=== PATIENT | female | born 1930 | race Caucasian/White ===

== ENCOUNTER 2017-10-13 14:52 | Inpatient (IN) | payer MEDICARE, OTHER ==
[~2017-10-13] VITALS: Ht 160 cm; Wt 83.0 kg
[~2017-10-13 14:52] MED LIST: ECOT81TA2 PO; LISI20 PO; LORTA5 PO
[2017-10-13 14:59] VITALS: BP 146/65; PULSE 58; RESP 16; TEMP 97.8; O2SAT 98
[2017-10-13 15:25] VITALS: RESP 17; O2SAT 98
[2017-10-13] MEDS: SODIUM CHLORIDE 0.9% FLUSH 10 ML FLUSH IVF PRN ×2 (15:28→18:22)
[2017-10-13] MEDS ORDERED: MORPHINE SULFATE 4 MG/ML INJ IV PUSH ONE ×2 (15:30→18:15)
[2017-10-13] MEDS ORDERED: LISI-515 PO (15:49)
[2017-10-13] MEDS ORDERED: ASPI1TAB57 PO (15:49)
[2017-10-13] MEDS ORDERED: ARIC23TA PO (15:49)
[2017-10-13] MEDS ORDERED: DEPA125T PO (15:49)
[2017-10-13] MEDS ORDERED: REME30TA PO (15:49)
[2017-10-13] MEDS ORDERED: AMLO5 PO (15:49)
[2017-10-13] MEDS ORDERED: VITA1000 PO (15:49)
--- NOTE | 2017-10-13 16:14 | RADRPT ---
EXAM DATE/TIME: 10/13/2017 15:48 [facility] COMPARISON: CHEST SINGLE AP, June 16, 2015, 13:13. INDICATIONS : Evaluate for pneumonia, pneumothorax, or communicable disease. Pre op hip surgery. MEDICAL HISTORY : None. SURGICAL HISTORY : None. ENCOUNTER: Initial ACUITY: 1 day PAIN SCORE: 10/10 LOCATION: Bilateral chest FINDINGS: The heart is normal. The pulmonary vascular pattern is normal. The lungs demonstrate no focal infiltr ate. There is a questionable vague nodular density overlying the right upper lung field. Outpatient C T of the chest may be helpful for further characterization of this finding if clinically indicated. D egenerative changes are noted involving the shoulders and thoracic spine. CONCLUSION: 1. No acute focal pulmonary or pulmonary vascular congestion. 2. Questionable vague nodular density overlying the right upper lung field. Outpatient CT of the ches t may be helpful for further characterization of this finding if clinically indicated. Bryson Villa MD on October 13, 2017 at 16:09 Board Certified Radiologist. This report was verified electronically.
[2017-10-13 16:15] LABS: AUTOMATED NEUTROPHIL # 6.1 TH/MM3 (1.8-7.7); BASOPHIL % 0.4 % (0.0-2.0); EOSINOPHIL # 0.1 TH/MM3 (0-0.4); EOSINOPHIL % 1.3 % (0.0-4.0); HEMATOCRIT 40.2 % (35.0-46.0); HEMOGLOBIN 13.4 GM/DL (11.6-15.3); LYMPH % 29.5 % (9.0-44.0); MEAN CELL VOLUME 94.9 FL (80.0-100.0); MEAN CORPUSCULAR HEMOGLOBIN 31.7 PG (27.0-34.0); MEAN CORPUSCULAR HGB CONC 33.4 % (32.0-36.0); MEAN PLATELET VOLUME 10.3 FL (7.0-11.0); MONO % 8.2 % (0.0-8.0); MONOCYTE # 0.8 TH/MM3 (0-0.9); NEUT % 60.6 % (16.0-70.0); PLATELET COUNT 212 TH/MM3 (150-450); RED BLOOD COUNT 4.23 MIL/MM3 (4.00-5.30); RED CELL DISTRIBUTION WIDTH 13.4 % (11.6-17.2); WHITE BLOOD COUNT 10.1 TH/MM3 (4.0-11.0)
--- NOTE | 2017-10-13 16:16 | RADRPT ---
EXAM DATE/TIME: 10/13/2017 15:51 [facility] COMPARISON: CHEST SINGLE AP, October 13, 2017, 15:48. INDICATIONS : Left pelvic pain after fall. MEDICAL HISTORY : None. SURGICAL HISTORY : None. ENCOUNTER: Initial ACUITY: 1 day PAIN SCORE: 10/10 LOCATION: Left pelvis. FINDINGS: The examination demonstrates a moderately displaced fracture through the left femoral neck. The remai nder the osseous structures of the pelvis are intact. There are degenerative changes in lower lumbar spine. CONCLUSION: 1. Moderately displaced fracture of the left femoral neck. Jose Bueno MD on October 13, 2017 at 16:13 Board Certified Radiologist. This report was verified electronically.
--- NOTE | 2017-10-13 16:18 | RADRPT ---
EXAM DATE/TIME: 10/13/2017 15:52 [facility] COMPARISON: PELVIS AP ONLY, October 13, 2017, 15:51. INDICATIONS : Left femur pain after fall. MEDICAL HISTORY : None. SURGICAL HISTORY : None. ENCOUNTER: Initial ACUITY: 1 day PAIN SCORE: 10/10 LOCATION: Left proximal femur. FINDINGS: There is a moderately displaced fracture through the left femoral neck. The remainder of the femur is intact. Bony mineralization is within normal limits. There is atherosclerotic plaquing in the superf icial femoral artery. CONCLUSION: 1. Moderately displaced fracture of the left femoral neck. Jose Bueno MD on October 13, 2017 at 16:16 Board Certified Radiologist. This report was verified electronically.
--- NOTE | 2017-10-13 16:43 | RADRPT ---
EXAM DATE/TIME: 10/13/2017 16:21 [facility] COMPARISON: No previous studies available for comparison. INDICATIONS : Head pain with dizziness and fall. RADIATION DOSE: 55.26 CTDIvol (mGy) MEDICAL HISTORY : Hypertension. Diabetes mellitus type 2. SURGICAL HISTORY : Hysterectomy. ENCOUNTER: Initial ACUITY: 1 day PAIN SCALE: 4/10 LOCATION: Bilateral cranial TECHNIQUE: Multiple contiguous axial images were obtained of the head. Using automated exposure control and adj ustment of the mA and/or kV according to patient size, radiation dose was kept as low as reasonably a chievable to obtain optimal diagnostic quality images. DICOM format image data is available electro nically for review and comparison. FINDINGS: CEREBRUM: The ventricles are normal for age. No evidence of midline shift, mass lesion, hemorrhage or acute in farction. No extra-axial fluid collections are seen. POSTERIOR FOSSA: The cerebellum and brainstem are intact. The 4th ventricle is midline. The cerebellopontine angle i s unremarkable. EXTRACRANIAL: The visualized portion of the orbits is intact. SKULL: The calvaria is intact. No evidence of skull fracture. CONCLUSION: 1. No acute intracranial abnormalities. Sahggy Young MD on October 13, 2017 at 16:35 Board Certified Radiologist. This report was verified electronically.
[2017-10-13 16:45] LABS: ALT (GPT) 14 U/L (10-53)
[2017-10-13 16:48] LABS: ALBUMIN 2.9 GM/DL (3.4-5.0); AST (GOT) 17 U/L (15-37); BICARBONATE 22.4 MEQ/L (21.0-32.0); BLOOD UREA NITROGEN 14 MG/DL (7-18); CALCIUM 8.7 MG/DL (8.5-10.1); CHLORIDE 107 MEQ/L (98-107); CREATININE 1.11 MG/DL (0.50-1.00); GLOMERULAR FILTRATION RATE 46 ML/MIN (>89); GLUCOSE,RANDOM 157 MG/DL (74-106); SODIUM (NA) 141 MEQ/L (136-145)
[2017-10-13 16:49] LABS: ALKALINE PHOSPHATASE 63 U/L (45-117); TOTAL BILIRUBIN ADULT 0.3 MG/DL (0.2-1.0); TOTAL PROTEIN 7.2 GM/DL (6.4-8.2); TROPONIN I LESS THAN 0.02 NG/ML (0.02-0.05)
--- NOTE | 2017-10-13 17:06 | RADRPT ---
EXAM DATE/TIME: 10/13/2017 16:21 [facility] COMPARISON: No previous studies available for comparison. INDICATIONS : Neck pain with dizzness and a fall. RADIATION DOSE: 21.44 CTDIvol (mGy) MEDICAL HISTORY : Hypertension. Diabetes mellitus type 2. SURGICAL HISTORY : Hysterectomy. ENCOUNTER: Initial ACUITY: 1 day PAIN SCALE: 6/10 LOCATION: Bilateral neck region. TECHNIQUE: Volumetric scanning of the cervical spine was performed. Multiplanar reconstructions in the sagittal, coronal and oblique axial planes were performed. Using automated exposure control and adjustment o f the mA and/or kV according to patient size, radiation dose was kept as low as reasonably achievable to obtain optimal diagnostic quality images. DICOM format image data is available electronically f or review and comparison. FINDINGS: There is moderate degenerative disc disease and facet arthropathy. No acute bony amounts. No preverte bral soft tissue swelling. There is opacification of the left mastoid air cells. CONCLUSION: 1. Moderate degenerative disc disease. No acute findings. Left-sided mastoid air cell disease. Shaggy Young MD on October 13, 2017 at 16:52 Board Certified Radiologist. This report was verified electronically.
--- NOTE | 2017-10-13 17:26 | PD ---
HPI Chief Complaint: Fall Time Seen by Provider: 15:12 Travel History International Travel<30 days: No Contact w/Intl Traveler<30days: No Traveled to known affect area: No History of Present Illness HPI Patient is an 87-year-old female who is brought in from her longterm after a fall. She does not remember the event. She is complaining of left hip pain. She has dementia and is a poor historian. PFSH Past Medical History Hx Anticoagulant Therapy: Yes (ASA) Arthritis: No Asthma: No Autoimmune Disease: No Anxiety: No Depression: Yes Heart Rhythm Problems: No Cardiovascular Problems: Yes (HBP) High Cholesterol: No Chest Pain: No Congestive Heart Failure: No COPD: No Cerebrovascular Accident: No Dementia: Yes Diabetes: Yes Patient Takes Glucophage: No Diminished Hearing: No Gastrointestinal Disorders: No GERD: No Genitourinary: No Headaches: No Hiatal Hernia: No Hypertension: Yes Immune Disorder: No Kidney Stones: No Medical other: Yes (VITAMIN D DEFICIENT) Musculoskeletal: No Neurologic: No Psychiatric: Yes Reproductive: No Respiratory: No Integumentary: Yes (DERMATITIS) Immunizations Current: Yes Migraines: No Renal Failure: No Seizures: No Sleep Apnea: No Tetanus Vaccination: > 5 Years Influenza Vaccination: Yes ?: Not Menopausal: Yes Past Surgical History Abdominal Surgery: No Cardiac Surgery: No Section: Yes Ear Surgery: No Endocrine Surgery: No Eye Surgery: No Genitourinary Surgery: No Gynecologic Surgery: Yes Hysterectomy: Yes Neurologic Surgery: No Oral Surgery: No Thoracic Surgery: No Other Surgery: No Social History Alcohol Use: No (DENIES) Tobacco Use: No Substance Use: No Allergies-Medications (Allergen,Severity, Reaction): Coded Allergies: No Known Allergies (Verified Allergy, Unknown, 10/13/17) Reported Meds & Prescriptions Reported Meds & Active Scripts Active Reported Vitamin D-1000 (Cholecalciferol) 1,000 Unit Tab 2,000 Units PO DAILY Remeron (Mirtazapine) 30 Mg Tab 30 Mg PO HS Norvasc (Amlodipine Besylate) 5 Mg Tab 5 Mg PO DAILY Lisinopril 20 Mg Tab 20 Mg PO DAILY Depakote DR (Divalproex Sodium) 125 Mg Tabdr 125 Mg PO BID Aspirin 81 (Aspirin) 81 Mg Tabdr 81 Mg PO DAILY Aricept (Donepezil) 23 Mg Tab 10 Mg PO DAILY Do not split, crushed or chewed. Review of Systems ROS Limitations: Clinical Condition Physical Exam Narrative GENERAL: Awake and alert, but confused. SKIN: Focused skin assessment warm/dry. No wounds or signs of infection. HEAD: Atraumatic. Normocephalic. EYES: Pupils equal and round. No scleral icterus. Extraocular movements intact. ENT: Mucous membranes pink and moist. NECK: Trachea midline. No JVD. CARDIOVASCULAR: Regular rate and rhythm. No murmur appreciated. RESPIRATORY: No accessory muscle use. Clear to auscultation. Breath sounds equal bilaterally. GASTROINTESTINAL: Abdomen soft, non-tender, nondistended. MUSCULOSKELETAL: No obvious deformities. No clubbing. No cyanosis. No edema. Tender to palpation of the left hip. Pedal pulses intact. NEUROLOGICAL: Awake and alert. No obvious cranial nerve deficits. Motor grossly within normal limits. Normal speech. PSYCHIATRIC: Appropriate mood and affect; insight and judgment normal. Data Data Last Documented VS Vital Signs Date Time Temp Pulse Resp B/P (MAP) Pulse Ox O2 Delivery O2 Flow Rate FiO2 10/13/17 17:30 97.8 75 17 130/62 (84) 98 Room Air Orders Orders Complete Blood Count With Diff (10/13/17 15:21) Comprehensive Metabolic Panel (10/13/17 15:21) Troponin I (10/13/17 15:21) Urinalysis - C+S If Indicated (10/13/17 15:21) Chest, Single Ap (10/13/17 15:21) Ct Brain W/O Iv Contrast(Rout) (10/13/17 15:21) Ct Cerv Spine W/O Contrast (10/13/17 15:21) Ecg Monitoring (10/13/17 15:21) Iv Access Insert/Monitor (10/13/17 15:21) Oximetry (10/13/17 15:21) Sodium Chloride 0.9% Flush (Ns Flush) (10/13/17 15:30) Pelvis, Ap Only (Routine) (10/13/17 ) Femur (Ap & Lat/2vws) (10/13/17 ) Morphine Inj (Morphine Inj) (10/13/17 15:30) Morphine Inj (Morphine Inj) (10/13/17 18:15) Urinary Catheter Insert/Apply (10/13/17 18:08) Admit Order (Ed Use Only) (10/13/17 ) Labs Laboratory Tests Test 10/13/17 15:31 White Blood Count 10.1 TH/MM3 Red Blood Count 4.23 MIL/MM3 Hemoglobin 13.4 GM/DL Hematocrit 40.2 % Mean Corpuscular Volume 94.9 FL Mean Corpuscular Hemoglobin 31.7 PG Mean Corpuscular Hemoglobin Concent 33.4 % Red Cell Distribution Width 13.4 % Platelet Count 212 TH/MM3 Mean Platelet Volume 10.3 FL Neutrophils (%) (Auto) 60.6 % Lymphocytes (%) (Auto) 29.5 % Monocytes (%) (Auto) 8.2 % Eosinophils (%) (Auto) 1.3 % Basophils (%) (Auto) 0.4 % Neutrophils # (Auto) 6.1 TH/MM3 Lymphocytes # (Auto) 3.0 TH/MM3 Monocytes # (Auto) 0.8 TH/MM3 Eosinophils # (Auto) 0.1 TH/MM3 Basophils # (Auto) 0.0 TH/MM3 CBC Comment DIFF FINAL Differential Comment Blood Urea Nitrogen 14 MG/DL Creatinine 1.11 MG/DL Random Glucose 157 MG/DL Total Protein 7.2 GM/DL Albumin 2.9 GM/DL Calcium Level 8.7 MG/DL Alkaline Phosphatase 63 U/L Aspartate Amino Transf (AST/SGOT) 17 U/L Alanine Aminotransferase (ALT/SGPT) 14 U/L Total Bilirubin 0.3 MG/DL Sodium Level 141 MEQ/L Potassium Level 4.5 MEQ/L Chloride Level 107 MEQ/L Carbon Dioxide Level 22.4 MEQ/L Anion Gap 12 MEQ/L Estimat Glomerular Filtration Rate 46 ML/MIN Troponin I LESS THAN 0.02 NG/ML [facility] Medical Decision Making Medical Screen Exam Complete: Yes Emergency Medical Condition: Yes Medical Record Reviewed: Yes Interpretation(s) ECG shows normal sinus rhythm at 69 with PVCs Differential Diagnosis Hip fracture versus syncope versus ICH Narrative Course Patient is an 87-year-old female who comes in complaining of left hip pain after a fall. Exam shows tenderness of left hip. IV established, labs sent. Labs show no acute abnormalities. CT head performed shows no acute abnormalities. X-ray of the lung left hip shows a femoral neck fracture. Patient given pain medicine. I spoke with orthopedics who would like the patient to be n.p.o. after midnight for surgery tomorrow. Patient admitted for further management. Last [address] 10/13/17 1521 Signed Impressions: Service Date/Time: Friday, October 13, 2017 16:21 - CONCLUSION: 1. No acute intracranial abnormalities. Shaggy Young MD Chest X-Ray 10/13/17 1521 Signed Impressions: Service Date/Time: Friday, October 13, 2017 15:48 - CONCLUSION: 1. No acute focal pulmonary or pulmonary vascular congestion. 2. Questionable vague nodular density overlying the right upper lung field. Outpatient CT of the chest may be helpful for further characterization of this finding if clinically indicated. Bryson Villa MD Cervical Spine CT 10/13/17 1521 Signed Impressions: Service Date/Time: Friday, October 13, 2017 16:21 - CONCLUSION: 1. Moderate degenerative disc disease. No acute findings. Left-sided mastoid air cell disease. Shaggy Young MD Pelvis X-Ray 10/13/17 0000 Signed Impressions: Service Date/Time: Friday, October 13, 2017 15:51 - CONCLUSION: 1. Moderately displaced fracture of the left femoral neck. Jose Bueno MD Femur X-Ray 10/13/17 0000 Signed Impressions: Service Date/Time: Friday, October 13, 2017 15:52 - CONCLUSION: 1. Moderately displaced fracture of the left femoral neck. Jose Bueno MD Diagnosis Primary Impression: Fracture of femoral neck, left Qualified Codes: S72.002A - Fracture of unspecified part of neck of left femur , initial encounter for closed fracture Admitting Information Admitting Physician Requests: Admit Elisha Mc MD Oct 13, 2017 17:26
[2017-10-13 17:30] VITALS: BP 130/62; PULSE 75; RESP 17; TEMP 97.8; O2SAT 98
[2017-10-13 18:30] VITALS: BP 130/67; PULSE 82; RESP 18; TEMP 97.8; O2SAT 98
[2017-10-13] MEDS ORDERED: MAGNESIUM HYDROXIDE SUSP 30 ML CUP PO PRN (19:00)
[2017-10-13] MEDS ORDERED: SODIUM CHLORIDE 0.9% FLUSH 10 ML FLUSH IV FLUSH PRN (19:00)
[2017-10-13] MEDS ORDERED: ACETAMINOPHEN/HYDROcodone 325 MG/5 MG TAB PO PRN (19:00)
[2017-10-13] MEDS ORDERED: ACETAMINOPHEN 325 MG TAB PO PRN ×2 (19:00)
[2017-10-13] MEDS ORDERED: NALOXONE HCL 0.4 MG/ML AMP IV PUSH PRN (19:00)
[2017-10-13] MEDS ORDERED: ONDANSETRON HCL 4 MG/2 ML VIAL IVP PRN (19:00)
--- NOTE | 2017-10-13 19:05 | HHI.HP ---
[facility] No Primary Care Physician Admission Diagnosis hip fracture Diagnoses: (1) Fracture of femoral neck, left Chief Complaint: Left hip pain Travel History International Travel<30 Days: No Contact w/Intl Traveler <30 Da: No Traveled to Known Affected Are: No History of Present Illness 87-year-old female with a history of dementia, was brought in from a local [facility] facility for evaluation of left hip pain following a mechanical fall. Patient does not know how she found herself in a brown however she complained of left hip. This study revealed fractured left femoral neck for which orthopedic surgery was consulted. The exam was limited as patient is a poor historian Review of Systems ROS Limitations: Poor Historian Except as stated in HPI: all other systems reviewed are Neg Past Family Social History Past Medical History Dementia Hypertension Hyperlipidemia Past Surgical History Reported Medications Vitamin D-1000 (Cholecalciferol) 1,000 Unit Tab 2,000 Units PO DAILY Remeron (Mirtazapine) 30 Mg Tab 30 Mg PO HS Norvasc (Amlodipine Besylate) 5 Mg Tab 5 Mg PO DAILY Lisinopril 20 Mg Tab 20 Mg PO DAILY Depakote DR (Divalproex Sodium) 125 Mg Tabdr 125 Mg PO BID Aspirin 81 (Aspirin) 81 Mg Tabdr 81 Mg PO DAILY Aricept (Donepezil) 23 Mg Tab 10 Mg PO DAILY Do not split, crushed or chewed. Allergies: Coded Allergies: No Known Allergies (Verified Allergy, Unknown, 10/13/17) Family History Due to patient's advanced age, family history not relevant for this case Social History No tobacco, alcohol or illicit drug intake Physical Exam Vital Signs Vital Signs Date Time Temp Pulse Resp B/P (MAP) Pulse Ox O2 Delivery O2 Flow Rate FiO2 10/13/17 18:30 97.8 82 18 130/67 (88) 98 Room Air 10/13/17 18:27 17 10/13/17 17:30 97.8 75 17 130/62 (84) 98 Room Air 10/13/17 15:33 16 10/13/17 15:25 17 98 Room Air 10/13/17 15:00 56 18 99 Room Air 10/13/17 14:59 97.8 58 16 146/65 (92 98 Physical Exam GENERAL: This is a well-nourished, well-developed patient, moaning in pain SKIN: No rashes, ecchymoses or lesions. Cool and dry. HEAD: Atraumatic. Normocephalic. No temporal or scalp tenderness. EYES: Pupils equal round and reactive. Extraocular motions intact. No scleral icterus. No injection or drainage. ENT: Nose without bleeding, purulent drainage or septal hematoma. Throat without erythema, tonsillar hypertrophy or exudate. Uvula midline. Airway patent. NECK: Trachea midline. No JVD or lymphadenopathy. Supple, nontender, no meningeal signs. CARDIOVASCULAR: Regular rate and rhythm without murmurs, gallops, or rubs. RESPIRATORY: Clear to auscultation. Breath sounds equal bilaterally. No wheezes , rales, or rhonchi. GASTROINTESTINAL: Abdomen soft, non-tender, nondistended. No hepato-splenomegaly , or palpable masses. No guarding. MUSCULOSKELETAL: Extremities without clubbing, cyanosis, or edema. Left lower extremity internally rotated, tender to palpation at the hip joint NEUROLOGICAL: Awake and alert. Cranial nerves II through XII intact. Motor and sensory grossly within normal limits. Laboratory Laboratory Tests Test 10/13/17 15:31 White Blood Count 10.1 Red Blood Count 4.23 Hemoglobin 13.4 Hematocrit 40.2 Mean Corpuscular Volume 94.9 Mean Corpuscular Hemoglobin 31.7 Mean Corpuscular Hemoglobin Concent 33.4 Red Cell Distribution Width 13.4 Platelet Count 212 Mean Platelet Volume 10.3 Neutrophils (%) (Auto) 60.6 Lymphocytes (%) (Auto) 29.5 Monocytes (%) (Auto) 8.2 Eosinophils (%) (Auto) 1.3 Basophils (%) (Auto) 0.4 Neutrophils # (Auto) 6.1 Lymphocytes # (Auto) 3.0 Monocytes # (Auto) 0.8 Eosinophils # (Auto) 0.1 Basophils # (Auto) 0.0 CBC Comment DIFF FINAL Differential Comment Blood Urea Nitrogen 14 Creatinine 1.11 Random Glucose 157 Total Protein 7.2 Albumin 2.9 Calcium Level 8.7 Alkaline Phosphatase 63 Aspartate Amino Transf (AST/SGOT) 17 Alanine Aminotransferase (ALT/SGPT) 14 Total Bilirubin 0.3 Sodium Level 141 Potassium Level 4.5 Chloride Level 107 Carbon Dioxide Level 22.4 Anion Gap 12 Estimat Glomerular Filtration Rate 46 Troponin I LESS THAN 0.02 Result Diagram: 10/13/17 1531 10/13/17 1531 Imaging Last Impressions Head CT 10/13/17 1521 Signed Impressions: Service Date/Time: Friday, October 13, 2017 16:21 - CONCLUSION: 1. No acute intracranial abnormalities. Shaggy Young MD Chest X-Ray 10/13/17 1521 Signed Impressions: Service Date/Time: Friday, October 13, 2017 15:48 - CONCLUSION: 1. No acute focal pulmonary or pulmonary vascular congestion. 2. Questionable vague nodular density overlying the right upper lung field. Outpatient CT of the chest may be helpful for further characterization of this finding if clinically indicated. Bryson Villa MD Cervical Spine CT 10/13/17 1521 Signed Impressions: Service Date/Time: Friday, October 13, 2017 16:21 - CONCLUSION: 1. Moderate degenerative disc disease. No acute findings. Left-sided mastoid air cell disease. Shaggy Young MD Pelvis X-Ray 10/13/17 0000 Signed Impressions: Service Date/Time: Friday, October 13, 2017 15:51 - CONCLUSION: 1. Moderately displaced fracture of the left femoral neck. Jose Bueno MD Femur X-Ray 10/13/17 0000 Signed Impressions: Service Date/Time: Friday, October 13, 2017 15:52 - CONCLUSION: 1. Moderately displaced fracture of the left femoral neck. Jose Bueno MD Septic Shock Reassessment Septic shock perfusion: reassessment completed Caprini VTE Risk Assessment Caprini VTE Risk Assessment: Mod/High Risk (score >= 2) Caprini Risk Assessment Model Point Value = 1 Point Value = 2 Point Value = 3 Point Value = 5 Age 41-60 Minor surgery BMI > 25 kg/m2 Swollen legs Varicose veins or History of unexplained or recurrent spontaneous Oral contraceptives or hormone replacement Sepsis (< 1 month) Serious lung disease, including pneumonia (< 1 month) Abnormal pulmonary function Acute myocardial infarction Congestive heart failure (< 1 month) History of inflammatory bowel disease Medical patient at bed rest Age 61-74 Arthroscopic surgery Major open surgery (> 45 min) Laparoscopic surgery (> 45 min) Malignancy Confined to bed (> 72 hours) Immobilizing plaster cast Central venous access Age >= 75 History of VTE Family history of VTE Factor V Leiden Prothrombin [id number] Lupus anticoagulant Anticardiolipin antibodies Elevated serum homocysteine Heparin-induced thrombocytopenia Other congenital or acquired thrombophilia Stroke (< 1 month) Elective arthroplasty Hip, pelvis, or leg fracture Acute spinal cord injury (< 1 month) Prophylaxis Regimen Total Risk Factor Score Risk Level Prophylaxis Regimen 0-1 Low Early ambulation 2 Moderate Order ONE of the following: *Sequential Compression Device (SCD) *Heparin 5000 units SQ BID 3-4 Higher Order ONE of the following medications: *Heparin 5000 units SQ TID *Enoxaparin/Lovenox 40 mg SQ daily (WT < 150 kg, CrCl > 30 mL/min) *Enoxaparin/Lovenox 30 mg SQ daily (WT < 150 kg, CrCl > 10-29 mL/min) *Enoxaparin/Lovenox 30 mg SQ BID (WT < 150 kg, CrCl > 30 mL/min) AND/OR *Sequential Compression Device (SCD) 5 or more Highest Order ONE of the following medications: *Heparin 5000 units SQ TID (Preferred with Epidurals) *Enoxaparin/Lovenox 40 mg SQ daily (WT < 150 kg, CrCl > 30 mL/min) *Enoxaparin/Lovenox 30 mg SQ daily (WT < 150 kg, CrCl > 10-29 mL/min) *Enoxaparin/Lovenox 30 mg SQ BID (WT < 150 kg, CrCl > 30 mL/min) AND *Sequential Compression Device (SCD) Assessment and Plan Problem List: (1) Fracture of femoral neck, left ICD Code: S72.002A - Fracture of unspecified part of neck of left femur, initial encounter for closed fracture Assessment and Plan 87-year-old female with Femoral neck fracture, left s/p mechanical fall Pelvics and femur x-ray noted and review with finding of moderately displaced left femoral neck fracture Orthopedic surgery has been consulted for repair in a.m. Pain management, nothing by mouth after midnight DVT prophylaxis post procedure per orthopedic surgery Mechanical fall Head CT noted and review by me without any intracranial abnormality Cervical spine CT with CDJ disease Fall precautions Diabetes type 2 Start low insulin sliding scale Check Hemoglobin A1c Other chronic medical conditions Stable, resume outpatient medication except aspirin DVT prophylaxis: Post procedure per orthopedic surgery Code Status Full code Physician Certification 2 Midnight Certification Type: Admission for Inpatient Services Order for Inpatient Services The services are ordered in accordance with Medicare regulations or non- Medicare payer requirements, as applicable. In the case of services not specified as inpatient-only, they are appropriately provided as inpatient services in accordance with the 2-midnight benchmark. Estimated LOS (days): 2 days is the estimated time the patient will need to remain in the hospital, assuming treatment plan goals are met and no additional complications. Post-Hospital Plan: Not yet determined Problem Qualifiers (1) Fracture of femoral neck, left: Qualified Codes: S72.002A - Fracture of unspecified part of neck of left femur , initial encounter for closed fracture Chino Dominguez MD Oct 13, 2017 19:05
[2017-10-13] MEDS ORDERED: GLUCAGON 1 MG/ML VIAL OTHER PRN (19:15)
[2017-10-13] MEDS ORDERED: DEXTROSE 50% IN WATER 50 ML VIAL(D50) IV PUSH PRN (19:15)
[2017-10-13 19:56] VITALS: BP 140/61; PULSE 65; RESP 18; TEMP 98.1; O2SAT 97
[2017-10-13] MEDS: SODIUM CHLORIDE 0.9% FLUSH 10 ML FLUSH IV FLUSH SCH (21:00)
[2017-10-13] MEDS: INSULIN ASPART SUPPLEMENTAL SCALE SQ SCH (21:00)
[2017-10-13 21:15] LABS: BACTERIA, URINE MOD /hpf; BILIRUBIN, URINE NEG (NEG); BLOOD, URINE SMALL (NEG); CALCIUM OXALATE CRYSTALS,URINE OCC /hpf; GLUCOSE,URINE TRACE mg/dL (NEG); HYALINE CAST, URINE 60 /lpf (RARE); KETONE, URINE NEG (NEG); MUCUS URINE MOD /lpf (OCC); NITRITE,URINE NEG (NEG); PH, URINE 5.5 (5.0-8.5); SQUAMOUS EPITHELIAL CELL URINE 1 /hpf (0-5); URINE COLOR DARK-YELLOW (YELLW/STRAW); URINE LEUKOCYTE ESTERASE MOD (NEG); WHITE BLOOD CELL CLUMPS FEW
[2017-10-13] MEDS: DIVALPROEX SODIUM SPRINKLES 125 MG CAP PO SCH (22:03)
[2017-10-13] MEDS: MORPHINE SULFATE 2 MG/ML INJ IV PUSH PRN (22:05)
[2017-10-13 23:21] VITALS: BP 164/69; PULSE 84; RESP 17; TEMP 97.7; O2SAT 98
[2017-10-14] MEDS: MORPHINE SULFATE 2 MG/ML INJ IV PUSH PRN ×3 (00:02→08:30)
[2017-10-14 04:08] VITALS: BP 145/65; PULSE 81; RESP 16; TEMP 98; O2SAT 97
[2017-10-14] MEDS: INSULIN ASPART SUPPLEMENTAL SCALE SQ SCH ×4 (08:00→21:00)
[2017-10-14] MEDS ORDERED: VANCOMYCIN HCL 1000 MG VIAL ONE (08:03)
[2017-10-14] MEDS ORDERED: SODIUM CHLOR 0.9% 250 ML INJ 250 ML ONE (08:03)
[2017-10-14] MEDS ORDERED: GENTAMICIN SULFATE 80 MG/2 ML VIAL ONE (08:03)
[2017-10-14] MEDS ORDERED: ceFAZolin 2 GM PREMIX 50 ML ONE (08:03)
[2017-10-14 08:05] VITALS: BP 150/69; TEMP 98.8
[2017-10-14] MEDS ORDERED: TRANEXAMIC ACID IV SCH (08:15)
[2017-10-14] MEDS ORDERED: SODIUM CHLORIDE 0.9% IV SCH (08:15)
[2017-10-14] MEDS: amLODIPine BESYLATE 5 MG TAB PO SCH (09:00)
[2017-10-14] MEDS: DIVALPROEX SODIUM SPRINKLES 125 MG CAP PO SCH ×2 (09:00→22:22)
[2017-10-14] MEDS: DONEPEZIL HCL 5 MG TAB PO SCH (09:00)
[2017-10-14] MEDS ORDERED: Post-op Orders (for Pharmacy) XX ONE (10:30)
[2017-10-14] MEDS ORDERED: MORPHINE SULFATE 4 MG/ML INJ IV PUSH PRN (10:30)
--- NOTE | 2017-10-14 10:35 | PD.OP ---
cc: Shabbir Adair MD Operative Report Date of Surgery: Oct 14, 2017 Preoperative Diagnosis: Displaced left femoral neck fracture Postoperative Diagnosis: Procedure: Left hip hemiarthroplasty Anesthesia: Gen. Surgeon: Shabbir Adair Glass Sander(s): CARA Vasquez PA-C The surgical procedure was assisted by my physician assistant case manager. My P.A. presence was necessary throughout this case for the manipulation and positioning of the surgical extremity. My P.A. was assisting me throughout the duration of this procedure. The skill set of a physician assistant case manager was medically necessary to complete this procedure. During the surgical case the certified surgical assistant was working at the back table and the physician assistant case manager was directly assisting me. Operation and Findings: PLAN OF ACTIVITY Weight bear as tolerated. IMPLANTS USED DePuy Corail size [11] stem with size [43] bipolar head and [+5] neck. DETAILS OF PROCEDURE This patient was brought into the operating room and placed on the OR table. The patient was given anesthesia. The patient received IV antibiotics. The patient was then placed in lateral decubitus position. The hip and leg were prepped with alcohol, followed by Hibiclens and draped in a usual sterile fashion. Clean air was used for this procedure. Time out procedure was performed. The procedure began with a 5 inch incision over the posterolateral hip. The subcutaneous tissue was dissected with the Bovie. The iliotibial band were split in line with fibers. The Charnley retractor was placed. The piriformis and external rotators were released from the femur and tagged with a #1 Vicryl suture. The capsule is now incised and tagged with #1 Vicryl. The femoral neck fracture was now visualized. A corkscrew was now used to remove the femoral head. The femoral head was sized and measured. Soft tissue was now protected. The hip skid was placed underneath the femoral neck. An oscillating saw was used to make a femoral neck cut. At this point attention was turned to preparation of the proximal femur. A box osteotome was used to remove the lateral cortex of the femoral neck. The T- handle reamer was used to open the femoral canal. Next, the canal was broached. A lateralizing reamer was used to help lateralize the prosthesis. At this point a trial head and neck were placed. The hip was reduced. The patient was found to have excellent stability with good range of motion. Trial components were removed. Soft tissue and bone were thoroughly irrigated. A Corail stem was now opened. The stem was now impacted into the proximal femur. Care was taken to keep appropriate anteversion. The head and neck were now impacted onto the stem. The hip was again reduced. The hip was found to have good range of motion and good stability. Leg lengths were clinically equal. The wound was thoroughly irrigated. The capsule, piriformis and iliotibial band were closed with #1 Vicryl. Subcutaneous tissue was closed with 3-0 Vicryl. The skin was closed with brian. A sterile dressing was applied with Primapore. The patient was placed into a knee immobilizer. The patient was awakened and transferred to the recovery room in stable condition. Needle and sponge counts were correct. Shabbir Adair MD Oct 14, 2017 10:35
[2017-10-14] MEDS ORDERED: ACETAMINOPHEN 1000 MG/100 ML 100 ML IV ONE (10:53)
[2017-10-14] MEDS ORDERED: *ONDANSETRON 4 MG VIAL PERIprocedural Use ONLY ONE (10:59)
--- NOTE | 2017-10-14 11:08 | MB ---
cc: Shabbir Escalante MD DATE OF CONSULT: REASON FOR CONSULTATION: Left femoral neck fracture. CONSULTING PHYSICIAN: Dr. Dominguez. HISTORY OF PRESENT ILLNESS: Mrs. Blood is a 87-year-old female. She presented to the emergency room with left hip pain. She lives in a alf. She does not remember the fall. She complains of left hip pain. She has dementia. She has pain with any hip motion. The pain is improved with rest. She is unable to give any other significant history secondary to dementia. PAST MEDICAL HISTORY: ILLNESSES: Vitamin D deficiency, dermatitis, hypertension, and dementia. MEDICATIONS: Include vitamin D, Remeron, Norvasc, lisinopril, Depakote, aspirin, Aricept. PAST SURGICAL HISTORY: The patient has had a hysterectomy. ALLERGIES: NO KNOWN DRUG ALLERGIES. SOCIAL HISTORY: The patient is currently residing in a alf. She denies alcohol, tobacco or drug use. REVIEW OF SYSTEMS: Review of systems is limited secondary to dementia. The patient denies current headache, visual changes, neck pain, chest pain, shortness of breath, abdominal pain, nausea, vomiting or recent weight loss, numbness or tingling of extremities or bowel and bladder incontinence. She complains of left hip pain with movement. FAMILY HISTORY: Noncontributory. PHYSICAL EXAMINATION: GENERAL: The patient is a pleasant 87-year-old female. She answers some questions appropriately. She is in no acute distress. VITAL SIGNS: Temperature 98.8, pulse 81, respirations 18, blood pressure 150/69, O2 sat is 97% on room air. HEAD: The patient is normocephalic. Pupils are equal. NECK: Soft, nontender. Trachea is midline. ABDOMEN: Soft, nontender, nondistended. EXTREMITIES: Examination of bilateral upper extremities reveals no obvious pain or deformity with shoulder, elbow or wrist motion. She has intact sensation in all fingers. She has good capillary refill in all fingers. Skin is intact. Examination of the right leg reveals no pain with hip, knee or ankle motion. Skin is intact. Dorsalis pedis pulse is palpable. Sensation is intact. Examination of the left leg reveals pain with any hip motion. She has no tenderness around her knee, tibia or ankle. Skin is intact. Dorsalis pedis pulse is palpable. X-RAYS: X-rays of the left hip were reviewed. X-rays reveal a displaced left femoral neck fracture. LABORATORY DATA: The patient has a white blood cell count of 10.1, hemoglobin of 13.4 and hematocrit of 40.2. BUN is 14 and creatinine is 1.1. IMPRESSION: 1. Dementia. 2. Hypertension. 3. Postmenopausal osteoporosis. 4. Displaced left femoral neck fracture. PLAN: Treatment options were discussed with the patient as well as her son. At this point I would recommend left hip hemiarthroplasty for treatment of left femoral neck fracture. The risks of surgery include bleeding, infection, injuries to arteries, nerves and blood vessels, nonunion, malunion, painful hardware, hip dislocation as well as medical complications including blood clot, stroke, heart attack and . All questions were answered. I will also plan on calcium and vitamin D supplementation for osteoporosis. I will plan on surgery today. A mid-level provider in my office, nurse practitioner or PA, may see this patient on a follow-up basis and continue to implement the objective of this plan including: Starting or adjusting medications, injections of muscle, tendon, bursa or joints, cast application, orthotic or brace application, physical therapy, further radiographic studies including x-ray, MRI, CT, ultrasounds or bone scan, vascular studies, neurologic studies, or other specialist consultations, and proceeding with surgical management as appropriate. MD BRUCE Burden/CED , 10:42 AM , 11:08 AM
[2017-10-14] MEDS ORDERED: *MEPERIDINE 25 MG INJ VIAL PERIprocedural Use ONLY ONE (11:10)
[2017-10-14] MEDS ORDERED: ERGOCALCIFEROL (VIT D2) 50,000 UNIT CAP PO ONE (11:15)
[2017-10-14] MEDS ORDERED: DO NOT ADM ANY ANTICOAGULANT DRUGS PRN (11:45)
[2017-10-14] MEDS ORDERED: ONDANSETRON HCL 4 MG/2 ML VIAL IV ONE (12:00)
[2017-10-14] MEDS ORDERED: DEXAMETHASONE SOD PHOS 4 MG/ML VIAL IV ONE (12:00)
[2017-10-14] MEDS ORDERED: PROPOFOL 200 MG/20 ML AMP IV ONE (12:00)
[2017-10-14] MEDS ORDERED: LACTATED RINGER'S 1000 ML INJ 1,000 ML IV ONE (12:00)
[2017-10-14] MEDS ORDERED: GLYCOPYRROLATE 1 MG/5 ML SYRINGE IV PUSH ONE (12:00)
[2017-10-14] MEDS ORDERED: NEOSTIGMINE 5 MG/5 ML SYRINGE IV PUSH ONE (12:00)
[2017-10-14] MEDS ORDERED: PHENYLEPH/NS 1000 MCG/10 ML SYR IV ONE (12:00)
[2017-10-14] MEDS ORDERED: LIDOCAINE HCL 1% PF 5 ML SYRINGE OTHER ONE (12:00)
[2017-10-14] MEDS ORDERED: ROCURONIUM INJ 50 MG/5 ML SYRINGE IV PUSH ONE (12:00)
--- NOTE | 2017-10-14 12:01 | RADRPT ---
EXAM DATE/TIME: 10/14/2017 11:15 [facility] COMPARISON: No previous studies available for comparison. INDICATIONS : Post op hip arthroplasty. MEDICAL HISTORY : Hypertension. Diabetes mellitus type II. SURGICAL HISTORY : Hysterectomy. ENCOUNTER: Initial ACUITY: 1 day PAIN SCORE: Non-responsive. LOCATION: Left hip FINDINGS: Left hip replacement is noted with prosthesis in good position. Degenerative changes are noted involv ing lower lumbar spine and right hip. CONCLUSION: Status post left hip replacement with prosthesis in good position. Bryson Villa MD on October 14, 2017 at 11:57 Board Certified Radiologist. This report was verified electronically.
[2017-10-14] MEDS: SODIUM CHLORIDE 0.9% FLUSH 10 ML FLUSH IV FLUSH SCH ×2 (12:43→21:00)
--- NOTE | 2017-10-14 14:15 | EKG ---
Date Performed: 10/13/2017 Time Performed: 15:13:49 PTAGE: 87 years EKG: Sinus rhythm WITH FREQUENT VENTRICULAR PREMATURE COMPLEXES MARKED LEFT AXIS DEVIATION INCOMPLETE RIGHT BUNDLE BRA NCH BLOCK POOR QUALITY TRACING ABNORMAL ECG Compared to PREVIOUS TRACING , this is a poor quality tracing but probably is sinus rhythm with evid ence of concealed AV node conduction after the premature ventricular contractions. There has been no significant serial change. PREVIOUS TRACING DOCTOR: Freya Caban Interpretating Date/Time 10/14/2017 14:13:14
--- NOTE | 2017-10-14 14:15 | EKG ---
Date Performed: 10/13/2017 Time Performed: 21:20:21 PTAGE: 87 years EKG: Sinus rhythm MARKED LEFT AXIS DEVIATION INCOMPLETE RIGHT BUNDLE BRANCH BLOCK LEFT ANTERIOR FASCICULAR BLOCK ABNOR MAL ECG Compared to PREVIOUS TRACING , the frequent PVCs have resolved but there is otherwise no significant serial change when allowing for the difference in technique. PREVIOUS TRACING DOCTOR: Freya Caban Interpretating Date/Time 10/14/2017 14:14:40
[2017-10-14] MEDS: ceFAZolin 2 GM PREMIX 50 ML IV SCH ×2 (15:20→22:23)
[2017-10-14] MEDS ORDERED: XARE10TA PO (16:07)
[2017-10-14] MEDS ORDERED: WALKER/ADULT/FO1 MIS (16:07)
[2017-10-14] MEDS ORDERED: NORC5TAB PO (16:07)
[2017-10-14] MEDS ORDERED: VITA500012 PO (16:07)
[2017-10-14] MEDS ORDERED: CALCTAB19 PO (16:07)
[2017-10-14 16:12] LABS: HEMOGLOBIN A1C 5.7 % (4.3-6.0)
--- NOTE | 2017-10-14 17:17 | HHI.PR ---
Subjective Remarks Follow-up left hip fracture. Patient seen and examined, sitting up in chair post surgery. Awake and alert, some drowsiness. Family at bedside. Denies any pain. Vital signs are stable. On room air, O2 saturations 96%. We will continue to monitor. Assess food tolerance today. Control nausea. Objective Vitals Vital Signs Date Time Temp Pulse Resp B/P (MAP) Pulse Ox O2 Delivery O2 Flow Rate FiO2 10/14/17 15:00 98.0 65 14 135/65 (88) 97 Nasal Cannula 3 10/14/17 14:00 74 12 138/63 (88) 97 Nasal Cannula 3 10/14/17 13:00 77 13 156/84 (108) 99 Nasal Cannula 3 10/14/17 12:30 88 12 147/65 (92) 100 Nasal Cannula 3 10/14/17 12:00 94 12 151/65 (93) 99 Nasal Cannula 3 10/14/17 11:45 103 12 147/63 (91) 97 Nasal Cannula 3 10/14/17 11:30 104 14 160/64 (96) 97 Nasal Cannula 3 10/14/17 11:15 112 14 158/71 (100) 92 Nasal Cannula 3 10/14/17 11:00 115 15 161/38 (79) 95 Nasal Cannula 3 10/14/17 10:52 98.5 110 25 156/70 (98) 92 Nasal Cannula 3 10/14/17 08:05 98.8 81 18 150/69 (96) 97 10/14/17 04:08 98.0 81 16 145/65 (91) 97 Room Air 10/14/17 01:00 16 10/13/17 23:21 97.7 84 17 164/69 (100) 98 Nasal Cannula 2.00 10/13/17 19:56 98.1 65 18 140/61 (87) 97 Room Air 10/13/17 18:30 97.8 82 18 130/67 (88) 98 Room Air 10/13/17 18:27 17 10/13/17 17:30 97.8 75 17 130/62 (84) 98 Room Air I/O 10/13/17 10/13/17 10/13/17 10/14/17 10/14/17 10/14/17 07:00 15:00 23:00 07:00 15:00 23:00 Intake Total 20 ml Output Total 200 ml 120 ml Balance -200 ml -100 ml Intake Oral 20 ml IV Total 0 ml Output Urine Total 200 ml 120 ml Result Diagram: 10/13/17 1531 10/13/17 1531 Imaging Last Impressions Hip and Pelvis X-Ray 10/14/17 1030 Signed Impressions: Service Date/Time: September 11:15 - CONCLUSION: Status post left hip replacement with prosthesis in good position. Bryson Villa MD Head CT 10/13/17 1521 Signed Impressions: Service Date/Time: Friday, October 13, 2017 16:21 - CONCLUSION: 1. No acute intracranial abnormalities. Shaggy Young MD Chest X-Ray 10/13/17 1521 Signed Impressions: Service Date/Time: Friday, October 13, 2017 15:48 - CONCLUSION: 1. No acute focal pulmonary or pulmonary vascular congestion. 2. Questionable vague nodular density overlying the right upper lung field. Outpatient CT of the chest may be helpful for further characterization of this finding if clinically indicated. Bryson Villa MD Cervical Spine CT 10/13/17 1521 Signed Impressions: Service Date/Time: Friday, October 13, 2017 16:21 - CONCLUSION: 1. Moderate degenerative disc disease. No acute findings. Left-sided mastoid air cell disease. Shaggy Young MD Pelvis X-Ray 10/13/17 0000 Signed Impressions: Service Date/Time: Friday, October 13, 2017 15:51 - CONCLUSION: 1. Moderately displaced fracture of the left femoral neck. Jose Bueno MD Femur X-Ray 10/13/17 0000 Signed Impressions: Service Date/Time: Friday, October 13, 2017 15:52 - CONCLUSION: 1. Moderately displaced fracture of the left femoral neck. Jose Bueno MD Objective Remarks GENERAL: Well-developed, well-nourished patient in NAD. SKIN: Warm and dry. No rash. HEAD: Normocephalic. Atraumatic. EYES: Pupils equal and round. No scleral icterus. No injection or drainage. ENT: No nasal bleeding or discharge. Mucous membranes pink and moist. NECK: Supple. Trachea midline. CARDIOVASCULAR: Regular rate and rhythm. S1, S2 noted. No murmur appreciated. RESPIRATORY: No accessory muscle use. Clear to auscultation. Breath sounds equal bilaterally. GASTROINTESTINAL: Abdomen soft, non-tender, nondistended. Normoactive bowel sounds x4. MUSCULOSKELETAL: No obvious deformities. Extremities without clubbing, cyanosis , or edema. Left hip dressing in place. NEUROLOGICAL: Awake and alert. No obvious cranial nerve deficits. Motor grossly within normal limits. 5/5 muscle strength in bilateral upper and lower extremities. Normal speech. PSYCHIATRIC: Appropriate mood and affect; insight and judgment normal. A/P Problem List: (1) Fracture of femoral neck, left ICD Code: S72.002A - Fracture of unspecified part of neck of left femur, initial encounter for closed fracture Assessment and Plan 87-year-old female with Femoral neck fracture, left s/p mechanical fall Pelvics and femur x-ray noted and review with finding of moderately displaced left femoral neck fracture Orthopedic surgery has been consulted for repair today. Pain management, IV narcotics as needed for pain scale, [place] p.o. available.. DVT prophylaxis post procedure per orthopedic surgery Mechanical fall Head CT noted and review by me without any intracranial abnormality Cervical spine CT with CDJ disease Fall precautions Diabetes type 2 Accu-Chek before meals at bedtime, sliding scale, color as needed. Check Hemoglobin A1c, pending. Other chronic medical conditions Stable, resume outpatient medication except aspirin DVT prophylaxis: Post procedure per orthopedic surgery Problem Qualifiers (1) Fracture of femoral neck, left: Qualified Codes: S72.002A - Fracture of unspecified part of neck of left femur , initial encounter for closed fracture Elisha Coker Oct 14, 2017 17:17
[2017-10-14] MEDS: ACETAMINOPHEN/HYDROcodone 325 MG/5 MG TAB PO PRN ×2 (17:40→22:22)
[2017-10-14 20:00] VITALS: BP 152/65; PULSE 65; RESP 16; TEMP 96.7; O2SAT 93
[2017-10-15] VITALS (8 sets, daily range): BP systolic 142–180; BP diastolic 65–74; PULSE 68–86; RESP 16–18; TEMP 96.3–98.8; O2SAT 92–94
[2017-10-15] MEDS: ceFAZolin 2 GM PREMIX 50 ML IV SCH (04:05)
[2017-10-15] MEDS: ACETAMINOPHEN/HYDROcodone 325 MG/5 MG TAB PO PRN ×4 (04:28→21:16)
[2017-10-15 04:45] LABS: HEMATOCRIT 37.4 % (35.0-46.0); HEMOGLOBIN 12.5 GM/DL (11.6-15.3)
--- NOTE | 2017-10-15 06:45 | PD.ORT.PN ---
Subjective Subjective Remarks Pain controlled. Patient is confused Objective Vitals Vital Signs Date Time Temp Pulse Resp B/P (MAP) Pulse Ox O2 Delivery O2 Flow Rate FiO2 10/15/17 04:40 98.4 76 18 167/72 (103) 92 10/15/17 00:30 96.9 68 16 148/69 (95) 94 10/14/17 20:00 96.7 65 16 152/65 (94) 93 10/14/17 15:00 98.0 65 14 135/65 (88) 97 Nasal Cannula 3 10/14/17 14:00 74 12 138/63 (88) 97 Nasal Cannula 3 10/14/17 13:00 77 13 156/84 (108) 99 Nasal Cannula 3 10/14/17 12:30 88 12 147/65 (92) 100 Nasal Cannula 3 10/14/17 12:00 94 12 151/65 (93) 99 Nasal Cannula 3 10/14/17 11:45 103 12 147/63 (91) 97 Nasal Cannula 3 10/14/17 11:30 104 14 160/64 (96) 97 Nasal Cannula 3 10/14/17 11:15 112 14 158/71 (100) 92 Nasal Cannula 3 10/14/17 11:00 115 15 161/38 (79) 95 Nasal Cannula 3 10/14/17 10:52 98.5 110 25 156/70 (98) 92 Nasal Cannula 3 10/14/17 08:05 98.8 81 18 150/69 (96) 97 I/O 10/14/17 10/14/17 10/14/17 10/15/17 10/15/17 10/15/17 07:00 15:00 23:00 07:00 15:00 23:00 Intake Total 20 ml Output Total 200 ml 120 ml Balance -200 ml -100 ml Intake Oral 20 ml IV Total 0 ml Output Urine Total 200 ml 120 ml Result Diagram: 10/15/17 0427 10/13/17 1531 Imaging Last 24 hours Impressions Hip and Pelvis X-Ray 10/14/17 1030 Signed Impressions: Service Date/Time: September 11:15 - CONCLUSION: Status post left hip replacement with prosthesis in good position. Bryson Villa MD Objective Remarks Left lower extremity: Clean dry dressings intact. Distally intact sensation with active movement of ankle with dorsiflexion and plantar flexion Assessment & Plan Assessment and Plan Left hip hemiarthroplasty POD 1 Weightbearing as tolerated with posterior hip precautions Begin daily dressing changes POD 2 with Primapore only. Beginning 10/24/2017 begin adding Xeroform with Primapore 2 breakdown skin glue. Lovenox Incentive spirometry Knee immobilizer while in bed Plan on discharge to rehabilitation this weekend when bed is available Follow-up Dr. Adair or PA in 2 weeks Gibson Hwang Jr. Oct 15, 2017 06:44
[2017-10-15] MEDS: INSULIN ASPART SUPPLEMENTAL SCALE SQ SCH ×4 (07:20→21:15)
[2017-10-15] MEDS ORDERED: cloNIDine HCL 0.1 MG TAB PO PRN (09:00)
--- NOTE | 2017-10-15 09:00 | HHI.PR ---
Subjective Remarks Follow-up on patient with left hip fracture, status post bipolar hip replacement. Patient seen and examined. Patient awake and alert. She is confused. Partially oriented to self and place. She is complaining of left hip pain. Denies any fever or chills. Denies any chest pain or shortness of breath. Objective Vitals Vital Signs Date Time Temp Pulse Resp B/P (MAP) Pulse Ox O2 Delivery O2 Flow Rate FiO2 10/15/17 08:00 98.8 78 17 180/72 (108) 94 10/15/17 04:40 98.4 76 18 167/72 (103) 92 10/15/17 00:30 96.9 68 16 148/69 (95) 94 10/14/17 20:00 96.7 65 16 152/65 (94) 93 10/14/17 15:00 98.0 65 14 135/65 (88) 97 Nasal Cannula 3 10/14/17 14:00 74 12 138/63 (88) 97 Nasal Cannula 3 10/14/17 13:00 77 13 156/84 (108) 99 Nasal Cannula 3 10/14/17 12:30 88 12 147/65 (92) 100 Nasal Cannula 3 10/14/17 12:00 94 12 151/65 (93) 99 Nasal Cannula 3 10/14/17 11:45 103 12 147/63 (91) 97 Nasal Cannula 3 10/14/17 11:30 104 14 160/64 (96) 97 Nasal Cannula 3 10/14/17 11:15 112 14 158/71 (100) 92 Nasal Cannula 3 10/14/17 11:00 115 15 161/38 (79) 95 Nasal Cannula 3 10/14/17 10:52 98.5 110 25 156/70 (98) 92 Nasal Cannula 3 I/O 10/14/17 10/14/17 10/14/17 10/15/17 10/15/17 10/15/17 07:00 15:00 23:00 07:00 15:00 23:00 Intake Total 20 ml 240 ml Output Total 200 ml 120 ml 350 ml Balance -200 ml -100 ml -110 ml Intake Oral 20 ml 240 ml IV Total 0 ml Output Urine Total 200 ml 120 ml 350 ml # Bowel Movements 0 Result Diagram: 10/15/17 0427 10/13/17 1531 Imaging Last Impressions Hip and Pelvis X-Ray 10/14/17 1030 Signed Impressions: Service Date/Time: September 11:15 - CONCLUSION: Status post left hip replacement with prosthesis in good position. Bryson Villa MD Head CT 10/13/17 1521 Signed Impressions: Service Date/Time: Friday, October 13, 2017 16:21 - CONCLUSION: 1. No acute intracranial abnormalities. Shaggy Young MD Chest X-Ray 10/13/17 1521 Signed Impressions: Service Date/Time: Friday, October 13, 2017 15:48 - CONCLUSION: 1. No acute focal pulmonary or pulmonary vascular congestion. 2. Questionable vague nodular density overlying the right upper lung field. Outpatient CT of the chest may be helpful for further characterization of this finding if clinically indicated. Bryson Villa MD Cervical Spine CT 10/13/17 1521 Signed Impressions: Service Date/Time: Friday, October 13, 2017 16:21 - CONCLUSION: 1. Moderate degenerative disc disease. No acute findings. Left-sided mastoid air cell disease. Shaggy Young MD Pelvis X-Ray 10/13/17 0000 Signed Impressions: Service Date/Time: Friday, October 13, 2017 15:51 - CONCLUSION: 1. Moderately displaced fracture of the left femoral neck. Jose Buneo MD Femur X-Ray 10/13/17 0000 Signed Impressions: Service Date/Time: Friday, October 13, 2017 15:52 - CONCLUSION: 1. Moderately displaced fracture of the left femoral neck. Jose Bueon MD Objective Remarks GENERAL: Well-developed, well-nourished female patient in NAD. Awake and alert. Confused, only partially oriented to self and place. SKIN: Warm and dry. HEAD: Normocephalic. Atraumatic. EYES: EOMI. No scleral icterus. No injection or drainage. ENT: No nasal bleeding or discharge. Mucous membranes pink and moist. NECK: Supple. CARDIOVASCULAR: Regular rate and rhythm. S1, S2 noted. No murmur appreciated. RESPIRATORY: Nonlabored. Diminished but clear to auscultation. Breath sounds equal bilaterally. GASTROINTESTINAL: Abdomen soft, non-tender, nondistended. Normoactive bowel sounds x4. MUSCULOSKELETAL: Extremities without clubbing, cyanosis, or edema. Left hip dressing in place, C/D/I. NEUROLOGICAL: Awake and alert. No obvious cranial nerve deficits. Motor grossly within normal limits. 5/5 muscle strength in bilateral upper and lower extremities. Normal speech. Procedures s/p Left hip hemiarthroplasty 10/14/17 Medications and IVs Reported Meds & Active Scripts Active Calcium 600+D 200 (Calcium Carbonate-Vitamin D) 600-200 Mg-Unit Tab 1 Tab PO BID Ergocalciferol 50,000 Unit Cap 50,000 Units PO Q7D Xarelto (Rivaroxaban) 10 Mg Tab 10 Mg PO DAILY [place] (Hydrocodone-Acetaminophen) 5 Mg-325 Mg Tab 1 Tab PO Q4H PRN Reported Vitamin D-1000 (Cholecalciferol) 1,000 Unit Tab 2,000 Units PO DAILY Remeron (Mirtazapine) 30 Mg Tab 30 Mg PO HS Norvasc (Amlodipine Besylate) 5 Mg Tab 5 Mg PO DAILY Lisinopril 20 Mg Tab 20 Mg PO DAILY Depakote DR (Divalproex Sodium) 125 Mg Tabdr 125 Mg PO BID Aspirin 81 (Aspirin) 81 Mg Tabdr 81 Mg PO DAILY Aricept (Donepezil) 23 Mg Tab 10 Mg PO DAILY Do not split, crushed or chewed. A/P Problem List: (1) Fracture of femoral neck, left ICD Code: S72.002A - Fracture of unspecified part of neck of left femur, initial encounter for closed fracture Assessment and Plan 87-year-old female with Left femoral neck fracture, s/p mechanical fall s/p Left hip hemiarthroplasty POD#1 Pelvics and femur x-ray noted and review with finding of moderately displaced left femoral neck fracture Orthopedic following, WBAT with posterior hip precautions, begin daily dressing changes tomorrow with Primapore only. Beginning 10/24/2017 begin adding Xeroform with Primapore 2 breakdown skin glue. Knee immobilizer while in bed. F/U with Ortho in 2 weeks. IS at bedside, encourage hourly use while awake Pain management, IV narcotics as needed for pain scale, [place] p.o. available with bowel regimen Leukocytosis white count up to 13.5 CXR today shows no acute cardiopulmonary process, images reviewed by me. Order IS, encourage hourly use while awake. patient is afebrile. does not appear septic. obtain lactic acid obtain UA repeat CBC in am Mechanical fall Head CT noted without any intracranial abnormality Cervical spine CT with degenerative disc disease, no acute fracture noted Fall precautions Hypertension, not well controlled Resume home dose of Norvasc Clonidine prn with parameter Continue to monitor BP and adjust treatment accordingly Diabetes type 2 Blood sugars well controlled Accu-Chek before meals at bedtime, sliding scale as needed Hemoglobin A1c 5.7 ?JULISA on CKD Creatinine 1.11, unknown baseline but previous creatinine 1.20 06/18 in the system Avoid nephrotoxic agents Continue to monitor renal indices as indicated - repeat BMP pending Dementia Continue patient on home dose of Aricept Vitamin D deficiency Patient started on 5000 units daily vitamin D, continue Incidental finding of vague nodular density overlying right upper lung field per CXR Recommend outpatient CT of the chest for further evaluation Other chronic medical conditions Stable, resume outpatient medication except aspirin DVT prophylaxis: Lovenox 30mg sq now and Xarelto at discharge Problem Qualifiers (1) Fracture of femoral neck, left: Qualified Codes: S72.002A - Fracture of unspecified part of neck of left femur , initial encounter for closed fracture Ritu King Oct 15, 2017 09:00
[2017-10-15] MEDS: DONEPEZIL HCL 5 MG TAB PO SCH (10:07)
[2017-10-15] MEDS: SODIUM CHLORIDE 0.9% FLUSH 10 ML FLUSH IV FLUSH SCH ×2 (10:07→21:14)
[2017-10-15] MEDS: DOCUSATE SODIUM 50 MG/SENNA 8.6 MG TAB PO SCH ×2 (10:07→21:14)
[2017-10-15] MEDS: CHOLECALCIFEROL (VIT D3) 5000 UNIT CAP PO SCH (10:07)
[2017-10-15] MEDS: DIVALPROEX SODIUM SPRINKLES 125 MG CAP PO SCH ×2 (10:07→21:14)
[2017-10-15] MEDS: amLODIPine BESYLATE 5 MG TAB PO SCH (10:07)
[2017-10-15] MEDS: ENOXAPARIN SODIUM 30 MG/0.3 ML SYRINGE SQ SCH (10:07)
--- NOTE | 2017-10-15 12:19 | RADRPT ---
EXAM DATE/TIME: 10/15/2017 11:49 [facility] COMPARISON: CHEST SINGLE AP, October 13, 2017, 15:48. INDICATIONS : Infiltrate. MEDICAL HISTORY : Hypertension. Diabetes mellitus type II. SURGICAL HISTORY : Hysterectomy ENCOUNTER: Subsequent ACUITY: 1 day PAIN SCORE: Non-responsive. LOCATION: Bilateral chest FINDINGS: Portable AP view of the chest demonstrates a normal-sized cardiac silhouette. The lungs demonstrate n o definite effusion, consolidation, or pneumothorax. The bones and soft tissues demonstrate no acute finding. There is calcification of the aorta. CONCLUSION: No acute cardiopulmonary abnormality is identified. No abnormality is identified in the right upper l obe. Octavio Warner MD on October 15, 2017 at 12:17 Board Certified Radiologist. This report was verified electronically.
[2017-10-15 12:33] LABS: BICARBONATE 28.1 MEQ/L (21.0-32.0); CALCIUM 8.7 MG/DL (8.5-10.1); CREATININE 0.95 MG/DL (0.50-1.00)
[2017-10-15 14:45] LABS: AUTOMATED NEUTROPHIL # 10.4 TH/MM3 (1.8-7.7); BASOPHIL # 0.1 TH/MM3 (0-0.2); BASOPHIL % 0.4 % (0.0-2.0); EOSINOPHIL % 0.2 % (0.0-4.0); HEMATOCRIT 37.4 % (35.0-46.0); LYMPHOCYTE # 1.8 TH/MM3 (1.0-4.8); MEAN CELL VOLUME 95.7 FL (80.0-100.0); MEAN CORPUSCULAR HEMOGLOBIN 31.2 PG (27.0-34.0); MEAN CORPUSCULAR HGB CONC 32.6 % (32.0-36.0); MEAN PLATELET VOLUME 10.2 FL (7.0-11.0); MONO % 9.8 % (0.0-8.0); MONOCYTE # 1.3 TH/MM3 (0-0.9); NEUT % 76.6 % (16.0-70.0); PLATELET COUNT 153 TH/MM3 (150-450); RED BLOOD COUNT 3.91 MIL/MM3 (4.00-5.30); RED CELL DISTRIBUTION WIDTH 13.4 % (11.6-17.2); WHITE BLOOD COUNT 13.5 TH/MM3 (4.0-11.0)
[2017-10-15 14:52] LABS: HEMOGLOBIN 12.5 GM/DL (11.6-15.3)
[2017-10-15 15:37] LABS: BANDS 6 % (0-6); LYMPHOCYTES 9 % (9-44); MONOCYTES 17 % (0-8); POLYS (SEG NEUTROPHILS) 68 % (16-70)
[2017-10-15 15:38] LABS: TOXIC VACUOLATION PRESENT (NONE SEEN)
[2017-10-15 16:48] LABS: MAGNESIUM 1.8 MG/DL (1.5-2.5); PHOSPHORUS 2.7 MG/DL (2.5-4.9)
[2017-10-16 00:45] LABS: BILIRUBIN, URINE NEG (NEG); BLOOD, URINE SMALL (NEG); GLUCOSE,URINE NEG (NEG); HYALINE CAST, URINE 2 /lpf (RARE); KETONE, URINE 10 mg/dL (NEG); MUCUS URINE FEW /lpf (OCC); NITRITE,URINE NEG (NEG); PH, URINE 5.5 (5.0-8.5); SQUAMOUS EPITHELIAL CELL URINE 14 /hpf (0-5); URINE COLOR YELLOW (YELLW/STRAW); URINE LEUKOCYTE ESTERASE LARGE (NEG)
[2017-10-16] MEDS ORDERED: SODIUM CHLORID 0.9% 500 ML INJ 500 ML IV ONE (01:15)
[2017-10-16 03:30] VITALS: BP 179/72; PULSE 75; RESP 17; TEMP 98.7; O2SAT 92
[2017-10-16 05:36] VITALS: O2SAT 93
[2017-10-16] MEDS: ACETAMINOPHEN/HYDROcodone 325 MG/5 MG TAB PO PRN ×3 (05:49→14:23)
[2017-10-16] MEDS: DIVALPROEX SODIUM SPRINKLES 125 MG CAP PO SCH (07:50)
[2017-10-16] MEDS: amLODIPine BESYLATE 5 MG TAB PO SCH (07:50)
[2017-10-16] MEDS: DONEPEZIL HCL 5 MG TAB PO SCH (07:50)
[2017-10-16] MEDS: INSULIN ASPART SUPPLEMENTAL SCALE SQ SCH ×2 (07:51→12:00)
[2017-10-16] MEDS: CHOLECALCIFEROL (VIT D3) 5000 UNIT CAP PO SCH (07:51)
[2017-10-16] MEDS: SODIUM CHLORIDE 0.9% FLUSH 10 ML FLUSH IV FLUSH SCH (07:51)
[2017-10-16] MEDS: DOCUSATE SODIUM 50 MG/SENNA 8.6 MG TAB PO SCH (07:51)
[2017-10-16] MEDS: ENOXAPARIN SODIUM 30 MG/0.3 ML SYRINGE SQ SCH (07:51)
[2017-10-16 08:00] VITALS: BP 177/74; PULSE 76; RESP 17; TEMP 96; O2SAT 91
--- NOTE | 2017-10-16 09:16 | PD.ORT.PN ---
Subjective Subjective Remarks post op left hip pain Objective Vitals Vital Signs Date Time Temp Pulse Resp B/P (MAP) Pulse Ox O2 Delivery O2 Flow Rate FiO2 10/16/17 05:36 93 Nasal Cannula 3.00 10/16/17 03:30 98.7 75 17 179/72 (107) 92 10/15/17 23:10 97.9 86 17 167/72 (103) 92 10/15/17 19:55 97.3 78 18 143/73 (96) 94 10/15/17 16:00 96.3 70 17 171/74 (106) 93 10/15/17 12:00 98.0 81 17 142/65 (90) 92 10/15/17 10:30 94 Nasal Cannula 3.00 I/O 10/15/17 10/15/17 10/15/17 10/16/17 10/16/17 10/16/17 07:00 15:00 23:00 07:00 15:00 23:00 Intake Total 240 ml 480 ml 740 ml Output Total 350 ml 550 ml 175 ml Balance -110 ml -70 ml 565 ml Intake Oral 240 ml 480 ml 240 ml IV Total 500 ml Output Urine Total 350 ml 550 ml 175 ml Bladder Scan Volume Amount 112 ml # Bowel Movements 0 0 2 Result Diagram: 10/15/17 0427 10/15/17 1142 Imaging Last 24 hours Impressions Hip and Pelvis X-Ray 10/14/17 1030 Signed Impressions: Service Date/Time: September 11:15 - CONCLUSION: Status post left hip replacement with prosthesis in good position. Bryson Villa MD Objective Remarks also seen and examined by Dr. Harish Henson Left lower extremity: Clean dry dressings intact Distally intact sensation with active movement of ankle with dorsiflexion and plantar flexion Assessment & Plan Assessment and Plan Left hip hemiarthroplasty POD #2 Weightbearing as tolerated with posterior hip precautions Begin daily dressing changes today, 10/16, with Primapore only. Beginning 2017 begin adding Xeroform with Primapore 2 breakdown skin glue. Lovenox DVT prop Incentive spirometry Knee immobilizer while in bed discharge to rehab today, orthopedically stable Follow-up Dr. Adair or [place] in 2 weeks Eli Canales Oct 16, 2017 09:16
--- NOTE | 2017-10-16 10:57 | HHI.PR ---
Subjective Remarks 87-year-old female with a history of dementia, was brought in from a local custodial facility for evaluation of left hip pain following a mechanical fall. Patient does not know how she found herself in a brown however she complained of left hip. This study revealed fractured left femoral neck for which orthopedic surgery was consulted. The exam was limited as patient is a poor historian 3-15 Follow-up left hip fracture. Patient seen and examined, sitting up in chair post surgery. Awake and alert, some drowsiness. Family at bedside. Denies any pain. Vital signs are stable. On room air, O2 saturations 96%. We will continue to monitor. Assess food tolerance today. Control nausea. 3-16 Follow-up on patient with left hip fracture, status post bipolar hip replacement. Patient seen and examined. Patient awake and alert. She is confused. Partially oriented to self and place. She is complaining of left hip pain. Denies any fever or chills. Denies any chest pain or shortness of breath. 3-17 [facility] CAN DC TO SNF TODAY IF BED IS AVAILABLE UTI WILL TREAT AT DC DC TO SNF TODAY 3008 FILLED OUT MOBILE WITH PT Objective Vitals Vital Signs Date Time Temp Pulse Resp B/P (MAP) Pulse Ox O2 Delivery O2 Flow Rate FiO2 10/16/17 08:00 96.0 76 17 177/74 (108) 91 10/16/17 05:36 93 Nasal Cannula 3.00 10/16/17 03:30 98.7 75 17 179/72 (107) 92 10/15/17 23:10 97.9 86 17 167/72 (103) 92 10/15/17 19:55 97.3 78 18 143/73 (96) 94 10/15/17 16:00 96.3 70 17 171/74 (106) 93 10/15/17 12:00 98.0 81 17 142/65 (90) 92 I/O 10/15/17 10/15/17 10/15/17 10/16/17 10/16/17 10/16/17 07:00 15:00 23:00 07:00 15:00 23:00 Intake Total 240 ml 480 ml 740 ml Output Total 350 ml 550 ml 175 ml 1000 ml Balance -110 ml -70 ml 565 ml -1000 ml Intake Oral 240 ml 480 ml 240 ml IV Total 500 ml Output Urine Total 350 ml 550 ml 175 ml 1000 ml Bladder Scan Volume Amount 112 ml # Bowel Movements 0 0 2 Result Diagram: 10/15/17 0427 10/15/17 1142 Other Results Laboratory Tests Test 10/13/17 15:31 10/13/17 20:25 10/15/17 04:27 10/15/17 11:42 White Blood Count 10.1 TH/MM3 13.5 TH/MM3 Red Blood Count 4.23 MIL/MM3 3.91 MIL/MM3 Hemoglobin 13.4 GM/DL 12.5 GM/DL Hematocrit 40.2 % 37.4 % Mean Corpuscular Volume 94.9 FL 95.7 FL Mean Corpuscular Hemoglobin 31.7 PG 31.2 PG Mean Corpuscular Hemoglobin Concent 33.4 % 32.6 % Red Cell Distribution Width 13.4 % 13.4 % Platelet Count 212 TH/MM3 153 TH/MM3 Mean Platelet Volume 10.3 FL 10.2 FL Neutrophils (%) (Auto) 60.6 % 76.6 % Lymphocytes (%) (Auto) 29.5 % 13.0 % Monocytes (%) (Auto) 8.2 % 9.8 % Eosinophils (%) (Auto) 1.3 % 0.2 % Basophils (%) (Auto) 0.4 % 0.4 % Neutrophils # (Auto) 6.1 TH/MM3 10.4 TH/MM3 Lymphocytes # (Auto) 3.0 TH/MM3 1.8 TH/MM3 Monocytes # (Auto) 0.8 TH/MM3 1.3 TH/MM3 Eosinophils # (Auto) 0.1 TH/MM3 0.0 TH/MM3 Basophils # (Auto) 0.0 TH/MM3 0.1 TH/MM3 CBC Comment DIFF FINAL AUTO DIFF Differential Comment FINAL DIFF MANUAL Blood Urea Nitrogen 14 MG/DL 21 MG/DL Creatinine 1.11 MG/DL 0.95 MG/DL Random Glucose 157 MG/DL 106 MG/DL Total Protein 7.2 GM/DL Albumin 2.9 GM/DL Calcium Level 8.7 MG/DL 8.7 MG/DL Alkaline Phosphatase 63 U/L Aspartate Amino Transf (AST/SGOT) 17 U/L Alanine Aminotransferase (ALT/SGPT) 14 U/L Total Bilirubin 0.3 MG/DL Sodium Level 141 MEQ/L 137 MEQ/L Potassium Level 4.5 MEQ/L 4.4 MEQ/L Chloride Level 107 MEQ/L 102 MEQ/L Carbon Dioxide Level 22.4 MEQ/L 28.1 MEQ/L Anion Gap 12 MEQ/L 7 MEQ/L Estimat Glomerular Filtration Rate 46 ML/MIN 56 ML/MIN Hemoglobin A1c 5.7 % Troponin I LESS THAN 0.02 NG/ML 25-Hydroxy Vitamin D Total 28.3 ng/ML Urine Color DARK-YELLOW Urine Turbidity CLOUDY Urine pH 5.5 Urine Specific [place] 1.025 Urine Protein 100 mg/dL Urine Glucose (UA) TRACE mg/dL Urine Ketones NEG mg/dL Urine Occult Blood SMALL Urine Nitrite NEG Urine Bilirubin NEG Urine Urobilinogen 2.0 MG/DL Urine Leukocyte Esterase MOD Urine RBC 5 /hpf Urine WBC 6 /hpf Urine WBC Clumps FEW Urine Squamous Epithelial Cells 1 /hpf Urine Calcium Oxalate Crystals OCC /hpf Urine Bacteria MOD /hpf Urine Hyaline Casts 60 /lpf Urine Mucus MOD /lpf Microscopic Urinalysis Comment CULTURE INDICATED Differential Total Cells Counted 100 Neutrophils % (Manual) 68 % Band Neutrophils % 6 % Lymphocytes % 9 % Monocytes % 17 % Neutrophils # (Manual) 10.0 TH/MM3 Toxic Vacuolation PRESENT Platelet Estimate NORMAL Platelet Morphology Comment NORMAL Phosphorus Level 2.7 MG/DL Magnesium Level 1.8 MG/DL Thyroid Stimulating Hormone 3rd Gen 0.698 uIU/ML Test 10/15/17 17:25 10/15/17 23:50 Lactic Acid Level 1.3 mmol/L Urine Color YELLOW Urine Turbidity HAZY Urine pH 5.5 Urine Specific [place] 1.029 Urine Protein 30 mg/dL Urine Glucose (UA) NEG mg/dL Urine Ketones 10 mg/dL Urine Occult Blood SMALL Urine Nitrite NEG Urine Bilirubin NEG Urine Urobilinogen LESS THAN 2.0 MG/DL Urine Leukocyte Esterase LARGE Urine RBC 34 /hpf Urine WBC /hpf Urine Squamous Epithelial Cells 14 /hpf Urine Hyaline Casts 2 /lpf Urine Mucus FEW /lpf Microscopic Urinalysis Comment CULTURE INDICATED Imaging Last Impressions Chest X-Ray 10/15/17 0000 Signed Impressions: Service Date/Time: Sunday, October 15, 2017 11:49 - CONCLUSION: No acute cardiopulmonary abnormality is identified. No abnormality is identified in the right upper lobe. Octavio Warner MD Hip and Pelvis X-Ray 10/14/17 1030 Signed Impressions: Service Date/Time: September 11:15 - CONCLUSION: Status post left hip replacement with prosthesis in good position. Bryson Villa MD Head CT 10/13/17 1521 Signed Impressions: Service Date/Time: Friday, October 13, 2017 16:21 - CONCLUSION: 1. No acute intracranial abnormalities. Shaggy Young MD Cervical Spine CT 10/13/17 1521 Signed Impressions: Service Date/Time: Friday, October 13, 2017 16:21 - CONCLUSION: 1. Moderate degenerative disc disease. No acute findings. Left-sided mastoid air cell disease. Shaggy Young MD Pelvis X-Ray 10/13/17 0000 Signed Impressions: Service Date/Time: Friday, October 13, 2017 15:51 - CONCLUSION: 1. Moderately displaced fracture of the left femoral neck. Jose Bueno MD Femur X-Ray 10/13/17 0000 Signed Impressions: Service Date/Time: Friday, October 13, 2017 15:52 - CONCLUSION: 1. Moderately displaced fracture of the left femoral neck. Jose Bueno MD Objective Remarks GENERAL: Awake and alert oriented times person remains confused but this is probably baseline due to her advanced dementia SKIN: Warm and dry. HEAD: Atraumatic. Normocephalic. EYES: Pupils equal and round. No scleral icterus. No injection or drainage. Extraocular muscles intact ENT: No nasal bleeding or discharge. Mucous membranes pink and moist. Tongue is midline NECK: Trachea midline. No JVD. Supple CARDIOVASCULAR: Regular rate and rhythm. S1-S2 no S3-S4 RESPIRATORY: No accessory muscle use. Clear to auscultation. Breath sounds equal bilaterally. GASTROINTESTINAL: Abdomen soft, non-tender, nondistended. Hepatic and splenic margins not palpable. MUSCULOSKELETAL: Extremities without clubbing, cyanosis, or edema. No obvious deformities. NEUROLOGICAL: Awake and alert. No obvious cranial nerve deficits. Motor grossly within normal limits. 4 out of 5 muscle strength in the arms and legs. Normal speech but confusion. PSYCHIATRIC: INAppropriate mood and affect; insight and judgment ABnormal. Procedures s/p Left hip hemiarthroplasty 10/14/17 Date of Surgery: Oct 14, 2017 Preoperative Diagnosis: Displaced left femoral neck fracture Postoperative Diagnosis: Procedure: Left hip hemiarthroplasty Anesthesia: Gen. Surgeon: Shabbir Escalante Claim Representative(s): CARA Vasquez PA-C The surgical procedure was assisted by my physician plumber assistant. My P.A. presence was necessary throughout this case for the manipulation and positioning of the surgical extremity. My P.A. was assisting me throughout the duration of this procedure. The skill set of a physician plumber assistant was medically necessary to complete this procedure. During the surgical case the surgical technology instructor was working at the back table and the physician plumber assistant was directly assisting me. Operation and Findings: PLAN OF ACTIVITY Weight bear as tolerated. IMPLANTS USED DePuy Corail size [11] stem with size [43] bipolar head and [+5] neck. DETAILS OF PROCEDURE This patient was brought into the operating room and placed on the OR table. The patient was given anesthesia. The patient received IV antibiotics. The patient was then placed in lateral decubitus position. The hip and leg were prepped with alcohol, followed by Hibiclens and draped in a usual sterile fashion. Clean air was used for this procedure. Time out procedure was performed. The procedure began with a 5 inch incision over the posterolateral hip. The subcutaneous tissue was dissected with the Bovie. The iliotibial band were split in line with fibers. The Charnley retractor was placed. The piriformis and external rotators were released from the femur and tagged with a #1 Vicryl suture. The capsule is now incised and tagged with #1 Vicryl. The femoral neck fracture was now visualized. A corkscrew was now used to remove the femoral head. The femoral head was sized and measured. Soft tissue was now protected. The hip skid was placed underneath the femoral neck. An oscillating saw was used to make a femoral neck cut. At this point attention was turned to preparation of the proximal femur. A box osteotome was used to remove the lateral cortex of the femoral neck. The T- handle reamer was used to open the femoral canal. Next, the canal was broached. A lateralizing reamer was used to help lateralize the prosthesis. At this point a trial head and neck were placed. The hip was reduced. The patient was found to have excellent stability with good range of motion. Trial components were removed. Soft tissue and bone were thoroughly irrigated. A Corail stem was now opened. The stem was now impacted into the proximal femur. Care was taken to keep appropriate anteversion. The head and neck were now impacted onto the stem. The hip was again reduced. The hip was found to have good range of motion and good stability. Leg lengths were clinically equal. The wound was thoroughly irrigated. The capsule, piriformis and iliotibial band were closed with #1 Vicryl. Subcutaneous tissue was closed with 3-0 Vicryl. The skin was closed with brian. A sterile dressing was applied with Primapore. The patient was placed into a knee immobilizer. The patient was awakened and transferred to the recovery room in stable condition. Needle and sponge counts were correct. Shabbir Escalante MD Oct 14, 2017 10:35 <Electronically signed by Shabbir Escalante MD> 10/14/17 1035 Medications and IVs Current Medications Sodium Chloride (NS Flush) 2 ml UNSCH PRN IVF FLUSH AFTER USING IV ACCESS Last administered on 10/13/17at 18:22; Start 10/13/17 at 15:30; Stop 10/13/17 at 19:40 ; Status DC Morphine Sulfate (Morphine Inj) 4 mg ONCE ONCE IV PUSH Last administered on at 15:28; Start 10/13/17 at 15:30; Stop 10/13/17 at 15:31; Status DC Morphine Sulfate (Morphine Inj) 4 mg ONCE ONCE IV PUSH Last administered on at 18:22; Start 10/13/17 at 18:15; Stop 10/13/17 at 18:16; Status DC Sodium Chloride (NS Flush) 2 ml UNSCH PRN IV FLUSH FLUSH AFTER USING IV ACCESS ; Start 10/13/17 at 19:00 Sodium Chloride (NS Flush) 2 ml BID IV FLUSH Last administered on 10/16/17at 07: 51; Start 10/13/17 at 21:00 Acetaminophen (Tylenol) 650 mg Q4H PRN PO TEMP > 100.4; Start 10/13/17 at 19:00 Ondansetron HCl (Zofran Inj) 4 mg Q6H PRN IVP NAUSEA OR VOMITING; Start at 19:00 Acetaminophen (Tylenol) 650 mg Q6H PRN PO PAIN SCALE 1 TO 2; Start 10/13/17 at 19:00 Acetaminophen/ Hydrocodone Bitart (Bearden 5-325 Mg) 1 tab Q4H PRN PO PAIN SCALE 3 TO 5; Start 10/13/17 at 19:00; Stop 10/14/17 at 11:58; Status DC Naloxone HCl (Narcan Inj) 0.4 mg UNSCH PRN IV PUSH SEE LABEL COMMENTS; Start at 19:00 Magnesium Hydroxide (Milk Of Magnesia Liq) 30 ml Q12H PRN PO Mild constipation Last administered on 10/15/17at 21:14; Start 10/13/17 at 19:00 Dextrose (D50w (Vial) Inj) 50 ml UNSCH PRN IV PUSH HYPOGLYCEMIA-SEE COMMENTS; Start 10/13/17 at 19:15 Glucagon (Glucagon Inj) 1 mg UNSCH PRN OTHER HYPOGLYCEMIA-SEE COMMENTS; Start 10/13/17 at 19:15 Insulin Aspart (NovoLOG SUPPLEMENTAL SCALE) 1 ACHS SLIDING SCALE SQ ; Start at 21:00 Amlodipine Besylate (Norvasc) 5 mg DAILY PO Last administered on 10/16/17at 07: 50; Start 10/14/17 at 09:00 Divalproex Sodium (Depakote Sprinkles) 125 mg BID PO Last administered on at 07:50; Start 10/13/17 at 21:00 Donepezil HCl (Aricept) 10 mg DAILY PO Last administered on 10/16/17at 07:50; Start 10/14/17 at 09:00 Morphine Sulfate (Morphine Inj) 2 mg Q3H PRN IV PUSH breakthorugh pain or if npo >5 Last administered on 10/14/17at 08:30; Start 10/13/17 at 20:15; Stop 10/14 at 11:58; Status DC Vancomycin HCl (Vancomycin Inj) 1,000 mg STK-MED ONCE .ROUTE Last administered on 10/14/17at 09:45; Start 10/14/17 at 08:03; Stop 10/14/17 at 08:04; Status DC Cefazolin Sodium/ Dextrose 50 ml @ As Directed STK-MED ONCE .ROUTE Last administered on 10/14/17at 09:45; Start 10/14/17 at 08:03; Stop 10/14/17 at 08:04 ; Status DC Gentamicin Sulfate (Gentamicin Inj) 240 mg STK-MED ONCE .ROUTE Last administered on 10/14/17at 10:01; Start 10/14/17 at 08:03; Stop 10/14/17 at 08:04 ; Status DC Sodium Chloride 250 ml @ As Directed STK-MED ONCE .ROUTE Last administered on 10/14/17at 09:40; Start 10/14/17 at 08:03; Stop 10/14/17 at 08:04; Status DC Tranexamic Acid 1245 mg/Sodium Chloride 112.45 ml @ 200 mls/ hr UNSCH IV Last administered on 10/14/17at 10:16; Start 10/14/17 at 08:15; Stop 10/14/17 at 10:15 ; Status DC Cefazolin Sodium/ Dextrose 50 ml @ 100 mls/hr Q6H IV Last administered on 10/15at 04:05; Start 10/14/17 at 16:00; Stop 10/15/17 at 04:29; Status DC Miscellaneous Information (Post-op Orders (for Pharmacy)) STAT ONCE XX ; Start 10/14/17 at 10:30; Stop 10/14/17 at 11:07; Status DC Enoxaparin Sodium (Lovenox Inj) 30 mg Q24H SQ Last administered on 10/16/17at 07 :51; Start 10/15/17 at 10:00 Acetaminophen/ Hydrocodone Bitart (Bearden 5-325 Mg) 1 tab Q3H PRN PO PAIN 3-10 Last administered on 10/16/17at 09:56; Start 10/14/17 at 10:30 Morphine Sulfate (Morphine Inj) 3 mg Q3H PRN IV PUSH break thru pain; Start at 10:30 Ergocalciferol (Drisdol) 50,000 units ONCE ONCE PO ; Start 10/14/17 at 11:15; Stop 10/14/17 at 11:16; Status DC Cholecalciferol (Vitamin D3) 5,000 units DAILY PO Last administered on at 07:51; Start 10/15/17 at 09:00 Acetaminophen 100 ml @ As Directed STK-MED ONCE IV Last administered on at 10:53; Start 10/14/17 at 10:53; Stop 10/14/17 at 10:54; Status DC Ondansetron HCl (*ZOFRAN INJ PERIprocedural ONLY) 4 mg STK-MED ONCE .ROUTE Last administered on 10/14/17at 10:59; Start 10/14/17 at 10:59; Stop 10/14/17 at 11:00; Status DC Meperidine HCl (*DEMEROL INJ PERIprocedural ONLY) 25 mg STK-MED ONCE .ROUTE Last administered on 10/14/17at 11:10; Start 10/14/17 at 11:10; Stop 10/14/17 at 11:11; Status DC Miscellaneous Information ALL NURSING DEPARTME... UNSCH PRN .XX SEE LABEL COMMENTS; Start 10/14/17 at 11:45; Stop 10/15/17 at 11:44; Status DC Senna/Docusate Sodium (Aliyah-Colace) 1 tab BID PO Last administered on at 07:51; Start 10/15/17 at 09:00 Clonidine (Catapres) 0.1 mg Q6H PRN PO SBP>180, DBP>95; Start 10/15/17 at 09:00 Sodium Chloride 500 ml @ 500 mls/hr BOLUS ONCE IV Last administered on at 01:29; Start 10/16/17 at 01:15; Stop 10/16/17 at 02:14; Status DC A/P Problem List: (1) Fracture of femoral neck, left ICD Code: S72.002A - Fracture of unspecified part of neck of left femur, initial encounter for closed fracture Assessment and Plan 87-year-old female with Left femoral neck fracture, s/p mechanical fall s/p Left hip hemiarthroplasty POD#2 Pelvics and femur x-ray noted and review with finding of moderately displaced left femoral neck fracture Orthopedic following, WBAT with posterior hip precautions, begin daily dressing changes tomorrow with Primapore only. Beginning 10/24/2017 begin adding Xeroform with Primapore 2 breakdown skin glue. Knee immobilizer while in bed. F/U with Ortho in 2 weeks. IS at bedside, encourage hourly use while awake Pain management, IV narcotics as needed for pain scale, Bearden p.o. available with bowel regimen Leukocytosis white count up to 13.5 CXR today shows no acute cardiopulmonary process, images reviewed by me. Order IS, encourage hourly use while awake. patient is afebrile. does not appear septic. obtain lactic acid obtain UA repeat CBC in am Positive UTI start on Ceftin Mechanical fall Head CT noted without any intracranial abnormality Cervical spine CT with degenerative disc disease, no acute fracture noted Fall precautions Hypertension, not well controlled Resume home dose of Norvasc Clonidine prn with parameter Continue to monitor BP and adjust treatment accordingly Diabetes type 2 Blood sugars well controlled Accu-Chek before meals at bedtime, sliding scale as needed Hemoglobin A1c 5.7 ?JULISA on CKD Creatinine 1.11, unknown baseline but previous creatinine 1.20 06/18 in the system Avoid nephrotoxic agents Continue to monitor renal indices as indicated - repeat BMP pending Dementia Continue patient on home dose of Aricept Vitamin D deficiency Patient started on 5000 units daily vitamin D, continue Incidental finding of vague nodular density overlying right upper lung field per CXR Recommend outpatient CT of the chest for further evaluation Other chronic medical conditions Stable, resume outpatient medication except aspirin DVT prophylaxis: Lovenox 30mg sq now and Xarelto at discharge Discharge Planning DC to SNF today when bed is available Problem Qualifiers (1) Fracture of femoral neck, left: Qualified Codes: S72.002A - Fracture of unspecified part of neck of left femur , initial encounter for closed fracture Tommy Pham DO Oct 16, 2017 10:57
[2017-10-16] MEDS ORDERED: CEFUROXIME AXETIL 250 MG TAB PO SCH (11:00)
[2017-10-16] MEDS ORDERED: CEFU1TAB18 PO (11:00)
--- NOTE | 2017-10-16 11:04 | HHI.DS ---
Discharge Summary Admission Date Oct 13, 2017 at 18:10 Discharge Date: Oct 16, 2017 Admitting Diagnosis hip fracture (1) Fracture of femoral neck, left ICD Code: S72.002A - Fracture of unspecified part of neck of left femur, initial encounter for closed fracture Diagnosis: Principal (2) Vascular dementia ICD Code: F01.50 - Vascular dementia without behavioral disturbance Diagnosis: Secondary Status: Acute (3) Leukocytosis ICD Code: D72.829 - Elevated white blood cell count, unspecified Diagnosis: Secondary Status: Acute (4) Hypertension ICD Code: I10 - Essential (primary) hypertension Diagnosis: Secondary Status: Acute (5) Fall in elderly patient ICD Code: W19.XXXA - Unspecified fall, initial encounter Diagnosis: Principal Status: Acute Procedures s/p Left hip hemiarthroplasty 10/14/17 Date of Surgery: Oct 14, 2017 Preoperative Diagnosis: Displaced left femoral neck fracture Postoperative Diagnosis: Procedure: Left hip hemiarthroplasty Anesthesia: Gen. Surgeon: Shabbir Escalante Dialysis Biomed Technician(s): CARA Vasquez PA-C The surgical procedure was assisted by my physician music assistant. My P.A. presence was necessary throughout this case for the manipulation and positioning of the surgical extremity. My P.A. was assisting me throughout the duration of this procedure. The skill set of a physician music assistant was medically necessary to complete this procedure. During the surgical case the surgical scheduler was working at the back table and the physician music assistant was directly assisting me. Operation and Findings: PLAN OF ACTIVITY Weight bear as tolerated. IMPLANTS USED DePuy Corail size [11] stem with size [43] bipolar head and [+5] neck. DETAILS OF PROCEDURE This patient was brought into the operating room and placed on the OR table. The patient was given anesthesia. The patient received IV antibiotics. The patient was then placed in lateral decubitus position. The hip and leg were prepped with alcohol, followed by Hibiclens and draped in a usual sterile fashion. Clean air was used for this procedure. Time out procedure was performed. The procedure began with a 5 inch incision over the posterolateral hip. The subcutaneous tissue was dissected with the Bovie. The iliotibial band were split in line with fibers. The Charnley retractor was placed. The piriformis and external rotators were released from the femur and tagged with a #1 Vicryl suture. The capsule is now incised and tagged with #1 Vicryl. The femoral neck fracture was now visualized. A corkscrew was now used to remove the femoral head. The femoral head was sized and measured. Soft tissue was now protected. The hip skid was placed underneath the femoral neck. An oscillating saw was used to make a femoral neck cut. At this point attention was turned to preparation of the proximal femur. A box osteotome was used to remove the lateral cortex of the femoral neck. The T- handle reamer was used to open the femoral canal. Next, the canal was broached. A lateralizing reamer was used to help lateralize the prosthesis. At this point a trial head and neck were placed. The hip was reduced. The patient was found to have excellent stability with good range of motion. Trial components were removed. Soft tissue and bone were thoroughly irrigated. A Corail stem was now opened. The stem was now impacted into the proximal femur. Care was taken to keep appropriate anteversion. The head and neck were now impacted onto the stem. The hip was again reduced. The hip was found to have good range of motion and good stability. Leg lengths were clinically equal. The wound was thoroughly irrigated. The capsule, piriformis and iliotibial band were closed with #1 Vicryl. Subcutaneous tissue was closed with 3-0 Vicryl. The skin was closed with brian. A sterile dressing was applied with Primapore. The patient was placed into a knee immobilizer. The patient was awakened and transferred to the recovery room in stable condition. Needle and sponge counts were correct. Shabbir Escalante MD Oct 14, 2017 10:35 <Electronically signed by Shabbir Escalante MD> 10/14/17 1035 Brief History - From Admission 87-year-old female with a history of dementia, was brought in from a local skilled nursing facility for evaluation of left hip pain following a mechanical fall. Patient does not know how she found herself in a brown however she complained of left hip. This study revealed fractured left femoral neck for which orthopedic surgery was consulted. The exam was limited as patient is a poor historian CBC/BMP: 3/16/18 0427 10/15/17 1142 Significant Findings Laboratory Tests Test 10/13/17 15:31 10/13/17 20:25 10/15/17 04:27 10/15/17 11:42 Monocytes (%) (Auto) 8.2 % (0.0-8.0) 9.8 % (0.0-8.0) Creatinine 1.11 MG/DL (0.50-1.00) Random Glucose 157 MG/DL (74-106) Albumin 2.9 GM/DL (3.4-5.0) Estimat Glomerular Filtration Rate 46 ML/MIN (>89) 56 ML/MIN (>89) Troponin I LESS THAN 0.02 NG/ML 25-Hydroxy Vitamin D Total 28.3 ng/ML (30-100) Urine Color DARK-YELLOW (YELLW/STRAW) Urine Turbidity CLOUDY (CLEAR) Urine Protein 100 mg/dL (NEG-TRACE) Urine Occult Blood SMALL (NEG) Urine Leukocyte Esterase MOD (NEG) Urine RBC 5 /hpf (0-3) Urine WBC 6 /hpf (0-5) Urine WBC Clumps FEW (NONE) Urine Calcium Oxalate Crystals OCC /hpf (NONE) Urine Bacteria MOD /hpf (NONE) Urine Mucus MOD /lpf (OCC) White Blood Count 13.5 TH/MM3 (4.0-11.0) Red Blood Count 3.91 MIL/MM3 (4.00-5.30) Neutrophils (%) (Auto) 76.6 % (16.0-70.0) Neutrophils # (Auto) 10.4 TH/MM3 (1.8-7.7) Monocytes # (Auto) 1.3 TH/MM3 (0-0.9) Monocytes % 17 % (0-8) Neutrophils # (Manual) 10.0 TH/MM3 (1.8-7.7) Toxic Vacuolation PRESENT (NONE SEEN) Blood Urea Nitrogen 21 MG/DL (7-18) Test 10/15/17 17:25 10/15/17 23:50 Urine Turbidity HAZY (CLEAR) Urine Protein 30 mg/dL (NEG-TRACE) Urine Ketones 10 mg/dL (NEG) Urine Occult Blood SMALL (NEG) Urine Leukocyte Esterase LARGE (NEG) Urine RBC 34 /hpf (0-3) Urine Mucus FEW /lpf (OCC) Imaging Last Impressions Chest X-Ray 10/15/17 0000 Signed Impressions: Service Date/Time: Sunday, October 15, 2017 11:49 - CONCLUSION: No acute cardiopulmonary abnormality is identified. No abnormality is identified in the right upper lobe. Octavio Warner MD Hip and Pelvis X-Ray 10/14/17 1030 Signed Impressions: Service Date/Time: September 11:15 - CONCLUSION: Status post left hip replacement with prosthesis in good position. Bryson Villa MD Head CT 10/13/17 1521 Signed Impressions: Service Date/Time: Friday, October 13, 2017 16:21 - CONCLUSION: 1. No acute intracranial abnormalities. Shaggy Young MD Cervical Spine CT 10/13/17 1521 Signed Impressions: Service Date/Time: Friday, October 13, 2017 16:21 - CONCLUSION: 1. Moderate degenerative disc disease. No acute findings. Left-sided mastoid air cell disease. Shaggy Young MD Pelvis X-Ray 10/13/17 0000 Signed Impressions: Service Date/Time: Friday, October 13, 2017 15:51 - CONCLUSION: 1. Moderately displaced fracture of the left femoral neck. Jose Bueno MD Femur X-Ray 10/13/17 0000 Signed Impressions: Service Date/Time: Friday, October 13, 2017 15:52 - CONCLUSION: 1. Moderately displaced fracture of the left femoral neck. Jose Bueno MD PE at Discharge GENERAL: Awake and alert oriented times person remains confused but this is probably baseline due to her advanced dementia SKIN: Warm and dry. HEAD: Atraumatic. Normocephalic. EYES: Pupils equal and round. No scleral icterus. No injection or drainage. Extraocular muscles intact ENT: No nasal bleeding or discharge. Mucous membranes pink and moist. Tongue is midline NECK: Trachea midline. No JVD. Supple CARDIOVASCULAR: Regular rate and rhythm. S1-S2 no S3-S4 RESPIRATORY: No accessory muscle use. Clear to auscultation. Breath sounds equal bilaterally. GASTROINTESTINAL: Abdomen soft, non-tender, nondistended. Hepatic and splenic margins not palpable. MUSCULOSKELETAL: Extremities without clubbing, cyanosis, or edema. No obvious deformities. NEUROLOGICAL: Awake and alert. No obvious cranial nerve deficits. Motor grossly within normal limits. 4 out of 5 muscle strength in the arms and legs. Normal speech but confusion. PSYCHIATRIC: INAppropriate mood and affect; insight and judgment ABnormal. Hospital Course 87-year-old female with a history of dementia, was brought in from a local skilled nursing facility for evaluation of left hip pain following a mechanical fall. Patient does not know how she found herself [place] however she complained of left hip. This study revealed fractured left femoral neck for which orthopedic surgery was consulted. The exam was limited as patient is a poor historian 3-15 Follow-up left hip fracture. Patient seen and examined, sitting up in chair post surgery. Awake and alert, some drowsiness. Family at bedside. Denies any pain. Vital signs are stable. On room air, O2 saturations 96%. We will continue to monitor. Assess food tolerance today. Control nausea. 3-16 Follow-up on patient with left hip fracture, status post bipolar hip replacement. Patient seen and examined. Patient awake and alert. She is confused. Partially oriented to self and place. She is complaining of left hip pain. Denies any fever or chills. Denies any chest pain or shortness of breath. 3-17 [facility] [facility] CAN DC TO SNF TODAY IF BED IS AVAILABLE UTI WILL TREAT AT DC DC TO SNF TODAY 3008 FILLED OUT MOBILE WITH PT CEFTIN 250MG BID 87-year-old female with Left femoral neck fracture, s/p mechanical fall s/p Left hip hemiarthroplasty POD#2 Pelvics and femur x-ray noted and review with finding of moderately displaced left femoral neck fracture Orthopedic following, WBAT with posterior hip precautions, begin daily dressing changes tomorrow with Primapore only. Beginning 10/24/2017 begin adding Xeroform with Primapore 2 breakdown skin glue. Knee immobilizer while in bed. F/U with Ortho in 2 weeks. IS at bedside, encourage hourly use while awake Pain management, IV narcotics as needed for pain scale, [place] p.o. available with bowel regimen Leukocytosis white count up to 13.5 CXR today shows no acute cardiopulmonary process, images reviewed by me. Order IS, encourage hourly use while awake. patient is afebrile. does not appear septic. obtain lactic acid obtain UA repeat CBC in am Positive UTI start on Ceftin Mechanical fall Head CT noted without any intracranial abnormality Cervical spine CT with degenerative disc disease, no acute fracture noted Fall precautions Hypertension, not well controlled Resume home dose of Norvasc Clonidine prn with parameter Continue to monitor BP and adjust treatment accordingly Diabetes type 2 Blood sugars well controlled Accu-Chek before meals at bedtime, sliding scale as needed Hemoglobin A1c 5.7 ?JULISA on CKD Creatinine 1.11, unknown baseline but previous creatinine 1.20 06/18 in the system Avoid nephrotoxic agents Continue to monitor renal indices as indicated - repeat BMP pending Dementia Continue patient on home dose of Aricept Vitamin D deficiency Patient started on 5000 units daily vitamin D, continue Incidental finding of vague nodular density overlying right upper lung field per CXR Recommend outpatient CT of the chest for further evaluation Other chronic medical conditions Stable, resume outpatient medication except aspirin DVT prophylaxis: Lovenox 30mg sq now and Xarelto at discharge Pt Condition on Discharge: Fair Discharge Disposition: Discharge to SNF Discharge Time: > 30 minutes Discharge Instructions DIET: Follow Instructions for: Heart Healthy Diet Speech Therapy-Diet Recommends: Regular Activities you can perform: Weight Bearing as Scott Other Activity Instructions: CONTINUE PT AND OT AT SNF Follow up Referrals: Occupational Therapy Orthopedics - 2 Weeks @ [facility] with Shabbir Escalante MD PCP Follow-up - 2-3 Days Physical Therapy New Medications: Calcium Carbonate-Vitamin D (Calcium 600+D 200) 600-200 Mg-Unit Tab 1 TAB PO BID for Nutritional Supplement, #90 TAB 0 Refills Ergocalciferol (Ergocalciferol) 50,000 Unit Cap 61099 UNITS PO Q7D for Nutritional Supplement, #8 CAP Hydrocodone-Acetaminophen ([place]) 5 Mg-325 Mg Tab 1 TAB PO Q4H PRN for PAIN, #40 TAB 0 Refills Rivaroxaban (Xarelto) 10 Mg Tab 10 MG PO DAILY for Blood Clot Prevention, #40 TAB 0 Refills Walker/Adult/Folding (Walker/Adult/Folding) 1 Mis Mis EA .XX DIRECTED, #1 0 Refills Cefuroxime (Ceftin) 250 Mg Tab 250 MG PO Q12HR for Infection, #20 TAB Continued Medications: Amlodipine (Norvasc) 5 Mg Tab 5 MG PO DAILY for Blood Pressure Management, #30 TAB [address] (Aspirin 81) 81 Mg Tabdr 81 MG PO DAILY, TAB 0 Refills Cholecalciferol (Vitamin D-1000) 1,000 Unit Tab 2000 UNITS PO DAILY for Nutritional Supplement, #1 BOTTLE 0 Refills Divalproex (Depakote ) 125 Mg Tabdr 125 MG PO BID for Control Seizures, #60 TAB 0 Refills Donepezil (Aricept) 23 Mg Tab 10 MG PO DAILY, TAB Do not split, crushed or chewed. Lisinopril (Lisinopril) 20 Mg Tab 20 MG PO DAILY, #30 TAB 0 Refills Mirtazapine (Remeron) 30 Mg Tab 30 MG PO HS for Depression Control, #30 TAB 0 Refills Tommy Pham DO Oct 16, 2017 11:04
[2017-10-16 11:06] VITALS: BP 159/66; PULSE 72; RESP 19; TEMP 97.1; O2SAT 95
== END 2017-10-16 15:30 | DRG 470 ==
LOC: NEPC 14:52 → NEDA 18:10 → NEDH 22:10 → N06A 10-14 15:47 → UNDODISIN 10-16 14:13
PROVIDERS: ADMIT Hospitalist; ATTEND Hospitalist
PROC: 0SRS0JA Replacement of Left Hip Joint, Femoral Surface with Synthetic Substitute, Uncemented, Open Approach (ICD-10-PCS; principal; 2017-10-14 09:26)
DX: S72.002A Fracture of unspecified part of neck of left femur, initial encounter for closed fracture (principal); N17.9 Acute kidney failure, unspecified; E11.22 Type 2 diabetes mellitus with diabetic chronic kidney disease; N39.0 Urinary tract infection, site not specified; F01.50 Vascular dementia, unspecified severity, without behavioral disturbance, psychotic disturbance, mood disturbance, and anxiety; I12.9 Hypertensive chronic kidney disease with stage 1 through stage 4 chronic kidney disease, or unspecified chronic kidney disease; N18.9 Chronic kidney disease, unspecified; E55.9 Vitamin D deficiency, unspecified; E78.5 Hyperlipidemia, unspecified; M81.0 Age-related osteoporosis without current pathological fracture; F32.9 Major depressive disorder, single episode, unspecified; W18.30XA Fall on same level, unspecified, initial encounter; Y92.129 Unspecified place in nursing home as the place of occurrence of the external cause
CPT/HCPCS: 70450; 71045; 72125; 72170; 73502; 73552; 80048; 80053; 81001; 82306; 82948; 83036; 83605; 83735; 84100; 84443; 84484; 85007; 85014; 85018; 85025; 85027; 87086; 93005; 94150; 96374; C1776; J0131; J0690; J1100; J1580; J1650; J2175; J2270; J2370; J2405; J2710; J3370; J7040; J7050; J7120; L1830

== ENCOUNTER 2018-07-23 19:17 | Inpatient (IN) ==
[2018-07-23] MEDS ORDERED: Pantoprazole Inj 40 MG Vial IV.PUSH ONE (19:30)
--- NOTE | 2018-07-23 19:35 | ED ---
HPI General Chief complaint: Nausea/Vomiting/Diarrhea Stated complaint: Abd Pain Time Seen by Provider: 07/23/18 19:30 Source: patient, EMS and old records reviewed Mode of arrival: EMS Limitations: no limitations History of Present Illness HPI narrative: 88-year-old female patient presents to the ER today brought in by EMS from nursing care facility, apparently has been having vomiting for about a week according to staff and then vomiting up coffee grounds emesis today according to staff. Patient is currently complaining of 10 out of 10 epigastric abdominal pain. She has not had any diarrhea. She is not able to give me much further history. Apparently does have some history of dementia. Modifying Factors: None Associated Signs & Symptoms: Epigastric abdominal pain, nausea and vomiting Risk Factors: Elderly Related Data Home Medications Medication Instructions Recorded Confirmed amlodipine [Norvasc] 10 mg PO DAILY 02/24/18 07/23/18 aspirin 81 mg PO DAILY 02/24/18 07/23/18 bisacodyl [Dulcolax (bisacodyl)] 10 mg UT DAILY PRN 02/24/18 07/23/18 calcium carbonate-vitamin D3 1 tab PO BID 02/24/18 07/23/18 [Calcium 600 + D(3)] cholecalciferol (vitamin D3) 1,000 unit PO DAILY 02/24/18 07/23/18 divalproex [Depakote] 125 mg PO BID 02/24/18 07/23/18 docusate sodium [Colace] 100 mg PO BID 02/24/18 07/23/18 donepezil [Aricept] 10 mg PO HS 02/24/18 07/23/18 escitalopram oxalate [Lexapro] 5 mg PO DAILY 02/24/18 07/23/18 hydrocodone-acetaminophen [[place]] 1 tab PO Q4H PRN 02/24/18 07/23/18 lisinopril 20 mg PO DAILY 02/24/18 07/23/18 magnesium citrate [Citroma] 296 ml PO DAILY PRN 02/24/18 07/23/18 magnesium hydroxide [Milk of 30 ml PO HS PRN 02/24/18 07/23/18 Magnesia] mirtazapine [Remeron] 15 mg PO HS 02/24/18 07/23/18 multivitamin with minerals 1 tab PO DAILY 02/24/18 07/23/18 sodium phosphates [Enema 118 ml UT DAILY PRN 02/24/18 07/23/18 Disposable] Allergies Allergy/AdvReac Type Severity Reaction Status Date / Time No Known Allergies Allergy Verified 05/28/18 06:25 Review of Systems ROS Unobtainable ROS Unobtainable: unobtainable due to mental status PMFSH History History Provided By: Medical Record Medical History Medical History Coronary artery disease (Acute) Depression (Acute) HTN (hypertension) (Acute) Hx of constipation (Acute) Hx of insomnia (Acute) Surgical history unknown (Acute) Social History Social History Substance History: Unable to Obtain Second Hand Smoke Exposure: No Smoking Status: Unknown if ever smoked Tobacco Type: Cigarettes How Often Do You Have a Drink Containing Alcohol: Unable to Obtain [facility] within the Last 8 Weeks: No Recent Out of Country Travel within the Last 8 Weeks: No Exam Narrative Exam Narrative: GENERAL: Well-developed elderly female patient currently in moderate distress. Awake and oriented x3. SKIN: Focused skin assessment warm/dry. HEAD: Atraumatic. Normocephalic. EYES: Pupils equal and round. No scleral icterus. No injection or drainage. ENT: No nasal bleeding or discharge. Mucous membranes pink and moist. NECK: Trachea midline. No JVD. CARDIOVASCULAR: Regular rate and rhythm. No murmur appreciated. RESPIRATORY: No accessory muscle use. Clear to auscultation. Breath sounds equal bilaterally. GASTROINTESTINAL: Abdomen soft, mild epigastric tenderness without guarding or rebound, nondistended. Hepatic and splenic margins not palpable. MUSCULOSKELETAL: No obvious deformities. No clubbing. No cyanosis. No edema. NEUROLOGICAL: Awake and alert. No obvious cranial nerve deficits. Motor grossly within normal limits. Normal speech. PSYCHIATRIC: Appropriate mood and affect; insight and judgment normal. Course Initial Documented Vital Signs Pulse Rate 72 07/23/18 19:23 Respiratory Rate 25 H 07/23/18 19:23 Blood Pressure 144/63 H 07/23/18 19:23 Pulse Oximetry 95 07/23/18 19:23 Last Documented Vital Signs Temperature 97.7 F 07/23/18 21:40 Pulse Rate 72 07/23/18 21:40 Respiratory Rate 24 07/23/18 21:40 Blood Pressure 172/73 H 07/23/18 21:40 Pulse Oximetry 100 07/23/18 21:40 Medical Decision Making MDM Narrative Medical decision making narrative: Lab work shows significant leukocytosis and her BUN and creatinine is fairly elevated. IV fluids, pain medications, Zofran and Protonix was given in the ER. CAT scan is showing some mild diverticulitis. She is significantly dehydrated I think, her lactate is elevated 2.6. At this point, IV antibiotics were initiated. Cultures have been done. Planning to admit for further treatment. Case is discussed with Dr. Zarco for admission. Medical Screen Exam Complete: Yes Emergency Medical Condition: Yes Differential Diagnosis Differential Diagnosis: GI bleed versus gastritis versus pancreatitis versus other acute intra-abdominal processes Lab Data Lab results reviewed: Yes I reviewed the patient's lab results. Result diagrams: 07/23/18 20:00 07/23/18 20:00 Lab Results 07/23/18 07/23/18 07/23/18 Range/Units 20:00 20:00 20:00 WBC 18.5 H (4.0-11.0) th/mm3 RBC 5.48 H (4.00-5.30) mil/mm3 Hgb 17.5 H (11.6-15.3) gm/dL Hct 51.8 H (35.0-46.0) % MCV 94.4 (80.0-100.0) fL MCH 31.8 (27.0-34.0) pg MCHC 33.7 (32.0-36.0) % RDW 13.9 (11.6-17.2) % Plt Count 349 (150-450) th/mm3 MPV 10.6 (7.0-11.0) fL Neut % (Auto) 92.7 H (16.0-70.0) % Lymph % (Auto) 4.4 L (9.0-44.0) % [place] % (Auto) 2.8 (0.0-8.0) % Eos % (Auto) 0.0 (0.0-4.0) % Baso % (Auto) 0.1 (0.0-2.0) % Neut # (Auto) 17.2 H (1.8-7.7) th/mm3 Lymph # (Auto) 0.8 L (1.0-4.8) th/mm3 [place] # (Auto) 0.5 (0.0-0.9) th/mm3 Eos # (Auto) 0.0 (0.0-0.4) th/mm3 Baso # (Auto) 0.0 (0.0-0.2) th/mm3 WBC Differential . Differential Comment Auto diff final PT 12.7 H (9.8-11.6) sec INR 1.3 Ratio APTT 28.9 (23.4-31.7) sec Sodium 134 L (136-145) meq/L Potassium 4.7 (3.5-5.1) meq/L Chloride 97 L (98-107) meq/L Carbon Dioxide 17.5 L (21.0-32.0) meq/L Anion Gap 20 H (5-15) meq/L BUN 129 H (7-18) mg/dL Creatinine 3.68 H (0.50-1.00) mg/dL Estimated GFR 12 L (>89) mL/min Random Glucose 197 H (74-106) mg/dL Lactic Acid (0.4-2.0) mmol/L Calcium 9.4 (8.5-10.1) mg/dL Total Bilirubin 0.5 (0.2-1.0) mg/dL AST 36 (15-37) U/L ALT 61 H (10-53) U/L Alkaline Phosphatase 124 H (45-117) U/L Total Protein 9.1 H (6.4-8.2) g/dL Albumin 3.3 L (3.4-5.0) g/dL Blood Type Blood Type Recheck Antibody Screen 07/23/18 07/23/18 Range/Units 20:00 21:00 WBC (4.0-11.0) th/mm3 RBC (4.00-5.30) mil/mm3 Hgb (11.6-15.3) gm/dL Hct (35.0-46.0) % MCV (80.0-100.0) fL MCH (27.0-34.0) pg MCHC (32.0-36.0) % RDW (11.6-17.2) % Plt Count (150-450) th/mm3 MPV (7.0-11.0) fL Neut % (Auto) (16.0-70.0) % Lymph % (Auto) (9.0-44.0) % [place] % (Auto) (0.0-8.0) % Eos % (Auto) (0.0-4.0) % Baso % (Auto) (0.0-2.0) % Neut # (Auto) (1.8-7.7) th/mm3 Lymph # (Auto) (1.0-4.8) th/mm3 [place] # (Auto) (0.0-0.9) th/mm3 Eos # (Auto) (0.0-0.4) th/mm3 Baso # (Auto) (0.0-0.2) th/mm3 WBC Differential Differential Comment PT (9.8-11.6) sec INR Ratio APTT (23.4-31.7) sec Sodium (136-145) meq/L Potassium (3.5-5.1) meq/L Chloride (98-107) meq/L Carbon Dioxide (21.0-32.0) meq/L Anion Gap (5-15) meq/L BUN (7-18) mg/dL Creatinine (0.50-1.00) mg/dL Estimated GFR (>89) mL/min Random Glucose (74-106) mg/dL Lactic Acid 2.6 H (0.4-2.0) mmol/L Calcium (8.5-10.1) mg/dL Total Bilirubin (0.2-1.0) mg/dL AST (15-37) U/L ALT (10-53) U/L Alkaline Phosphatase (45-117) U/L Total Protein (6.4-8.2) g/dL Albumin (3.4-5.0) g/dL Blood Type O Positive Blood Type Recheck Antibody Screen Negative Imaging Data Attestation: I personally reviewed and interpreted this imaging study as follows : Radiologist's impression: Abdomen/Pelvis CT 07/23/18 20:47 CONCLUSION: 1. Diffuse thickening of the wall of the sigmoid colon as well as mild pericolic inflammatory changes are noted suggestive of mild acute diverticulitis. No pericolic abscess is noted. 2. Degenerative changes and scoliosis of the thoracolumbar spine are noted. 3. Multiple chronic compression deformities are noted involving the lumbar spine. Discharge Plan Discharge Disposition Patient Disposition: ED Admit(ED Internal Use Only) Discharge Condition Condition: Stable Discharge Order Discharge Orders: ED Use Only Admit Order (Routine); Ordered 07/23/18 Ordered By: Dena Upton Discharge Details Anticipated Discharge Date: 07/23/18 Diagnosis: Dehydration, Diverticulitis, JULISA (acute kidney injury) Physicians Team ED Provider: Dena Upton Primary Care Provider: UNKNOWN, Attending Provider: Kaitlin Zarco Discharge Interventions Interventions: Vital Signs Last Done: 07/23/18 21:40 Status ED Status: Admitted Patient
[2018-07-23] MEDS ORDERED: Morphine Sulfate Inj 2 MG/ML Vial IV.PUSH ONE (20:04)
[2018-07-23 20:39] LABS: Activated Partial Thrombo Time 28.9 sec (23.4-31.7); INR 1.3 Ratio; Prothrombin Time 12.7 sec (9.8-11.6)
[2018-07-23 20:44] LABS: Albumin 3.3 g/dL (3.4-5.0); Anion Gap 20 meq/L (5-15); Aspartate Aminotransferase 36 U/L (15-37); Blood Urea Nitrogen 129 mg/dL (7-18); Calcium 9.4 mg/dL (8.5-10.1); Carbon Dioxide 17.5 meq/L (21.0-32.0); Chloride 97 meq/L (98-107); Glomerular Filtration Rate 12 mL/min (>89); Glucose,Random 197 mg/dL (74-106); Potassium 4.7 meq/L (3.5-5.1); Sodium 134 meq/L (136-145)
[2018-07-23 20:45] LABS: Alanine Aminotransferase 61 U/L (10-53)
[2018-07-23 20:47] LABS: Alkaline Phosphatase 124 U/L (45-117); Total Protein 9.1 g/dL (6.4-8.2)
[2018-07-23 21:00] LABS: Baso % (Auto) 0.1 % (0.0-2.0); Hematocrit 51.8 % (35.0-46.0); Hemoglobin 17.5 gm/dL (11.6-15.3); Lymph # (Auto) 0.8 th/mm3 (1.0-4.8); Lymph % (Auto) 4.4 % (9.0-44.0); Mean Corpuscular HGB Conc 33.7 % (32.0-36.0); Mean Corpuscular Hemoglobin 31.8 pg (27.0-34.0); Mean Corpuscular Volume 94.4 fL (80.0-100.0); Mean Platelet Volume 10.6 fL (7.0-11.0); Mono # (Auto) 0.5 th/mm3 (0.0-0.9); Mono % (Auto) 2.8 % (0.0-8.0); Neut # (Auto) 17.2 th/mm3 (1.8-7.7); Neut % (Auto) 92.7 % (16.0-70.0); Platelet Count 349 th/mm3 (150-450); Red Blood Count 5.48 mil/mm3 (4.00-5.30); Red Cell Distribution Width 13.9 % (11.6-17.2); White Blood Count 18.5 th/mm3 (4.0-11.0)
[2018-07-23] MEDS ORDERED: Sodium Chlor 0.9% Inj 500 ML IV.SIG SCH (21:00)
--- NOTE | 2018-07-23 21:34 | CT ---
EXAM DATE: 07/23/2018 9:26 PM EST AGE/SEX: 88 years / Female INDICATIONS: Epigastric pain with vomiting past week. CLINICAL DATA: This is the patient's initial encounter. Patient reports that signs and symptoms have been present for 1 day and indicates a pain score of Nonresponsive. MEDICAL/SURGICAL HISTORY: Non-responsive. . Left hip replacement RADIATION DOSE: 7.04 CTDI (mGy) COMPARISON: [facility], CT ABDOMEN & PELVIS W CONTRAST, 05/01/2011. . TECHNIQUE: Multiple contiguous axial images were obtained through the abdomen. Images were obtained using multiple row detector helical technique. Using automated exposure control and adjustment of the mA and/or kV according to patient size, radiation dose was kept as low as reasonably achievable to o btain optimal diagnostic quality images. DICOM format image data is available electronically for rev iew and comparison. FINDINGS: Lower Lungs: The visualized lower lungs are clear. Liver: The liver has a homogeneous density without space-occupying lesion. There is no dilation of th e biliary tree. Spleen: Homogeneous density without enlargement. Pancreas: Unremarkable without mass or calcification. Kidneys: Normal in size and shape. No evidence of mass or hydronephrosis. Multiple vascular calcific ations are noted bilaterally. Adrenal Glands: Unremarkable. Aorta: The aorta and proximal iliac vessels are grossly unremarkable without aneurysmal dilation. Bowel/Mesentery: Diffuse thickening of the wall of the sigmoid colon as well as mild pericolic infla mmatory changes are noted suggestive of mild acute diverticulitis. No pericolic abscess is noted. The appendix is normal. Abdominal Wall: Intact. Retroperitoneum: No evidence of adenopathy in the retrocrural, para-aortic, or deep pelvic regions. Bladder: Contours are smooth. Reproductive Organs: No abnormal masses or calcifications seen. Inguinal: The inguinal region is unremarkable without evidence of adenopathy. Bony Structures: Degenerative changes and scoliosis of the thoracolumbar spine are noted. Multiple c hronic compression deformities are noted involving the lumbar spine. Left hip prosthesis is noted. CONCLUSION: 1. Diffuse thickening of the wall of the sigmoid colon as well as mild pericolic inflammatory change s are noted suggestive of mild acute diverticulitis. No pericolic abscess is noted. 2. Degenerative changes and scoliosis of the thoracolumbar spine are noted. 3. Multiple chronic compression deformities are noted involving the lumbar spine. Electronically signed by: Bryson Villa MD Board Certified Radiologist 07/23/2018 9:33 PM EST
[2018-07-23] MEDS ORDERED: Piperacil/Tazo 4.5 GM Premix 4.5 GM/100 ML BAG IV.SIG STA (21:50)
[2018-07-23] MEDS ORDERED: Acetaminophen 325 MG Tablet PO PRN (23:54)
--- NOTE | 2018-07-24 00:29 | P.HP ---
History of Present Illness Service: [facility] Primary Care Physician: UNKNOWN History of Present Illness: 88-year-old female with a past medical history significant for coronary artery disease, diabetes mellitus, anxiety/depression, hypertension and chronic kidney disease stage II presents to the emergency department from her snf facility for the evaluation of abdominal pain and coffee-ground emesis. According to the patient, who is a poor historian, her abdominal pain started today. Per paramedics report, coffee-ground emesis was visualized on their arrival to the patient's snf facility. The patient denies any other pain. She denies fever/chills. No chest pain or shortness of breath. No focal neurologic deficits. Review of systems limited by patient's mental status. Inpatient Certification: I certify that the inpatient services were ordered in accordance with Medicare regulations governing the order. This includes certification that hospital inpatient services are reasonable and necessary and in the case of services not specified as inpatient-only under 42 CFR 419.22(n), that they are appropriately provided as inpatient services in accordance to with the 2-midnight benchmark under 43 CFR 412.3(e) Estimated Total Length of Stay (Days): 2 Plans for Post Hospital Care: Home Review of Systems All other systems reviewed negative except as stated in HPI PMFSH - History History Provided By: Medical Record - Medical History Medical History: Medical History (Last Updated 07/24/18 @ 00:19 by Kaitlin Zarco MD) Chronic kidney disease Coronary artery disease Depression HTN (hypertension) Hx of constipation Hx of insomnia Surgical history unknown - Surgical History Surgical History: Surgical History (Last Updated 07/24/18 @ 00:19 by Kaitlin Zarco MD) No history of previous surgery - Family History Family History: Family History (Last Updated 07/24/18 @ 00:19 by Kaitlin Zarco MD) Other Family history normal - Social History I have reviewed the patient's Social History: Yes - Tobacco History Second Hand Smoke Exposure: No Smoking Status: Unknown if ever smoked Tobacco Type: Cigarettes - Alcohol History How Often Do You Have a Drink Containing Alcohol: Unable to Obtain - Substance Use History Substance History: Unable to Obtain - Travel History Recent Travel in the [place] Within the Last 8 Weeks: No Recent Travel Out of the Country Within the Last 8 Weeks: No - Immunization History Tetanus Immunization: Unsure Medications and Allergies Active Medications: Active Medications Acetaminophen (Tylenol) 650 mg PO Q4H PRN PRN Reason: Temp > 100.4 Metronidazole/Sodium Chloride (Flagyl 500 Mg Inj) 100 mls @ 100 mls/hr IV.SIG Q8H STEVEN Ceftriaxone Sodium 1,000 mg/ (Sodium Chloride) 100 mls @ 200 mls/hr IV.SIG Q24H STEVEN Sodium Chloride (Ns Inj) 1,000 mls @ 100 mls/hr IV.CONT .Q10H STEVEN Morphine Sulfate (Morphine Inj) 2 mg IV.PUSH Q3H PRN PRN Reason: PAIN SCALE 1 TO 10 Ondansetron HCl (Zofran Inj) 4 mg IV.PUSH Q6H PRN PRN Reason: NAUSEA OR VOMITING Pantoprazole Sodium (Protonix Inj) 40 mg IV.PUSH Q12H STEVEN Sodium Chloride (Ns Flush) 2 ml IV.FLUSH PRN PRN PRN Reason: FLUSH AFTER USING IV ACCESS Sodium Chloride (Ns Flush) 2 ml IV.FLUSH BID STEVEN Sodium Chloride (Ns Flush) 2 ml IV.FLUSH PRN PRN PRN Reason: FLUSH AFTER USING IV ACCESS Allergies Allergy/AdvReac Type Severity Reaction Status Date / Time No Known Allergies Allergy Verified 05/28/18 06:25 Home Medications Medication Instructions Recorded Confirmed Type amlodipine [Norvasc] 10 mg PO DAILY 02/24/18 07/23/18 History aspirin 81 mg PO DAILY 02/24/18 07/23/18 History bisacodyl [Dulcolax (bisacodyl)] 10 mg DE DAILY PRN 02/24/18 07/23/18 History calcium carbonate-vitamin D3 1 tab PO BID 02/24/18 07/23/18 History [Calcium 600 + D(3)] cholecalciferol (vitamin D3) 1,000 unit PO DAILY 02/24/18 07/23/18 History divalproex [Depakote] 125 mg PO BID 02/24/18 07/23/18 History docusate sodium [Colace] 100 mg PO BID 02/24/18 07/23/18 History donepezil [Aricept] 10 mg PO HS 02/24/18 07/23/18 History escitalopram oxalate [Lexapro] 5 mg PO DAILY 02/24/18 07/23/18 History hydrocodone-acetaminophen [[place]] 1 tab PO Q4H PRN 02/24/18 07/23/18 History lisinopril 20 mg PO DAILY 02/24/18 07/23/18 History magnesium citrate [Citroma] 296 ml PO DAILY PRN 02/24/18 07/23/18 History magnesium hydroxide [Milk of 30 ml PO HS PRN 02/24/18 07/23/18 History Magnesia] mirtazapine [Remeron] 15 mg PO HS 02/24/18 07/23/18 History multivitamin with minerals 1 tab PO DAILY 02/24/18 07/23/18 History sodium phosphates [Enema 118 ml DE DAILY PRN 02/24/18 07/23/18 History Disposable] Exam Vital signs: Vital Signs 07/23/18 19:23 07/23/18 19:31 07/23/18 20:25 Temperature Pulse Rate 72 75 Respiratory Rate 25 H 26 H Blood Pressure 144/63 H 171/72 H Pulse Oximetry 95 95 98 07/23/18 21:14 07/23/18 21:40 07/23/18 23:23 Temperature 97.7 F Pulse Rate 72 72 98 H Respiratory Rate 24 24 20 Blood Pressure 182/78 H 172/73 H 174/73 H Pulse Oximetry 99 100 99 Intake & Output 07/23/18 07/23/18 07/24/18 06:59 18:59 06:59 Intake Total 700 / 700 Balance 700 / 700 Weight 63.503 kg Intake: IV 700 / 700 Zosyn 4.5 GM Premix 4.5 gm In 100 / 100 100 ml @ 200 mls/hr IV.SIG STAT STA Rx#:[id number] NS Inj 500 ML @ 1000 mls/hr IV. 500 / 500 SIG BOLUS STEVEN Rx#:[id number] Flagyl 500 MG Inj 100 ML @ 100 100 / 100 mls/hr IV.SIG STAT STA Rx#: [id number] Narrative: Gen.: No acute distress Head: Normocephalic. Atraumatic. EENT: Pupils equal round and reactive to light. Nose without drainage. Airway intact. Throat without injection. Cardiovascular: Regular rate and rhythm. No murmurs, rubs or gallops. Respiratory: Lungs clear to auscultation bilaterally. No wheezes or rhonchi. Abdomen: Soft, tender to palpation in the left upper quadrant, nondistended. No peritoneal signs. Musculoskeletal: No gross deformities. No edema. Skin: No obvious rashes or erythema. Neuro: Sensory and motor grossly intact. Cranial nerves II through XII grossly intact. Results - Labs CBC & Chem 7: 07/23/18 20:00 07/23/18 20:00 Labs: Laboratory Results - last 24 hr 07/23/18 07/23/18 07/23/18 20:00 20:00 20:00 WBC 18.5 H RBC 5.48 H Hgb 17.5 H Hct 51.8 H MCV 94.4 MCH 31.8 MCHC 33.7 RDW 13.9 Plt Count 349 MPV 10.6 Neut % (Auto) 92.7 H Lymph % (Auto) 4.4 L [place] % (Auto) 2.8 Eos % (Auto) 0.0 Baso % (Auto) 0.1 Neut # (Auto) 17.2 H Lymph # (Auto) 0.8 L [place] # (Auto) 0.5 Eos # (Auto) 0.0 Baso # (Auto) 0.0 WBC Differential . Differential Comment Auto diff final PT 12.7 H INR 1.3 APTT 28.9 Sodium 134 L Potassium 4.7 Chloride 97 L Carbon Dioxide 17.5 L Anion Gap 20 H BUN 129 H Creatinine 3.68 H Estimated GFR 12 L Random Glucose 197 H Lactic Acid Calcium 9.4 Total Bilirubin 0.5 AST 36 ALT 61 H Alkaline Phosphatase 124 H Total Protein 9.1 H Albumin 3.3 L Blood Type Blood Type Recheck Antibody Screen 07/23/18 07/23/18 07/23/18 20:00 21:00 23:28 WBC RBC Hgb Hct MCV MCH MCHC RDW Plt Count MPV Neut % (Auto) Lymph % (Auto) [place] % (Auto) Eos % (Auto) Baso % (Auto) Neut # (Auto) Lymph # (Auto) [place] # (Auto) Eos # (Auto) Baso # (Auto) WBC Differential Differential Comment PT INR APTT Sodium Potassium Chloride Carbon Dioxide Anion Gap BUN Creatinine Estimated GFR Random Glucose Lactic Acid 2.6 H 1.4 Calcium Total Bilirubin AST ALT Alkaline Phosphatase Total Protein Albumin Blood Type O Positive Blood Type Recheck Antibody Screen Negative - Imaging Impressions Abdomen/Pelvis CT 07/23/18 20:47 CONCLUSION: 1. Diffuse thickening of the wall of the sigmoid colon as well as mild pericolic inflammatory changes are noted suggestive of mild acute diverticulitis. No pericolic abscess is noted. 2. Degenerative changes and scoliosis of the thoracolumbar spine are noted. 3. Multiple chronic compression deformities are noted involving the lumbar spine. Caprini VTE Risk Assessment Caprini VTE Risk Assessment: Moderate/High Risk (score >= 2) Caprini Risk Assessment Model: Point Value = 1 Point Value = 2 Point Value = 3 Point Value = 5 Age 41-60 Minor surgery BMI > 25 kg/m2 Swollen legs Varicose veins or History of unexplained or recurrent spontaneous Oral contraceptives or hormone replacement Sepsis (< 1 month) Serious lung disease, including pneumonia (< 1 month) Abnormal pulmonary function Acute myocardial infarction Congestive heart failure (< 1 month) History of inflammatory bowel disease Medical patient at bed rest Age 61-74 Arthroscopic surgery Major open surgery (> 45 min) Laparoscopic surgery (> 45 min) Malignancy Confined to bed (> 72 hours) Immobilizing plaster cast Central venous access Age >= 75 History of VTE Family history of VTE Factor V Leiden Prothrombin [id number] Lupus anticoagulant Anticardiolipin antibodies Elevated serum homocysteine Heparin-induced thrombocytopenia Other congenital or acquired thrombophilia Stroke (< 1 month) Elective arthroplasty Hip, pelvis, or leg fracture Acute spinal cord injury (< 1 month) Prophylaxis Regimen: Total Risk Factor Score Risk Level Prophylaxis Regimen 0-1 Low Early ambulation 2 Moderate Order ONE of the following: *Sequential Compression Device (SCD) *Heparin 5000 units SQ BID 3-4 Higher Order ONE of the following medications: *Heparin 5000 units SQ TID *Enoxaparin/Lovenox 40 mg SQ daily (WT < 150 kg, CrCl > 30 mL/min) *Enoxaparin/Lovenox 30 mg SQ daily (WT < 150 kg, CrCl > 10-29 mL/min) *Enoxaparin/Lovenox 30 mg SQ BID (WT < 150 kg, CrCl > 30 mL/min) AND/OR *Sequential Compression Device (SCD) 5 or more Highest Order ONE of the following medications: *Heparin 5000 units SQ TID (Preferred with Epidurals) *Enoxaparin/Lovenox 40 mg SQ daily (WT < 150 kg, CrCl > 30 mL/min) *Enoxaparin/Lovenox 30 mg SQ daily (WT < 150 kg, CrCl > 10-29 mL/min) *Enoxaparin/Lovenox 30 mg SQ BID (WT < 150 kg, CrCl > 30 mL/min) AND *Sequential Compression Device (SCD) Assessment and Plan - Plan Assessment/plan: 1. Acute diverticulitis/sepsis/abdominal pain She with leukocytosis, elevated lactic acid CT of the abdomen/pelvis significant for mild acute diverticulitis Cipro/Flagyl Blood cultures pending 2. ? GIB Paramedics report coffee-ground emesis on scene, patient has not vomited since her arrival to the emergency department H&H 17.5/51.8 Every 6 hours H&H times 24 hours for possible upper GI bleed IV Protonix Monitor If repeat episode, will consult gastroenterology 3. Acute kidney injury BUN/creatinine 129/3.68, baseline creatinine 1.0 Secondary to dehydration IV fluid hydration Renal ultrasound pending IV fluid hydration Monitor renal function, if does not improve consult nephrology 4. Hypertension Continue home amlodipine Holding home lisinopril secondary to acute kidney injury 5. Dementia/depression Continue home Aricept, Depakote, Remeron FEN Clear liquid diet Electrolytes: Monitor and replete as needed NS at 100 cc/hour
[2018-07-24] MEDS: Sod Chloride 0.9% Inj 1,000 ML IV.CONT SCH ×4 (00:38→21:05)
[2018-07-24] MEDS: Morphine Sulfate Inj 2 MG/ML Vial IV.PUSH PRN ×2 (00:46→03:44)
[2018-07-24 02:23] LABS: Hematocrit 47.6 % (35.0-46.0); Hemoglobin 16.3 gm/dL (11.6-15.3); Lymph # (Auto) 0.9 th/mm3 (1.0-4.8); Lymph % (Auto) 5.4 % (9.0-44.0); Mean Corpuscular HGB Conc 34.3 % (32.0-36.0); Mean Corpuscular Hemoglobin 32.5 pg (27.0-34.0); Mean Corpuscular Volume 94.9 fL (80.0-100.0); Mean Platelet Volume 9.5 fL (7.0-11.0); Mono # (Auto) 1.1 th/mm3 (0.0-0.9); Mono % (Auto) 6.4 % (0.0-8.0); Neut # (Auto) 15.3 th/mm3 (1.8-7.7); Neut % (Auto) 88.2 % (16.0-70.0); Platelet Count 270 th/mm3 (150-450); Red Blood Count 5.02 mil/mm3 (4.00-5.30); Red Cell Distribution Width 13.6 % (11.6-17.2); White Blood Count 17.3 th/mm3 (4.0-11.0)
[2018-07-24 02:36] LABS: Calcium 8.7 mg/dL (8.5-10.1); Carbon Dioxide 17.8 meq/L (21.0-32.0); Potassium 4.1 meq/L (3.5-5.1)
[2018-07-24] MEDS: Pantoprazole Inj 40 MG Vial IV.PUSH SCH ×3 (06:14→18:32)
[2018-07-24] MEDS: Ciprofloxacin 400 MG/200 ML 400 MG/200 ML PIGGYBACK IV.SIG SCH (06:14)
[2018-07-24] MEDS ORDERED: Lisinopril 20 MG Tablet PO SCH (09:00)
[2018-07-24] MEDS: amLODIPine 10 MG Tablet PO SCH (09:36)
[2018-07-24] MEDS: Escitalopram 10 MG Tablet PO SCH (09:36)
[2018-07-24] MEDS: Calcium/Vitamin D 250/125 MG Tablet PO SCH ×2 (09:36→21:03)
[2018-07-24] MEDS: Divalproex 125 MG DR Tablet PO SCH ×2 (09:37→21:03)
--- NOTE | 2018-07-24 10:56 | US ---
EXAM DATE: 07/24/2018 10:52 AM EST AGE/SEX: 88 years / Female INDICATIONS: Increased BUN and Creatinine. CLINICAL DATA: This is the patient's initial encounter. Patient reports that signs and symptoms have been present for 1 day and indicates a pain score of 0/10. MEDICAL/SURGICAL HISTORY: Chronic renal failure. Hypertension. Cardiovascular disease. Diabe lion. None. COMPARISON: [facility] [place] & [place]EL[place]/O CONTRAST, 07/23/2018. . MEASUREMENTS: Right Kidney:__9.1 x 3.6 x 4.7 cm Left Kidney:__8.8 x 3.1 x 4.5 cm FINDINGS: Right Kidney: Increased echogenicity. No mass or hydronephrosis. Left Kidney: Increased echogenicity. No mass or hydronephrosis. Bladder: Within normal limits given the degree of distension. Other: None. CONCLUSION: Mild increased echogenicity to the kidneys which can be seen with medical renal disease. No hydroneph rosis is seen. Electronically signed by: Octavio Richards MD Board Certified Radiologist 07/24/2018 10:54 AM EST
[2018-07-24 16:12] LABS: Hematocrit 42.6 % (35.0-46.0); Hemoglobin 14.4 gm/dL (11.6-15.3)
--- NOTE | 2018-07-24 16:25 | P.PN ---
Subjective Interval history: Follow-up visit for abdominal pain, possible GI bleed, new onset of A. fib. Patient is seen and examined resting in bed with eyes closed, easily awakens to voice. She is oriented to self and denies any pain or discomfort however facial grimacing with palpation to lower abdominal quadrants. Denies any nausea , vomiting, cough, shortness of breath, chest pain or dizziness. Nurse reports urinary retention, needing to straight cath. Physical Exam Vital signs: Vital Signs 07/23/18 19:23 07/23/18 19:31 07/23/18 20:25 Temperature Pulse Rate 72 75 Respiratory Rate 25 H 26 H Blood Pressure 144/63 H 171/72 H Pulse Oximetry 95 95 98 07/23/18 21:14 07/23/18 21:40 07/23/18 23:23 Temperature 97.7 F Pulse Rate 72 72 98 H Respiratory Rate 24 24 20 Blood Pressure 182/78 H 172/73 H 174/73 H Pulse Oximetry 99 100 99 07/24/18 00:45 07/24/18 01:04 07/24/18 01:51 Temperature Pulse Rate 93 H 94 H 103 H Respiratory Rate 18 23 19 Blood Pressure 181/77 H 141/56 H 147/63 H Pulse Oximetry 99 98 100 07/24/18 01:59 07/24/18 03:30 07/24/18 03:47 Temperature 97.4 F L Pulse Rate 60 91 H 96 H Respiratory Rate 12 18 Blood Pressure 124/51 L 127/54 L Pulse Oximetry 100 97 07/24/18 03:59 07/24/18 05:45 07/24/18 08:00 Temperature 96.0 F L Pulse Rate 70 73 Respiratory Rate 18 16 Blood Pressure 136/63 Pulse Oximetry 97 07/24/18 09:00 07/24/18 12:00 07/24/18 14:11 Temperature 95.7 F L Pulse Rate 74 67 Respiratory Rate 17 16 Blood Pressure 144/57 H Pulse Oximetry 95 Intake & Output 07/23/18 07/24/18 07/24/18 18:59 06:59 18:59 Intake Total 1000 / 1000 1200 / 1200 Output Total 600 / 600 Balance 1000 / 1000 600 / 600 Weight 56.3 kg Intake: IV 700 / 700 1200 / 1200 NS Inj 1,000 ML @ 100 mls/hr IV 1000 / 1000 .CONT .Q10H STEVEN Rx#:[id number] Cipro 400 MG/200 ML Inj 400 mg 200 / 200 In 200 ml @ 200 mls/hr IV.SIG Q24H STEVEN Rx#:[id number] Zosyn 4.5 GM Premix 4.5 gm In 100 / 100 100 ml @ 200 mls/hr IV.SIG STAT STA Rx#:[id number] NS Inj 500 ML @ 1000 mls/hr IV. 500 / 500 SIG BOLUS STEVEN Rx#:[id number] Flagyl 500 MG Inj 100 ML @ 100 100 / 100 mls/hr IV.SIG STAT STA Rx#: [id number] Oral 300 / 300 Output: Urine Amount (Catheter) 600 / 600 Straight 600 / 600 Other: # Incontinent Voids 1 # Incontinent Bowel Movements 1 Weight On Admission 56.3 kg Narrative: GENERAL: Well-developed, well-nourished elderly female resting in bed in no acute distress. SKIN: Warm and dry. HEAD: Atraumatic. Normocephalic. EYES: Pupils equal/round. No scleral icterus. No injection or drainage. ENT: No nasal bleeding or discharge. Mucous membranes pink and moist. NECK: Trachea midline. CARDIOVASCULAR: Regular rate and rhythm. RESPIRATORY: No accessory muscle use. Clear to auscultation. Breath sounds equal bilaterally. GASTROINTESTINAL: Abdomen soft, nondistended, + tenderness to lower abdominal quadrants. + Bowel sounds MUSCULOSKELETAL: Extremities without clubbing, cyanosis, or edema. No obvious deformities. NEUROLOGICAL: Awakens easily to voice, oriented to self. No obvious cranial nerve deficits. Motor grossly within normal limits. 4/5 muscle strength in the arms and legs. Normal speech. PSYCHIATRIC: Poor insight and judgment, poor historian. - Urinary Catheter Management Straight Cath placed during this visit: yes, but has since been removed by the nurse Reason for continuing: Decision to DC catheter Insertion date: 07/24/18 Insertion time: 10:15 Removal date: 07/24/18 Removal time: 10:19 Results - Labs CBC & Chem 7: 07/24/18 14:55 07/24/18 02:07 Laboratory Results - last 24 hr 07/23/18 07/23/18 07/23/18 20:00 20:00 20:00 WBC 18.5 H RBC 5.48 H Hgb 17.5 H Hct 51.8 H MCV 94.4 MCH 31.8 MCHC 33.7 RDW 13.9 Plt Count 349 MPV 10.6 Neut % (Auto) 92.7 H Lymph % (Auto) 4.4 L [place] % (Auto) 2.8 Eos % (Auto) 0.0 Baso % (Auto) 0.1 Neut # (Auto) 17.2 H Lymph # (Auto) 0.8 L [place] # (Auto) 0.5 Eos # (Auto) 0.0 Baso # (Auto) 0.0 WBC Differential . Differential Comment Auto diff final PT 12.7 H INR 1.3 APTT 28.9 Sodium 134 L Potassium 4.7 Chloride 97 L Carbon Dioxide 17.5 L Anion Gap 20 H BUN 129 H Creatinine 3.68 H Estimated GFR 12 L POC Glucose Random Glucose 197 H Lactic Acid Calcium 9.4 Total Bilirubin 0.5 AST 36 ALT 61 H Alkaline Phosphatase 124 H Total Protein 9.1 H Albumin 3.3 L Blood Type Blood Type Recheck Antibody Screen 07/23/18 07/23/18 07/23/18 20:00 21:00 23:28 WBC RBC Hgb Hct MCV MCH MCHC RDW Plt Count MPV Neut % (Auto) Lymph % (Auto) [place] % (Auto) Eos % (Auto) Baso % (Auto) Neut # (Auto) Lymph # (Auto) [place] # (Auto) Eos # (Auto) Baso # (Auto) WBC Differential Differential Comment PT INR APTT Sodium Potassium Chloride Carbon Dioxide Anion Gap BUN Creatinine Estimated GFR POC Glucose Random Glucose Lactic Acid 2.6 H 1.4 Calcium Total Bilirubin AST ALT Alkaline Phosphatase Total Protein Albumin Blood Type O Positive Blood Type Recheck Antibody Screen Negative 07/24/18 07/24/18 07/24/18 02:07 02:07 04:38 WBC 17.3 H RBC 5.02 Hgb 16.3 H Hct 47.6 H MCV 94.9 MCH 32.5 MCHC 34.3 RDW 13.6 Plt Count 270 MPV 9.5 Neut % (Auto) 88.2 H Lymph % (Auto) 5.4 L [place] % (Auto) 6.4 Eos % (Auto) 0.0 Baso % (Auto) 0.0 Neut # (Auto) 15.3 H Lymph # (Auto) 0.9 L [place] # (Auto) 1.1 H Eos # (Auto) 0.0 Baso # (Auto) 0.0 WBC Differential . Differential Comment Auto diff final PT INR APTT Sodium 136 Potassium 4.1 Chloride 105 D Carbon Dioxide 17.8 L Anion Gap 13 BUN 123 H Creatinine 3.31 H Estimated GFR 13 L POC Glucose 109 Random Glucose 152 H Lactic Acid Calcium 8.7 Total Bilirubin AST ALT Alkaline Phosphatase Total Protein Albumin Blood Type Blood Type Recheck Antibody Screen 07/24/18 14:55 WBC RBC Hgb 14.4 Hct 42.6 MCV MCH MCHC RDW Plt Count MPV Neut % (Auto) Lymph % (Auto) [place] % (Auto) Eos % (Auto) Baso % (Auto) Neut # (Auto) Lymph # (Auto) [place] # (Auto) Eos # (Auto) Baso # (Auto) WBC Differential Differential Comment PT INR APTT Sodium Potassium Chloride Carbon Dioxide Anion Gap BUN Creatinine Estimated GFR POC Glucose Random Glucose Lactic Acid Calcium Total Bilirubin AST ALT Alkaline Phosphatase Total Protein Albumin Blood Type Blood Type Recheck Antibody Screen Microbiology 07/23/18 22:55 Blood - Peripheral Aerobic Blood Culture - Preliminary No growth in 1 day 07/23/18 22:55 Blood - Peripheral Anaerobic Blood Culture - Preliminary No growth in 1 day 07/23/18 23:00 Blood - Peripheral Aerobic Blood Culture - Preliminary No growth in 1 day 07/23/18 23:00 Blood - Peripheral Anaerobic Blood Culture - Preliminary No growth in 1 day - Imaging Impressions Abdomen/Pelvis CT 07/23/18 20:47 CONCLUSION: 1. Diffuse thickening of the wall of the sigmoid colon as well as mild pericolic inflammatory changes are noted suggestive of mild acute diverticulitis. No pericolic abscess is noted. 2. Degenerative changes and scoliosis of the thoracolumbar spine are noted. 3. Multiple chronic compression deformities are noted involving the lumbar spine. Abdomen/Bladder Ultrasound 07/24/18 00:00 CONCLUSION: Mild increased echogenicity to the kidneys which can be seen with medical renal disease. No hydronephrosis is seen. Assessment and Plan - Plan 88-year-old female with past medical history significant for CAD, CKD stage II, HTN, diabetes mellitus, and dementia who presented from long term facility due to abdominal pain and coffee-ground emesis. Acute diverticulitis Sepsis (WBC 18.5, lactic acid 2.6, suspected source diverticulitis) -CT abdomen/pelvis with diffuse thickening of the wall of the sigmoid colon as well as mild pericolonic inflammatory changes noted suggestive of mild acute diverticulitis. No pericolonic abscess noted, degenerative changes and scoliosis. Multiple chronic compression deformities involving lumbar spine. -Continue IV Cipro and Flagyl, blood cultures pending -WBC count improved slightly, afebrile New onset of A. fib -EKG with heart rate 99, reported A. fib, possible a flutter -Status post IV Cardizem, sinus rhythm on telemetry -Pending echo -Cardiology consulted greatly appreciate assistance. -No anticoagulation secondary to suspected GI bleed, follow cards recommendations. Coffee-ground emesis Possible GI bleed -intermediate facility reported coffee-ground emesis -No emesis since admission, H&H remained stable -Continue IV Protonix, transition to p.o. tomorrow -Continue monitoring for bleeding Acute on chronic kidney disease stage II On admission BUN 129, creatinine 3.68, baseline creatinine 1.0 -Likely secondary to dehydration, renal function slightly improved today, continue IV fluids -Renal ultrasound with mild increased echogenicity in kidneys which could be seen in medical renal disease, no hydronephrosis. -Continue hydration and monitoring renal function -Hold ROJAS inhibitor, avoid nephrotoxins. Hypertension, chronic -Continue to hold ROJAS inhibitor due to JULISA -Continue home dose Norvasc Dementia/depression -Continue home dose Aricept, Depakote and Remeron DVT prophylaxis-SCDs, avoid chemical anticoagulation secondary to suspected GI bleed Discussed Condition With: Patient, RN, Dr. Cruz.
--- NOTE | 2018-07-24 17:37 | MB ---
cc: Marcio Cruz DO DATE: 07/24/2018 REASON FOR CONSULTATION: Atrial fibrillation. HISTORY OF PRESENT ILLNESS: Anusha Blood is an 88-year-old female who appears to be pleasantly demented and presented due to coffee-grounds emesis from her shelter facility. The patient is a poor historian and unable to answer many questions and so the history is taken from the chart. Apparently, she had some abdominal pain and coffee-grounds emesis. While being worked up, it appears that she had an episode of atrial fibrillation with rapid ventricular response. EKG was done, which showed atrial fibrillation. She is currently back in sinus rhythm and occasionally having PACs. She was given one dose of diltiazem, which converted her back to sinus rhythm. PAST MEDICAL HISTORY: 1. Coronary artery disease. 2. Chronic kidney disease. 3. Depression. 4. Hypertension. 5. Dementia. PAST SURGICAL HISTORY: Unknown. ALLERGIES: NO KNOWN DRUG ALLERGIES. MEDICATIONS: 1. Remeron 15 mg every night. 2. Lisinopril 20 mg daily. 3. Lexapro 5 mg daily. 4. [place] 10/325 every 4 hours as needed. 5. Aricept 10 mg every night. 6. Colace 100 mg b.i.d. 7. Aspirin 81 mg daily. 8. Norvasc 10 mg daily. 9. Depakote 125 mg b.i.d. FAMILY HISTORY: Unknown at this time. SOCIAL HISTORY: Unknown at this time. REVIEW OF SYSTEMS: Unable to obtain due to the patient's current state. Her only complaint appears abdominal pain. PHYSICAL EXAMINATION: VITAL SIGNS: Temperature 96.0, heart rate 73, blood pressure 136/63, respirations 16, pulse oximetry 97% on room air. GENERAL: The patient is currently resting but arouses to questions. She is unable to answer much due to probable underlying dementia. HEENT: Extraocular muscles intact. Mucous membranes moist. NECK: Supple. No JVD at 45 degrees. No carotid bruits heard bilaterally. Carotid upstroke is brisk in nature. HEART: Regular rate and rhythm. Positive first and second heart sounds with a 1/6 crescendo/decrescendo murmur at the right sternal border. LUNGS: Clear to auscultation bilaterally. No wheezes, rales, or rhonchi. ABDOMEN: Soft, mildly tender in the left upper quadrant, but no guarding or rebound noted. EXTREMITIES: No clubbing, cyanosis, or edema. Femoral and distal pulses are intact bilaterally. NEUROLOGIC: Appears to move all 4 extremities without problems. SKIN: Warm, dry, and intact. OSTEOPATHIC: No kyphoscoliosis or lordosis. LABORATORY DATA: Hemoglobin 16.3, hematocrit 47.6, platelets 270. Potassium 4.1, BUN 123, creatinine 3.31. Electrocardiogram (07/24/2018 at 0113): Atrial fibrillation with controlled ventricular response, possible old inferior myocardial infarction. IMPRESSIONS: 1. Coffee-grounds emesis concerning for an upper gastrointestinal bleed. 2. Atrial fibrillation, which appears to be new onset. 3. Chronic kidney disease. 4. Coronary artery disease. 5. Hypertension. 6. Depression. RECOMMENDATIONS: 1. Ms. Blood appears to have presented for abdominal pain with coffee-grounds emesis, and this will be worked up per the primary team. 2. During her admission, she was found to be in atrial fibrillation with rapid ventricular response and converted to sinus rhythm with 1 dose of Cardizem. 3. We will plan on starting her on low-dose beta john to help control her heart rates if she does go back into atrial fibrillation. 4. She is not an anticoagulation candidate due to possibility of upper gastrointestinal bleed with coffee-grounds emesis. 5. A 2-D echo has been ordered and is pending at this time. 6. Further recommendations will be made based on the hospital course. Thank you for allowing me to see Juhi Blood. If there are any questions, please do not hesitate to call. DO AMIRAH Alvarado/jarrell , 03:31 PM , 03:41 PM
[2018-07-24 18:10] LABS: Bacteria,Urine Occasional /hpf; Bilirubin,Urine Negative (Negative); Clarity,Urine Cloudy (Clear); Color,Urine Yellow (Yellw/Straw); Glucose,Urine (UA) Negative (Negative); Hyaline Casts,Urine 1 /lpf (0-3); Leukocyte Esterase,Urine Moderate (Negative); Mucus,Urine Few /lpf (Occasional); Nitrite,Urine Negative (Negative); Specific Gravity,Urine 1.015 (1.002-1.035); Squamous Epithelial Cell,Urine 1 /hpf (0-5)
[2018-07-24] MEDS: Metoprolol Tartrate 25 MG Tablet PO SCH (21:04)
--- NOTE | 2018-07-25 01:44 | ECG ---
Date Performed: 07/24/2018 Time Performed: 01:13:37 PTAGE: 88 years EKG: ATRIAL FIBRILLATION PATTERN CONSISTENT WITH PULMONARY DISEASE INFERIOR MYOCARDIAL INFARCTIO N ABNORMAL ECG PREVIOUS TRACING : 02/24/2018 18.09 Compared to previous tracing, now in AFib DOCTOR: Marcio Cruz Interpretating Date/Time 07/25/2018 01:44:00
[2018-07-25] MEDS: Sod Chloride 0.9% Inj 1,000 ML IV.CONT SCH ×2 (02:54→10:08)
[2018-07-25 05:35] LABS: Baso % (Auto) 0.1 % (0.0-2.0); Hematocrit 40.8 % (35.0-46.0); Hemoglobin 13.6 gm/dL (11.6-15.3); Lymph # (Auto) 0.9 th/mm3 (1.0-4.8); Mean Corpuscular HGB Conc 33.3 % (32.0-36.0); Mean Corpuscular Hemoglobin 32.1 pg (27.0-34.0); Mean Corpuscular Volume 96.4 fL (80.0-100.0); Mean Platelet Volume 9.7 fL (7.0-11.0); Mono # (Auto) 1.2 th/mm3 (0.0-0.9); Mono % (Auto) 6.5 % (0.0-8.0); Neut # (Auto) 16.4 th/mm3 (1.8-7.7); Neut % (Auto) 88.4 % (16.0-70.0); Platelet Count 218 th/mm3 (150-450); Red Blood Count 4.23 mil/mm3 (4.00-5.30); Red Cell Distribution Width 14.2 % (11.6-17.2); White Blood Count 18.5 th/mm3 (4.0-11.0)
[2018-07-25 05:46] LABS: Calcium 8.1 mg/dL (8.5-10.1); Carbon Dioxide 20.4 meq/L (21.0-32.0); Potassium 4.6 meq/L (3.5-5.1)
[2018-07-25] MEDS: Ciprofloxacin 400 MG/200 ML 400 MG/200 ML PIGGYBACK IV.SIG SCH (06:09)
[2018-07-25] MEDS: Pantoprazole Inj 40 MG Vial IV.PUSH SCH ×2 (06:10→19:16)
--- NOTE | 2018-07-25 08:57 | P.PN ---
Subjective Interval history: Follow-up visit for diverticulitis, new onset of A. fib and acute on chronic kidney disease. Patient is seen and examined resting in bed comfortably and appears to be in no acute distress. She is sleepy but awakens easily to voice and light touch. Physical Exam Vital signs: Vital Signs 07/24/18 09:00 07/24/18 12:00 07/24/18 14:11 Temperature 95.7 F L Pulse Rate 74 67 Respiratory Rate 17 16 Blood Pressure 144/57 H Pulse Oximetry 95 07/24/18 16:00 07/24/18 20:00 07/24/18 23:18 Temperature 97.5 F L 97.3 F L Pulse Rate 76 77 71 Respiratory Rate 18 17 Blood Pressure 164/68 H 153/64 H Pulse Oximetry 95 92 L 07/24/18 23:55 07/25/18 00:00 07/25/18 04:00 Temperature 97.1 F L 97.1 F L Pulse Rate 70 72 61 Respiratory Rate 16 16 Blood Pressure 143/65 H 136/63 Pulse Oximetry 92 L 96 07/25/18 08:00 Temperature 97.4 F L Pulse Rate 74 Respiratory Rate 16 Blood Pressure 133/55 L Pulse Oximetry 94 L Intake & Output 07/24/18 07/25/18 07/25/18 18:59 06:59 18:59 Intake Total 1300 / 1300 1207 / 1207 200 / 200 Output Total 1120 / 1120 450 / 450 Balance 180 / 180 757 / 757 200 / 200 Weight 56.8 kg Intake: IV 1300 / 1300 947 / 947 200 / 200 NS Inj 1,000 ML @ 100 mls/hr IV 1000 / 1000 847 / 847 .CONT .Q10H [facility] Rx#:[id number] Cipro 400 MG/200 ML Inj 400 mg 200 / 200 200 / 200 In 200 ml @ 200 mls/hr IV.SIG Q24H [facility] Rx#:[id number] Flagyl 500 MG Inj 100 ML @ 100 100 / 100 100 / 100 mls/hr IV.SIG Q8H [facility] Rx#: [id number] Oral 260 / 260 Output: Urine 150 / 150 450 / 450 Urine Amount (Catheter) 970 / 970 Indwelling Urethral Catheter 370 / 370 Straight 600 / 600 Other: Date of Last Bowel Movement 07/24/18 07/25/18 # Bowel Movements 0 # Incontinent Bowel Movements 1 Narrative: GENERAL: Well-developed, well-nourished elderly female resting in bed in no acute distress. SKIN: Warm and dry. HEAD: Atraumatic. Normocephalic. EYES: Pupils equal/round. No scleral icterus. No injection or drainage. ENT: No nasal bleeding or discharge. Mucous membranes pink and moist. NECK: Trachea midline. CARDIOVASCULAR: Regular rate and rhythm. RESPIRATORY: Clear to auscultation. Breath sounds equal bilaterally. GASTROINTESTINAL: Abdomen soft, nondistended, + tenderness to lower abdominal quadrants. + Bowel sounds MUSCULOSKELETAL: Extremities without clubbing, cyanosis, or edema. No obvious deformities. NEUROLOGICAL: Awakens easily to voice, oriented to self. No obvious cranial nerve deficits. Motor grossly within normal limits. 4/5 muscle strength in the arms and legs. Normal speech. PSYCHIATRIC: Poor insight and judgment, poor historian. - Urinary Catheter Management Straight Cath placed during this visit: yes, but has since been removed by the nurse Reason for continuing: Acute urinary retention Insertion date: 07/24/18 Insertion time: 17:35 Removal date: 07/24/18 Removal time: 10:19 Indwelling Urethral Catheter Cath placed during this visit: no Results - Labs CBC & Chem 7: 07/25/18 05:02 07/25/18 05:02 Laboratory Results - last 24 hr 07/24/18 07/24/18 07/25/18 14:55 17:21 05:02 WBC 18.5 H RBC 4.23 Hgb 14.4 13.6 Hct 42.6 40.8 MCV 96.4 MCH 32.1 MCHC 33.3 RDW 14.2 Plt Count 218 MPV 9.7 Neut % (Auto) 88.4 H Lymph % (Auto) 5.0 L [place] % (Auto) 6.5 Eos % (Auto) 0.0 Baso % (Auto) 0.1 Neut # (Auto) 16.4 H Lymph # (Auto) 0.9 L [place] # (Auto) 1.2 H Eos # (Auto) 0.0 Baso # (Auto) 0.0 WBC Differential . Differential Comment Auto diff final Sodium Potassium Chloride Carbon Dioxide Anion Gap BUN Creatinine Estimated GFR Random Glucose Calcium Urine Color Yellow Urine Clarity Cloudy H Urine pH 5.0 Ur Specific [place] 1.015 Urine Protein Negative Urine Glucose (UA) Negative Urine Ketones Trace H Urine Occult Blood Moderate H Urine Nitrate Negative Urine Bilirubin Negative Urine Urobilinogen Less than 2 Ur Leukocyte Esterase Moderate H Urine RBC 15 H Urine WBC 11 H Urine WBC Clumps Moderate H Ur Squamous Epith Cells 1 Urine Bacteria Occasional H Hyaline Casts 1 Urine Mucus Few H Micro UA Comment Culture indicated Ur Microscopic Review Not Reportable Urine Culture Comments Culture indicated 07/25/18 05:02 WBC RBC Hgb Hct MCV MCH MCHC RDW Plt Count MPV Neut % (Auto) Lymph % (Auto) [place] % (Auto) Eos % (Auto) Baso % (Auto) Neut # (Auto) Lymph # (Auto) [place] # (Auto) Eos # (Auto) Baso # (Auto) WBC Differential Differential Comment Sodium 147 H D Potassium 4.6 Chloride 118 H D Carbon Dioxide 20.4 L Anion Gap 9 BUN 76 H Creatinine 1.51 H Estimated GFR 32 L Random Glucose 98 Calcium 8.1 L Urine Color Urine Clarity Urine pH Ur Specific [place] Urine Protein Urine Glucose (UA) Urine Ketones Urine Occult Blood Urine Nitrate Urine Bilirubin Urine Urobilinogen Ur Leukocyte Esterase Urine RBC Urine WBC Urine WBC Clumps Ur Squamous Epith Cells Urine Bacteria Hyaline Casts Urine Mucus Micro UA Comment Ur Microscopic Review Urine Culture Comments Microbiology 07/23/18 22:55 Blood - Peripheral Aerobic Blood Culture - Preliminary No growth in 1 day 07/23/18 22:55 Blood - Peripheral Anaerobic Blood Culture - Preliminary No growth in 1 day 07/23/18 23:00 Blood - Peripheral Aerobic Blood Culture - Preliminary No growth in 1 day 07/23/18 23:00 Blood - Peripheral Anaerobic Blood Culture - Preliminary No growth in 1 day - Imaging Impressions Abdomen/Bladder Ultrasound 07/24/18 00:00 CONCLUSION: Mild increased echogenicity to the kidneys which can be seen with medical renal disease. No hydronephrosis is seen. Assessment and Plan - Plan 88-year-old female with past medical history significant for CAD, CKD stage II, HTN, diabetes mellitus, and dementia who presented from [facility] facility due to abdominal pain and coffee-ground emesis. Acute diverticulitis Sepsis (WBC 18.5, lactic acid 2.6, suspected source diverticulitis) Diarrhea, acute -CT abdomen/pelvis with diffuse thickening of the wall of the sigmoid colon as well as mild pericolonic inflammatory changes noted suggestive of mild acute diverticulitis. No pericolonic abscess noted, degenerative changes and scoliosis. Multiple chronic compression deformities involving lumbar spine. -Continue IV Cipro and Flagyl, blood cultures pending -WBC still mildly elevated, afebrile, no abdominal pain today. - New onset of diarrhea, c. diff pending. + BC one bottle for GPC -Suspect contaminant, recheck BC and monitor CBC, so far afebrile. New onset of A. fib -EKG with heart rate 99, reported A. fib, possible a flutter -Status post IV Cardizem, sinus rhythm on telemetry -Pending echo -Cardiology consulted greatly appreciate assistance. -No anticoagulation secondary to suspected GI bleed, rate control with low dose BB. Coffee-ground emesis Possible GI bleed -halfway facility reported coffee-ground emesis -No emesis since admission, H&H remained stable -Continue IV Protonix -Continue monitoring for bleeding Acute on chronic kidney disease stage II On admission BUN 129, creatinine 3.68, baseline creatinine 1.0 -Likely secondary to dehydration, renal function improved, mild acidosis also improved, DC IVF and encourage oral intake. -Renal ultrasound with mild increased echogenicity in kidneys which could be seen in medical renal disease, no hydronephrosis. -Continue monitoring renal function -Hold ROJAS inhibitor, avoid nephrotoxins. Hypertension, chronic -Continue to hold ROJAS inhibitor due to JULISA -Continue home dose Norvasc - BP stable Dementia/depression -Continue home dose Aricept, Depakote and Remeron hyperammonemia, mild 40 - Ongoing diarrhea, recheck ammonia level tomorrow, if still high consider Lactulose, patient already on Flagyl DVT prophylaxis-SCDs, avoid chemical anticoagulation secondary to suspected GI bleed Discussed Condition With: Patient and RN
[2018-07-25] MEDS: amLODIPine 10 MG Tablet PO SCH (10:05)
[2018-07-25] MEDS: Calcium/Vitamin D 250/125 MG Tablet PO SCH ×2 (10:06→20:16)
[2018-07-25] MEDS: Divalproex 125 MG DR Tablet PO SCH ×2 (10:06→20:16)
[2018-07-25] MEDS: Escitalopram 10 MG Tablet PO SCH (10:06)
[2018-07-25] MEDS: Metoprolol Tartrate 25 MG Tablet PO SCH ×2 (10:07→20:18)
--- NOTE | 2018-07-25 11:57 | P.PNCA ---
Subjective Interval history: No events overnight Sleeping in the chair Sinus rhythm Medications and Allergies Active Medications: Active Medications Acetaminophen (Tylenol) 650 mg PO Q4H PRN PRN Reason: Temp > 100.4 Amlodipine Besylate (Norvasc) 10 mg PO DAILY [facility] Last Admin: 07/25/18 10:05 Dose: Not Given Bethanechol Chloride (Urecholine) 10 mg PO TID [facility] Last Admin: 07/25/18 10:07 Dose: 10 mg Calcium/Vitamin D (Oscal With D 250/125 Mg) 2 tab PO BID [facility] Last Admin: 07/25/18 10:06 Dose: 2 tab Divalproex Sodium (Depakote Dr) 125 mg PO BID [facility] Last Admin: 07/25/18 10:06 Dose: 125 mg Donepezil HCl (Aricept) 10 mg PO HS [facility] Last Admin: 07/24/18 21:05 Dose: 10 mg Escitalopram Oxalate (Lexapro) 5 mg PO DAILY [facility] Last Admin: 07/25/18 10:06 Dose: 5 mg Metronidazole/Sodium Chloride (Flagyl 500 Mg Inj) 100 mls @ 100 mls/hr IV.SIG Q8H [facility] Last Admin: 07/25/18 10:05 Dose: 100 mls/hr Ciprofloxacin/Dextrose (Cipro 400 Mg/200 Ml Inj) 400 mg in 200 mls @ 200 mls/ hr IV.SIG Q24H [facility] Last Infusion: 07/25/18 07:13 Dose: Infused Metoprolol Tartrate (Lopressor) 12.5 mg PO BID [facility] Last Admin: 07/25/18 10:07 Dose: Not Given Mirtazapine (Remeron) 15 mg PO [facility] Morphine Sulfate (Morphine Inj) 2 mg IV.PUSH Q3H PRN PRN Reason: PAIN SCALE 1 TO 10 Last Admin: 07/24/18 03:44 Dose: 2 mg Multivitamins (Theragran) 1 tab PO DAILY [facility] Last Admin: 07/25/18 10:06 Dose: 1 tab Ondansetron HCl (Zofran Inj) 4 mg IV.PUSH Q6H PRN PRN Reason: NAUSEA OR VOMITING Last Admin: 07/24/18 09:39 Dose: 4 mg Pantoprazole Sodium (Protonix Inj) 40 mg IV.PUSH Q12H [facility] Last Admin: 07/25/18 06:10 Dose: 40 mg Sodium Chloride (Ns Flush) 2 ml IV.FLUSH PRN PRN PRN Reason: FLUSH AFTER USING IV ACCESS Sodium Chloride (Ns Flush) 2 ml IV.FLUSH BID [facility] Last Admin: 07/25/18 10:05 Dose: 2 ml Sodium Chloride (Ns Flush) 2 ml IV.FLUSH PRN PRN PRN Reason: FLUSH AFTER USING IV ACCESS Vitamin D (Vitamin D3) 1,000 unit PO DAILY [facility] Last Admin: 07/25/18 10:06 Dose: 1,000 unit Allergies Allergy/AdvReac Type Severity Reaction Status Date / Time No Known Allergies Allergy Verified 05/28/18 06:25 Home Medications Medication Instructions Recorded Confirmed Type amlodipine [Norvasc] 10 mg PO DAILY 02/24/18 07/23/18 History aspirin 81 mg PO DAILY 02/24/18 07/23/18 History bisacodyl [Dulcolax (bisacodyl)] 10 mg IA DAILY PRN 02/24/18 07/23/18 History calcium carbonate-vitamin D3 1 tab PO BID 02/24/18 07/23/18 History [Calcium 600 + D(3)] cholecalciferol (vitamin D3) 1,000 unit PO DAILY 02/24/18 07/23/18 History divalproex [Depakote] 125 mg PO BID 02/24/18 07/23/18 History docusate sodium [Colace] 100 mg PO BID 02/24/18 07/23/18 History donepezil [Aricept] 10 mg PO HS 02/24/18 07/23/18 History escitalopram oxalate [Lexapro] 5 mg PO DAILY 02/24/18 07/23/18 History hydrocodone-acetaminophen [[place]] 1 tab PO Q4H PRN 02/24/18 07/23/18 History lisinopril 20 mg PO DAILY 02/24/18 07/23/18 History magnesium citrate [Citroma] 296 ml PO DAILY PRN 02/24/18 07/23/18 History magnesium hydroxide [Milk of 30 ml PO HS PRN 02/24/18 07/23/18 History Magnesia] mirtazapine [Remeron] 15 mg PO HS 02/24/18 07/23/18 History multivitamin with minerals 1 tab PO DAILY 02/24/18 07/23/18 History sodium phosphates [Enema 118 ml IA DAILY PRN 02/24/18 07/23/18 History Disposable] Physical Exam Vital signs: Vital Signs 07/24/18 12:00 07/24/18 14:11 07/24/18 16:00 Temperature 95.7 F L 97.5 F L Pulse Rate 67 76 Respiratory Rate 17 16 18 Blood Pressure 144/57 H 164/68 H Pulse Oximetry 95 95 07/24/18 20:00 07/24/18 23:18 07/24/18 23:55 Temperature 97.3 F L 97.1 F L Pulse Rate 77 71 70 Respiratory Rate 17 16 Blood Pressure 153/64 H 143/65 H Pulse Oximetry 92 L 92 L 07/25/18 00:00 07/25/18 04:00 07/25/18 08:00 Temperature 97.1 F L 97.4 F L Pulse Rate 72 61 74 Respiratory Rate 16 16 Blood Pressure 136/63 133/55 L Pulse Oximetry 96 94 L 07/25/18 10:03 Temperature Pulse Rate 81 Respiratory Rate Blood Pressure 106/51 L Pulse Oximetry 95 Intake & Output 07/24/18 07/25/18 07/25/18 18:59 06:59 18:59 Intake Total 1300 / 1300 1207 / 1207 200 / 200 Output Total 1120 / 1120 450 / 450 Balance 180 / 180 757 / 757 200 / 200 Weight 56.8 kg Intake: IV 1300 / 1300 947 / 947 200 / 200 NS Inj 1,000 ML @ 100 mls/hr IV 1000 / 1000 847 / 847 .CONT .Q10H [facility] Rx#:[id number] Cipro 400 MG/200 ML Inj 400 mg 200 / 200 200 / 200 In 200 ml @ 200 mls/hr IV.SIG Q24H [facility] Rx#:[id number] Flagyl 500 MG Inj 100 ML @ 100 100 / 100 100 / 100 mls/hr IV.SIG Q8H [facility] Rx#: [id number] Oral 260 / 260 Output: Urine 150 / 150 450 / 450 Urine Amount (Catheter) 970 / 970 Indwelling Urethral Catheter 370 / 370 Straight 600 / 600 Other: Date of Last Bowel Movement 07/24/18 07/25/18 07/25/18 # Bowel Movements 0 1 # Incontinent Bowel Movements 1 Narrative: GENERAL: Well-developed, well-nourished elderly female resting in bed in no acute distress. SKIN: Warm and dry. HEAD: Atraumatic. Normocephalic. EYES: Pupils equal/round. No scleral icterus. No injection or drainage. ENT: No nasal bleeding or discharge. Mucous membranes pink and moist. NECK: Trachea midline. CARDIOVASCULAR: Regular rate and rhythm. RESPIRATORY: No accessory muscle use. Clear to auscultation. Breath sounds equal bilaterally. GASTROINTESTINAL: Abdomen soft, nondistended, + tenderness to lower abdominal quadrants. + Bowel sounds MUSCULOSKELETAL: Extremities without clubbing, cyanosis, or edema. No obvious deformities. NEUROLOGICAL: Awakens easily to voice, oriented to self. No obvious cranial nerve deficits. Motor grossly within normal limits. 4/5 muscle strength in the arms and legs. Normal speech. PSYCHIATRIC: Poor insight and judgment, poor historian. - Urinary Catheter Management Straight Cath placed during this visit: yes, but has since been removed by the nurse Reason for continuing: Acute urinary retention Insertion date: 07/24/18 Insertion time: 17:35 Removal date: 07/24/18 Removal time: 10:19 Indwelling Urethral Catheter Cath placed during this visit: no Results 07/25/18 05:02 07/25/18 05:02 Cardiac Enzymes 07/23/18 Range/Units 20:00 AST 36 (15-37) U/L Coagulation 07/23/18 Range/Units 20:00 PT 12.7 H (9.8-11.6) sec APTT 28.9 (23.4-31.7) sec CBC 07/23/18 07/24/18 07/24/18 Range/Units 20:00 02:07 14:55 WBC 18.5 H 17.3 H (4.0-11.0) th/mm3 RBC 5.48 H 5.02 (4.00-5.30) mil/mm3 Hgb 17.5 H 16.3 H 14.4 (11.6-15.3) gm/dL Hct 51.8 H 47.6 H 42.6 (35.0-46.0) % Plt Count 349 270 (150-450) th/mm3 Neut # (Auto) 17.2 H 15.3 H (1.8-7.7) th/mm3 Lymph # (Auto) 0.8 L 0.9 L (1.0-4.8) th/mm3 [place] # (Auto) 0.5 1.1 H (0.0-0.9) th/mm3 Eos # (Auto) 0.0 0.0 (0.0-0.4) th/mm3 Baso # (Auto) 0.0 0.0 (0.0-0.2) th/mm3 07/25/18 Range/Units 05:02 WBC 18.5 H (4.0-11.0) th/mm3 RBC 4.23 (4.00-5.30) mil/mm3 Hgb 13.6 (11.6-15.3) gm/dL Hct 40.8 (35.0-46.0) % Plt Count 218 (150-450) th/mm3 Neut # (Auto) 16.4 H (1.8-7.7) th/mm3 Lymph # (Auto) 0.9 L (1.0-4.8) th/mm3 [place] # (Auto) 1.2 H (0.0-0.9) th/mm3 Eos # (Auto) 0.0 (0.0-0.4) th/mm3 Baso # (Auto) 0.0 (0.0-0.2) th/mm3 Comprehensive Metabolic Panel 07/23/18 07/24/18 07/25/18 Range/Units 20:00 02:07 05:02 Sodium 134 L 136 147 H D (136-145) meq/L Potassium 4.7 4.1 4.6 (3.5-5.1) meq/L Chloride 97 L 105 D 118 H D (98-107) meq/L Carbon Dioxide 17.5 L 17.8 L 20.4 L (21.0-32.0) meq/L BUN 129 H 123 H 76 H (7-18) mg/dL Creatinine 3.68 H 3.31 H 1.51 H (0.50-1.00) mg/dL Calcium 9.4 8.7 8.1 L (8.5-10.1) mg/dL AST 36 (15-37) U/L ALT 61 H (10-53) U/L Alkaline Phosphatase 124 H (45-117) U/L Total Protein 9.1 H (6.4-8.2) g/dL Albumin 3.3 L (3.4-5.0) g/dL Intake and Output 07/24/18 07/25/18 07/25/18 22:59 06:59 14:59 Intake Total 900 / 900 1207 / 1207 200 / 200 Output Total 520 / 520 450 / 450 Balance 380 / 380 757 / 757 200 / 200 Intake: IV 900 / 900 947 / 947 200 / 200 NS Inj 1,000 ML @ 100 mls/hr IV 800 / 800 847 / 847 .CONT .Q10H [facility] Rx#:[id number] Cipro 400 MG/200 ML Inj 400 mg 200 / 200 In 200 ml @ 200 mls/hr IV.SIG Q24H [facility] Rx#:[id number] Flagyl 500 MG Inj 100 ML @ 100 100 / 100 100 / 100 mls/hr IV.SIG Q8H [facility] Rx#: [id number] Oral 260 / 260 Output: Urine 150 / 150 450 / 450 Urine Amount (Catheter) 370 / 370 Indwelling Urethral Catheter 370 / 370 Other: Date of Last Bowel Movement 07/24/18 07/25/18 07/25/18 # Bowel Movements 0 1 # Incontinent Bowel Movements 1 1 Weight 56.8 kg - Imaging and Cardiology Imaging: Impressions Abdomen/Pelvis CT 07/23/18 20:47 CONCLUSION: 1. Diffuse thickening of the wall of the sigmoid colon as well as mild pericolic inflammatory changes are noted suggestive of mild acute diverticulitis. No pericolic abscess is noted. 2. Degenerative changes and scoliosis of the thoracolumbar spine are noted. 3. Multiple chronic compression deformities are noted involving the lumbar spine. Abdomen/Bladder Ultrasound 07/24/18 00:00 CONCLUSION: Mild increased echogenicity to the kidneys which can be seen with medical renal disease. No hydronephrosis is seen. Assessment and Plan - Plan 1. Coffee-grounds emesis concerning for an upper gastrointestinal bleed. Per primary team 2. Atrial fibrillation, which appears to be new onset. Converted to sinus after Cardizem Low dose BB Not an anticoagulation candidate due to GI bleed Echo pending 3. Chronic kidney disease. 4. Coronary artery disease. 5. Hypertension. 6. Depression. 7. No further cardiovascular work up Will see PRN, call with questions
--- NOTE | 2018-07-25 16:08 | ECHRPT ---
Indication: afib and flutter CONCLUSIONS Normal left ventricular size. Wall thickness is measured at the upper limits of normal. The left ventricular systolic function is severely reduced with an estimated ejection fraction in th e range of 25-30%. The estimated pulmonary arterial pressure is 35 mmHg. very technically limited study BP: / HR: Rhythm: MEASUREMENTS (Male / Female) Normal Values Technical Quality:Very technically difficult study 2D ECHO LV Diastolic Diameter PLAX 3.0 cm 4.2 - 5.9 / 3.9 - 5.3 cm IVS Diastolic Thickness 1.1 cm 0.6 - 1.0 / 0.6 - 0.9 cm LVPW Diastolic Thickness 1.5 cm 0.6 - 1.0 / 0.6 - 0.9 cm LV Relative Wall Thickness 0.9 LVOT Diameter 2.0 cm M-MODE LV Diastolic Diameter MM 4.1 cm 4.2 - 5.9 / 3.9 - 5.3 cm LV Systolic Diameter MM 3.6 cm LV Ejection Fraction MM Teich 26.3 % IVS Diastolic Thickness MM 1.4 cm 0.6 - 1.0 / 0.6 - 0.9 cm LVPW Diastolic Thickness MM 1.3 cm 0.6 - 1.0 / 0.6 - 0.9 cm LV Relative Wall Thickness MM 0.7 0.24 - 0.42 / 0.22 - 0.42 DOPPLER TR Peak Velocity 252.0 cm/s TR Peak Gradient 25.4 mmHg Right Atrial Pressure 10.0 mmHg Pulmonary Artery Systolic Pressu 35.4 mmHg Right Ventricular Systolic Press 35.4 mmHg FINDINGS LEFT VENTRICLE Normal left ventricular size. Wall thickness is measured at the upper limits of normal. The left ventricular systolic function is severely reduced with an estimated ejection fraction in th e range of 25-30%. TRICUSPID VALVE The estimated pulmonary arterial pressure is 35 mmHg. Olegario Moreira MD, FACC, FSCAI (Electronically Signed) Final Date:25 July 2018 16:06
[2018-07-25] MEDS: Mirtazapine 15 MG Tablet PO SCH (20:16)
[2018-07-26] MEDS: Ciprofloxacin 400 MG/200 ML 400 MG/200 ML PIGGYBACK IV.SIG SCH (05:01)
[2018-07-26 05:22] LABS: Baso % (Auto) 0.4 % (0.0-2.0); Eos % (Auto) 0.1 % (0.0-4.0); Hematocrit 41.7 % (35.0-46.0); Hemoglobin 13.5 gm/dL (11.6-15.3); Lymph # (Auto) 1.4 th/mm3 (1.0-4.8); Lymph % (Auto) 17.2 % (9.0-44.0); Mean Corpuscular HGB Conc 32.3 % (32.0-36.0); Mean Corpuscular Hemoglobin 31.7 pg (27.0-34.0); Mean Corpuscular Volume 98.1 fL (80.0-100.0); Mean Platelet Volume 10.2 fL (7.0-11.0); Mono # (Auto) 0.8 th/mm3 (0.0-0.9); Mono % (Auto) 10.4 % (0.0-8.0); Neut # (Auto) 5.8 th/mm3 (1.8-7.7); Neut % (Auto) 71.9 % (16.0-70.0); Platelet Count 195 th/mm3 (150-450); Red Blood Count 4.25 mil/mm3 (4.00-5.30); Red Cell Distribution Width 14.5 % (11.6-17.2); White Blood Count 8.1 th/mm3 (4.0-11.0)
[2018-07-26 05:26] LABS: Calcium 7.8 mg/dL (8.5-10.1); Carbon Dioxide 23.6 meq/L (21.0-32.0); Potassium 4.3 meq/L (3.5-5.1)
[2018-07-26] MEDS ORDERED: Loperamide 2 MG Capsule PO PRN (07:03)
[2018-07-26] MEDS: Divalproex 125 MG DR Tablet PO SCH ×2 (09:13→20:13)
[2018-07-26] MEDS: Pantoprazole Inj 40 MG Vial IV.PUSH SCH (09:14)
[2018-07-26] MEDS: Dextrose 5% in Water Inj 1,000 ML IV.CONT SCH ×2 (09:14→18:45)
[2018-07-26] MEDS: Calcium/Vitamin D 250/125 MG Tablet PO SCH ×2 (09:19→20:17)
[2018-07-26] MEDS: Escitalopram 10 MG Tablet PO SCH (09:19)
[2018-07-26] MEDS: amLODIPine 10 MG Tablet PO SCH (09:20)
[2018-07-26] MEDS: Metoprolol Tartrate 25 MG Tablet PO SCH ×2 (09:20→20:22)
[2018-07-26] MEDS: Lactobacillus Acidophilus/L. Spores Tablet PO SCH ×2 (09:20→20:12)
[2018-07-26] MEDS: Amoxicillin/Clavulanate 875/125 MG Tablet PO SCH ×2 (10:20→20:12)
--- NOTE | 2018-07-26 12:52 | P.PN ---
Subjective Interval history: Follow-up visit for diverticulitis, new onset of A. fib and JULISA. Patient is seen and examined resting in bed, quite sleepy but awakens to voice easily. Pashto-speaking and states she "just wants to sleep". Denies any pain, nausea , vomiting fevers or chills. Nurse reports ongoing diarrhea, 4 bowel movements over the past 8 hours. Physical Exam Vital signs: Vital Signs 07/25/18 16:00 07/25/18 20:00 07/25/18 20:07 Temperature 97.5 F L 97.5 F L Pulse Rate 77 78 73 Respiratory Rate 16 16 Blood Pressure 120/56 L 107/53 L Pulse Oximetry 95 96 07/25/18 20:28 07/26/18 00:00 07/26/18 04:00 Temperature 97.7 F 98.2 F Pulse Rate 73 56 L Respiratory Rate 14 16 16 Blood Pressure 115/70 121/55 L Pulse Oximetry 97 96 07/26/18 08:00 07/26/18 09:00 07/26/18 12:00 Temperature 98.1 F 97.7 F Pulse Rate 55 L 60 61 Respiratory Rate 14 16 Blood Pressure 142/65 H 146/60 H Pulse Oximetry 95 94 L Intake & Output 07/25/18 07/26/18 07/26/18 18:59 06:59 18:59 Intake Total 400 / 400 100 / 100 Output Total 800 / 800 Balance 400 / 400 -700 / -700 Weight 56.8 kg Intake: IV 400 / 400 100 / 100 Cipro 400 MG/200 ML Inj 400 mg 200 / 200 In 200 ml @ 200 mls/hr IV.SIG Q24H [facility] Rx#:[id number] Flagyl 500 MG Inj 100 ML @ 100 200 / 200 100 / 100 mls/hr IV.SIG Q8H [facility] Rx#: [id number] Output: Urine Amount (Catheter) 800 / 800 Indwelling Urethral Catheter 800 / 800 Other: Date of Last Bowel Movement 07/25/18 07/26/18 07/26/18 # Bowel Movements 1 # Incontinent Bowel Movements 4 Narrative: GENERAL: Well-developed, well-nourished elderly female resting in bed in no acute distress. SKIN: Warm and dry. HEAD: Atraumatic. Normocephalic. EYES: Pupils equal/round. No scleral icterus. No injection or drainage. ENT: No nasal bleeding or discharge. Mucous membranes pink and moist. NECK: Trachea midline. CARDIOVASCULAR: Regular rate and rhythm. RESPIRATORY: Clear to auscultation. Breath sounds equal bilaterally. GASTROINTESTINAL: Abdomen soft, nondistended, + tenderness to lower abdominal quadrants. + Bowel sounds MUSCULOSKELETAL: Extremities without clubbing, cyanosis, or edema. No obvious deformities. NEUROLOGICAL: Awakens easily to voice, oriented to self. No obvious cranial nerve deficits. Motor grossly within normal limits. Normal speech. PSYCHIATRIC: Poor insight and judgment, poor historian. - Urinary Catheter Management Straight Cath placed during this visit: yes, but has since been removed by the nurse Reason for continuing: Other continuation reason Insertion date: 07/24/18 Insertion time: 17:35 Removal date: 07/24/18 Removal time: 10:19 Indwelling Urethral Catheter Cath placed during this visit: no Reason for continuing: Other continuation reason Results - Labs CBC & Chem 7: 07/26/18 04:52 07/26/18 04:52 Laboratory Results - last 24 hr 07/25/18 07/26/18 07/26/18 Unknown 04:52 04:52 WBC 8.1 D RBC 4.25 Hgb 13.5 Hct 41.7 MCV 98.1 MCH 31.7 MCHC 32.3 RDW 14.5 Plt Count 195 MPV 10.2 Neut % (Auto) 71.9 H Lymph % (Auto) 17.2 [place] % (Auto) 10.4 H Eos % (Auto) 0.1 Baso % (Auto) 0.4 Neut # (Auto) 5.8 Lymph # (Auto) 1.4 [place] # (Auto) 0.8 Eos # (Auto) 0.0 Baso # (Auto) 0.0 WBC Differential . Differential Comment Auto diff final Sodium Potassium Chloride Carbon Dioxide Anion Gap BUN Creatinine Estimated GFR Random Glucose Calcium Ammonia 34 H Stl C.difficile DNA Amp Negative St C. diff Tox Epid 027 Negative 07/26/18 04:52 WBC RBC Hgb Hct MCV MCH MCHC RDW Plt Count MPV Neut % (Auto) Lymph % (Auto) [place] % (Auto) Eos % (Auto) Baso % (Auto) Neut # (Auto) Lymph # (Auto) [place] # (Auto) Eos # (Auto) Baso # (Auto) WBC Differential Differential Comment Sodium 151 H Potassium 4.3 Chloride 120 H Carbon Dioxide 23.6 Anion Gap 7 BUN 48 H Creatinine 1.18 H Estimated GFR 43 L Random Glucose 87 Calcium 7.8 L Ammonia Stl C.difficile DNA Amp St C. diff Tox Epid 027 Microbiology 07/25/18 18:54 Blood - Peripheral Aerobic Blood Culture - Preliminary No growth in 1 day 07/25/18 18:54 Blood - Peripheral Anaerobic Blood Culture - Preliminary No growth in 1 day 07/23/18 22:55 Blood - Peripheral Aerobic Blood Culture - Preliminary No growth in 3 days 07/23/18 22:55 Blood - Peripheral Anaerobic Blood Culture - Preliminary No growth in 3 days 07/23/18 23:00 Blood - Peripheral Aerobic Blood Culture - Preliminary Staphylococcus coag negative 07/23/18 23:00 Blood - Peripheral Anaerobic Blood Culture - Preliminary No growth in 3 days 07/24/18 17:21 Clean Catch Urine Urine Culture - Final No growth in 48 hours Assessment and Plan - Plan 88-year-old female with past medical history significant for CAD, CKD stage II, HTN, diabetes mellitus, and dementia who presented from [facility] facility due to abdominal pain and coffee-ground emesis. Acute diverticulitis Sepsis (WBC 18.5, lactic acid 2.6, suspected source diverticulitis) Diarrhea, acute -CT abdomen/pelvis with diffuse thickening of the wall of the sigmoid colon as well as mild pericolonic inflammatory changes noted suggestive of mild acute diverticulitis. No pericolonic abscess noted, degenerative changes and scoliosis. Multiple chronic compression deformities involving lumbar spine. -Switch IV Cipro and Flagyl to oral Augmentin. No further abdominal pain, afebrile, leukocytosis resolved. -Ongoing diarrhea, likely secondary to antibiotics, C. difficile negative. Probiotics, PRN Imodium, IV fluids for mild hypernatremia. + BC one bottle for Staphylococcus coagulase-negative, likely contaminated. -Repeat blood culture so far negative, leukocytosis resolved, afebrile. New onset of A. fib -EKG with heart rate 99, reported A. fib, possible a flutter -Status post IV Cardizem, sinus rhythm on telemetry -Echo reviewed, EF 25-to 30%, severely reduced systolic function, noted very technically limited study. -Cardiology consulted greatly appreciate assistance. -No anticoagulation secondary to suspected GI bleed, rate control with low dose BB. Resume ROJAS inhibitor low dose. Coffee-ground emesis Possible GI bleed -[facility] coffee-ground em[facility] -No emesis since admission, H&H remained stable -Switch IV Protonix to p.o. -Continue monitoring for bleeding Acute on chronic kidney disease stage II On admission BUN 129, creatinine 3.68, baseline creatinine 1.0 -Likely secondary to dehydration, renal function improved, mild acidosis also improved. Mild hypernatremia today, D5W, recheck BMP in the a.m. peer -Renal ultrasound with mild increased echogenicity in kidneys which could be seen in medical renal disease, no hydronephrosis. -Continue monitoring renal function -Low-dose ROJAS inhibitor secondary to systolic heart failure, avoid nephrotoxins. Hypertension, chronic -Resume low-dose ROJAS inhibitor -Continue home dose Norvasc and beta-john - BP stable Dementia/depression -Continue home dose Aricept, Depakote and Remeron hyperammonemia, mild 40 - Ongoing diarrhea, ammonia slightly improved, 32 Urinary retention, acute -[place] catheter discontinued today, bladder training -Continue bethanechol, UA with no growth after 24 hours. DVT prophylaxis-SCDs, avoid chemical anticoagulation secondary to suspected GI bleed Discussed Condition With: Patient and resident surgeon Planning: Possible discharge tomorrow, depending on if diarrhea improves or resolves.
[2018-07-26] MEDS: Mirtazapine 15 MG Tablet PO SCH (20:13)
[2018-07-27] MEDS: Dextrose 5% in Water Inj 1,000 ML IV.CONT SCH ×2 (03:01→12:47)
[2018-07-27] MEDS: Pantoprazole Sodium 20 MG DR Tablet PO SCH (08:37)
[2018-07-27] MEDS: Lisinopril 5 MG Tablet PO SCH (08:37)
[2018-07-27] MEDS: Divalproex 125 MG DR Tablet PO SCH ×2 (08:37→21:00)
[2018-07-27] MEDS: Amoxicillin/Clavulanate 875/125 MG Tablet PO SCH ×2 (08:37→21:00)
[2018-07-27] MEDS: Metoprolol Tartrate 25 MG Tablet PO SCH (08:37)
[2018-07-27] MEDS: Lactobacillus Acidophilus/L. Spores Tablet PO SCH ×2 (08:37→21:00)
[2018-07-27] MEDS: Escitalopram 10 MG Tablet PO SCH (08:38)
[2018-07-27] MEDS: Calcium/Vitamin D 250/125 MG Tablet PO SCH ×2 (08:38→21:00)
[2018-07-27] MEDS: amLODIPine 10 MG Tablet PO SCH (08:38)
--- NOTE | 2018-07-27 08:41 | P.PN ---
Subjective Interval history: Follow-up visit for diverticulitis, JULISA and diarrhea. Patient seen and examined sitting up in bed eating breakfast awake and alert. She is oriented to self and place. Denies any nausea, vomiting, abdominal pain, shortness of breath, dizziness, palpitations or lightheadedness. She does endorse some sternal pain with coughing, nonproductive cough, intermittent, does not know how many days it has been ongoing. Patient is on room air, lungs sound clear. Nurse reports 3 episodes overnight of incontinent diarrhea, voiding well. Physical Exam Vital signs: Vital Signs 07/26/18 09:00 07/26/18 12:00 07/26/18 16:00 Temperature 97.7 F 97.4 F L Pulse Rate 60 61 61 Respiratory Rate 16 16 Blood Pressure 146/60 H 165/70 H Pulse Oximetry 94 L 94 L 07/26/18 20:00 07/26/18 23:14 07/27/18 00:00 Temperature 97.6 F 97.6 F Pulse Rate 55 L 54 L 58 L Respiratory Rate 18 16 Blood Pressure 155/67 H 118/65 Pulse Oximetry 96 95 07/27/18 04:00 Temperature 97.5 F L Pulse Rate 55 L Respiratory Rate 17 Blood Pressure 147/63 H Pulse Oximetry 99 Intake & Output 07/26/18 07/27/18 07/27/18 18:59 06:59 18:59 Intake Total 1240 / 1240 1000 / 1000 Balance 1240 / 1240 1000 / 1000 Intake: IV 1000 / 1000 1000 / 1000 D5W Inj 1,000 ML @ 100 mls/hr 1000 / 1000 1000 / 1000 IV.CONT .Q10H [facility] Rx#:[id number] Oral 240 / 240 Other: # Voids 2 # Incontinent Voids 1 Date of Last Bowel Movement 07/26/18 07/27/18 07/27/18 # Bowel Movements 1 # Incontinent Bowel Movements 2 Narrative: GENERAL: Well-developed, well-nourished elderly female sitting up in bed in no acute distress. SKIN: Warm and dry. HEAD: Atraumatic. Normocephalic. EYES: Pupils equal/round. No scleral icterus. No injection or drainage. ENT: No nasal bleeding or discharge. Mucous membranes pink and moist. NECK: Trachea midline. CARDIOVASCULAR: Regular rate and rhythm. RESPIRATORY: Clear to auscultation. Breath sounds equal bilaterally. GASTROINTESTINAL: Abdomen soft, nondistended, + tenderness to lower abdominal quadrants. + Bowel sounds MUSCULOSKELETAL: Extremities without clubbing, cyanosis, or edema. No obvious deformities. NEUROLOGICAL: Awake and alert oriented to self and place. No obvious cranial nerve deficits. Motor grossly within normal limits. Normal speech. PSYCHIATRIC: Calm and pleasant, poor historian. - Urinary Catheter Management Straight Cath placed during this visit: yes, but has since been removed by the nurse Reason for continuing: Other continuation reason Insertion date: 07/24/18 Insertion time: 17:35 Removal date: 07/24/18 Removal time: 10:19 Indwelling Urethral Catheter Cath placed during this visit: no Reason for continuing: Other continuation reason Results - Labs CBC & Chem 7: 07/26/18 04:52 07/27/18 09:43 Microbiology 07/25/18 18:54 Blood - Peripheral Aerobic Blood Culture - Preliminary No growth in 1 day 07/25/18 18:54 Blood - Peripheral Anaerobic Blood Culture - Preliminary No growth in 1 day 07/23/18 22:55 Blood - Peripheral Aerobic Blood Culture - Preliminary No growth in 3 days 07/23/18 22:55 Blood - Peripheral Anaerobic Blood Culture - Preliminary No growth in 3 days 07/23/18 23:00 Blood - Peripheral Aerobic Blood Culture - Preliminary Staphylococcus coag negative 07/23/18 23:00 Blood - Peripheral Anaerobic Blood Culture - Preliminary No growth in 3 days 07/24/18 17:21 Clean Catch Urine Urine Culture - Final No growth in 48 hours Assessment and Plan - Plan 88-year-old female with past medical history significant for CAD, CKD stage II, HTN, diabetes mellitus, and dementia who [facility] and coffee-ground emesis. Acute diverticulitis Sepsis (WBC 18.5, lactic acid 2.6, suspected source diverticulitis) Diarrhea, acute -CT abdomen/pelvis with diffuse thickening of the wall of the sigmoid colon as well as mild pericolonic inflammatory changes noted suggestive of mild acute diverticulitis. No pericolonic abscess noted, degenerative changes and scoliosis. Multiple chronic compression deformities involving lumbar spine. -Switch IV Cipro and Flagyl to oral Augmentin. No further abdominal pain, afebrile, leukocytosis resolved. -Ongoing diarrhea, likely secondary to antibiotics, C. difficile negative. Probiotics, PRN Imodium, DC IV fluids she is awake/alert and eating. + one bottle for Staphylococcus coagulase-negative, likely contaminated. -Repeat blood culture so far negative, leukocytosis resolved, afebrile. New onset of A. fib -EKG with heart rate 99, reported A. fib, possible a flutter -Status post IV Cardizem, sinus rhythm on telemetry -Echo reviewed, EF 25-to 30%, severely reduced systolic function, noted very technically limited study. Keep mag >2.0, K >4. -Cardiology consulted, input noted and appreciated. -No anticoagulation secondary to suspected GI bleed, rate control with low dose BB. Resume ROJAS inhibitor low dose. Coffee-ground emesis Possible GI bleed -[facility] facility reported coffee-ground emesis -No emesis since admission, H&H remained stable -Protonix to p.o. -Continue monitoring for bleeding Acute on chronic kidney disease stage II On admission BUN 129, creatinine 3.68, baseline creatinine 1.0 -Likely secondary to dehydration, renal function improved, mild acidosis also improved. Mild hypernatremia today, D5W, recheck BMP in the a.m. peer -Renal ultrasound with mild increased echogenicity in kidneys which could be seen in medical renal disease, no hydronephrosis. -Renal function continues to improve. -Low-dose ROJAS inhibitor secondary to systolic heart failure, avoid nephrotoxins. Hypertension, chronic -Resume low-dose ROJAS inhibitor -Continue home dose Norvasc and beta-john - BP stable, bradycardic. Dementia/depression -Continue home dose Aricept, Depakote and Remeron hyperammonemia, mild 40 - slightly improved, 32, patient awake and alert today. Urinary retention, acute -[place] catheter discontinued today, bladder training -Continue bethanechol, UA with no growth after 24 hours. DVT prophylaxis-SCDs, avoid chemical anticoagulation secondary to suspected GI bleed Discussed Condition With: Patient and general adjuster Planning: Possible discharge tomorrow pending diarrhea improvement and further cardiology recommendations.
[2018-07-27 10:12] LABS: Calcium 7.8 mg/dL (8.5-10.1); Carbon Dioxide 25.3 meq/L (21.0-32.0); Potassium 3.8 meq/L (3.5-5.1)
[2018-07-27] MEDS: Magnesium Oxide 400 MG Tablet PO SCH ×2 (10:59→21:00)
--- NOTE | 2018-07-27 20:07 | P.PNCA ---
Subjective Interval history: More awake today Denies SOB Chest pain with coughing Medications and Allergies Active Medications: Active Medications Acetaminophen (Tylenol) 650 mg PO Q4H PRN PRN Reason: Temp > 100.4 Amlodipine Besylate (Norvasc) 10 mg PO DAILY [facility] Last Admin: 07/27/18 08:38 Dose: 10 mg Amoxicillin/Clavulanate Potassium (Augmentin 875/125 Mg) 1 tab PO Q12HR [facility] Last Admin: 07/27/18 08:37 Dose: 1 tab Bethanechol Chloride (Urecholine) 10 mg PO TID [facility] Last Admin: 07/27/18 17:09 Dose: Not Given Calcium/Vitamin D (Oscal With D 250/125 Mg) 2 tab PO BID [facility] Last Admin: 07/27/18 08:38 Dose: 2 tab Cholestyramine Resin (Questran 4 Gm Pkt) 4 gm PO BID [facility] Divalproex Sodium (Depakote Dr) 125 mg PO BID [facility] Last Admin: 07/27/18 08:37 Dose: 125 mg Donepezil HCl (Aricept) 10 mg PO [facility] Last Admin: 07/26/18 20:12 Dose: 10 mg Escitalopram Oxalate (Lexapro) 5 mg PO DAILY [facility] Last Admin: 07/27/18 08:38 Dose: 5 mg Lactobacillus Acidophilus (Lactinex) 1 tab PO BID [facility] Last Admin: 07/27/18 08:37 Dose: 1 tab Lisinopril (Prinivil) 2.5 mg PO DAILY [facility] Last Admin: 07/27/18 08:37 Dose: 2.5 mg Loperamide HCl (Imodium) 2 mg PO Q6H PRN PRN Reason: DIARRHEA Last Admin: 07/27/18 08:37 Dose: 2 mg Magnesium Oxide (Mag-Ox) 400 mg PO BID [facility] Stop: 07/27/18 21:01 Last Admin: 07/27/18 10:59 Dose: 400 mg Mirtazapine (Remeron) 15 mg PO [facility] Last Admin: 07/26/18 20:13 Dose: 15 mg Miscellaneous (Pill Splitter) 1 each OTHER UNSCH PRN PRN Reason: SEE LABEL COMMENTS Morphine Sulfate (Morphine Inj) 2 mg IV.PUSH Q3H PRN PRN Reason: PAIN SCALE 1 TO 10 Last Admin: 07/24/18 03:44 Dose: 2 mg Multivitamins (Theragran) 1 tab PO DAILY [facility] Last Admin: 07/27/18 08:37 Dose: 1 tab Ondansetron HCl (Zofran Inj) 4 mg IV.PUSH Q6H PRN PRN Reason: NAUSEA OR VOMITING Last Admin: 07/24/18 09:39 Dose: 4 mg Pantoprazole Sodium (Protonix) 20 mg PO DAILY [facility] Last Admin: 07/27/18 08:37 Dose: 20 mg Sodium Chloride (Ns Flush) 2 ml IV.FLUSH BID [facility] Last Admin: 07/27/18 08:38 Dose: Not Given Sodium Chloride (Ns Flush) 2 ml IV.FLUSH PRN PRN PRN Reason: FLUSH AFTER USING IV ACCESS Vitamin D (Vitamin D3) 1,000 unit PO DAILY [facility] Last Admin: 07/27/18 08:37 Dose: 1,000 unit Allergies Allergy/AdvReac Type Severity Reaction Status Date / Time No Known Allergies Allergy Verified 05/28/18 06:25 Home Medications Medication Instructions Recorded Confirmed Type amlodipine [Norvasc] 10 mg PO DAILY 02/24/18 07/23/18 History aspirin 81 mg PO DAILY 02/24/18 07/23/18 History bisacodyl [Dulcolax (bisacodyl)] 10 mg ME DAILY PRN 02/24/18 07/23/18 History calcium carbonate-vitamin D3 1 tab PO BID 02/24/18 07/23/18 History [Calcium 600 + D(3)] cholecalciferol (vitamin D3) 1,000 unit PO DAILY 02/24/18 07/23/18 History divalproex [Depakote] 125 mg PO BID 02/24/18 07/23/18 History docusate sodium [Colace] 100 mg PO BID 02/24/18 07/23/18 History donepezil [Aricept] 10 mg PO HS 02/24/18 07/23/18 History escitalopram oxalate [Lexapro] 5 mg PO DAILY 02/24/18 07/23/18 History hydrocodone-acetaminophen [[place]] 1 tab PO Q4H PRN 02/24/18 07/23/18 History lisinopril 20 mg PO DAILY 02/24/18 07/23/18 History magnesium citrate [Citroma] 296 ml PO DAILY PRN 02/24/18 07/23/18 History magnesium hydroxide [Milk of 30 ml PO HS PRN 02/24/18 07/23/18 History Magnesia] mirtazapine [Remeron] 15 mg PO HS 02/24/18 07/23/18 History multivitamin with minerals 1 tab PO DAILY 02/24/18 07/23/18 History sodium phosphates [Enema 118 ml ME DAILY PRN 02/24/18 07/23/18 History Disposable] Physical Exam Vital signs: Vital Signs 07/26/18 23:14 07/27/18 00:00 07/27/18 04:00 Temperature 97.6 F 97.5 F L Pulse Rate 54 L 58 L 55 L Respiratory Rate 16 17 Blood Pressure 118/65 147/63 H Pulse Oximetry 95 99 07/27/18 08:00 07/27/18 12:00 07/27/18 16:00 Temperature 98.2 F 97.7 F 97.7 F Pulse Rate 65 60 62 Respiratory Rate 20 22 20 Blood Pressure 150/66 H 120/58 L 131/64 Pulse Oximetry 99 98 98 Intake & Output 07/27/18 07/27/18 07/28/18 06:59 18:59 06:59 Intake Total 1000 / 1000 1140 / 1140 Balance 1000 / 1000 1140 / 1140 Intake: IV 1000 / 1000 540 / 540 D5W Inj 1,000 ML @ 100 mls/hr 1000 / 1000 540 / 540 IV.CONT .Q10H [facility] Rx#:[id number] Oral 600 / 600 Other: # Incontinent Voids 1 3 Date of Last Bowel Movement 07/27/18 07/27/18 # Bowel Movements 1 3 Narrative: GENERAL: Well-developed, well-nourished elderly female sitting up in bed in no acute distress. SKIN: Warm and dry. HEAD: Atraumatic. Normocephalic. EYES: Pupils equal/round. No scleral icterus. No injection or drainage. ENT: No nasal bleeding or discharge. Mucous membranes pink and moist. NECK: Trachea midline. CARDIOVASCULAR: Regular rate and rhythm. RESPIRATORY: Clear to auscultation. Breath sounds equal bilaterally. GASTROINTESTINAL: Abdomen soft, nondistended, + tenderness to lower abdominal quadrants. + Bowel sounds MUSCULOSKELETAL: Extremities without clubbing, cyanosis, or edema. No obvious deformities. NEUROLOGICAL: Awake and alert oriented to self and place. No obvious cranial nerve deficits. Motor grossly within normal limits. Normal speech. PSYCHIATRIC: Calm and pleasant, poor historian. - Urinary Catheter Management Straight Cath placed during this visit: yes, but has since been removed by the nurse Reason for continuing: Other continuation reason Insertion date: 07/24/18 Insertion time: 17:35 Removal date: 07/24/18 Removal time: 10:19 Indwelling Urethral Catheter Cath placed during this visit: no Reason for continuing: Other continuation reason Results 07/26/18 04:52 07/27/18 09:43 CBC 07/26/18 Range/Units 04:52 WBC 8.1 D (4.0-11.0) th/mm3 RBC 4.25 (4.00-5.30) mil/mm3 Hgb 13.5 (11.6-15.3) gm/dL Hct 41.7 (35.0-46.0) % Plt Count 195 (150-450) th/mm3 Neut # (Auto) 5.8 (1.8-7.7) th/mm3 Lymph # (Auto) 1.4 (1.0-4.8) th/mm3 White # (Auto) 0.8 (0.0-0.9) th/mm3 Eos # (Auto) 0.0 (0.0-0.4) th/mm3 Baso # (Auto) 0.0 (0.0-0.2) th/mm3 Comprehensive Metabolic Panel 07/26/18 07/27/18 Range/Units 04:52 09:43 Sodium 151 H 146 H (136-145) meq/L Potassium 4.3 3.8 (3.5-5.1) meq/L Chloride 120 H 114 H (98-107) meq/L Carbon Dioxide 23.6 25.3 (21.0-32.0) meq/L BUN 48 H 24 H (7-18) mg/dL Creatinine 1.18 H 0.93 (0.50-1.00) mg/dL Calcium 7.8 L 7.8 L (8.5-10.1) mg/dL Intake and Output 07/27/18 07/27/18 07/27/18 06:59 14:59 22:59 Intake Total 1000 / 1000 540 / 540 600 / 600 Balance 1000 / 1000 540 / 540 600 / 600 Intake: IV 1000 / 1000 540 / 540 D5W Inj 1,000 ML @ 100 mls/hr 1000 / 1000 540 / 540 IV.CONT .Q10H [facility] Rx#:[id number] Oral 600 / 600 Other: # Incontinent Voids 1 3 Date of Last Bowel Movement 07/27/18 07/27/18 # Bowel Movements 1 3 Assessment and Plan - Assessment (1) Afib Code(s): I48.91 - Unspecified atrial fibrillation Status: Acute (2) Cardiomyopathy Code(s): I42.9 - Cardiomyopathy, unspecified Status: Acute - Plan 1. Coffee-grounds emesis concerning for an upper gastrointestinal bleed. Per primary team 2. Atrial fibrillation, which appears to be new onset. Converted to sinus after Cardizem Low dose BB Not an anticoagulation candidate due to GI bleed 3. Chronic kidney disease. 4. Coronary artery disease. 5. Hypertension. 6. Depression. 7. Cardiomyopathy EF 25-30% Not a candidate for ischemic work up with concern for GI bleed, age, overall comorbidities Possible tachyarrhythmia induced BB changed to Coreg ROJAS-I add Con't medical management
[2018-07-27] MEDS: Mirtazapine 15 MG Tablet PO SCH (21:00)
--- NOTE | 2018-07-28 09:01 | P.DS ---
Date of admission: 07/23/18 22:38 Primary care physician: UNKNOWN Attending physician on discharge: Bryson Mcconnell Anticipated date of discharge: 07/28/18 Brief History from admission: 88-year-old female with a past medical history significant for coronary artery disease, diabetes mellitus, anxiety/depression, hypertension and chronic kidney disease stage II presents to the emergency department from her assisted facility for the evaluation of abdominal pain and coffee-ground emesis. According to the patient, who is a poor historian, her abdominal pain started today. Per paramedics report, coffee-ground emesis was visualized on their arrival to the patient's assisted facility. The patient denies any other pain. She denies fever/chills. No chest pain or shortness of breath. No focal neurologic deficits. Review of systems limited by patient's mental status. DS: Medications - Discharge Medications Prescriptions: amoxicillin-pot clavulanate 1 tab PO Q12HR #10 tab carvedilol [Coreg] 3.125 mg PO BID #60 tab cholestyramine (with sugar) 4 gm PO BID #10 ea lisinopril 2.5 mg PO DAILY #30 tab DS: Summary Hospital Course: 88-year-old female with past medical history significant for CKD, CAD, HTN, diverticulosis, dementia and anxiety who presented to the emergency department on 07/24 from assisted facility for evaluation of abdominal pain and coffee-ground emesis. Lab work on admission revealed leukocytosis with white count 18.5, hemoglobin 17.5/51.8. CMP with creatinine 3.68, BUN 129. CT of abdomen pelvis with diffuse thickening of the wall of the sigmoid colon as well as mild pericolonic inflammatory changes noted suggestive of mild acute diverticulitis. No pericolonic abscess noted, degenerative changes and scoliosis. Multiple chronic compression deformities involving lumbar spine. Patient was started on IV Cipro and Flagyl. On admission patient also developed new onset of A. fib for which she received IV Cardizem converting back to sinus rhythm. Cardiology services consulted for further recommendations. Her H&H during her hospitalization remained stable and she did not have recurrent episodes of coffee-ground emesis. Echocardiogram ordered and revealed EF 25-to 30%, severely reduced systolic function, noted very technically limited study. Cardiology recommended no anticoagulation secondary to possible GI bleed. Patient also not a candidate for ischemic workup due to concerns of GI bleed, age, overall comorbidities. Suspected possible tachyarrhythmia induced, treated with oral Coreg, ROJAS inhibitor with recommendations to continue medical management. Patient also developed urinary retention and had an indwelling catheter which was subsequently removed and patient able to void adequately. Blood culture in 1 bottle growing Staphylococcus hominis hominis, we culture was negative after 3 days, UA negative. Renal function improved with creatinine 0.93, BUN 24. Leukocytosis also resolved, afebrile. Patient experienced diarrhea for which she was started on Lactinex along with as needed Imodium and scheduled Questran. Today patient is seen and examined sitting up in bed eating breakfast this morning in no acute distress. She denies any nausea, vomiting, diarrhea, abdominal pain, cough, shortness of breath, dizziness or chest pain. She reports that she has been "eating, eating, eating", voices no acute concerns. Discussed with nurse reports one BM overnight, soft, no other events. - Time Spent with Patient Total time spent providing and/or coordinating discharge services: Greater than 30 minutes - Quality: VTE Deep Vein Thrombosis/Pulmonary Embolism Present on Admission: No Exam Vital signs: Vital Signs 07/27/18 12:00 07/27/18 16:00 07/27/18 20:00 Temperature 97.7 F 97.7 F Pulse Rate 60 62 63 Respiratory Rate 22 20 Blood Pressure 120/58 L 131/64 Pulse Oximetry 98 98 07/27/18 20:05 07/28/18 00:00 07/28/18 00:05 Temperature 97.1 F L 98.0 F Pulse Rate 61 58 L 58 L Respiratory Rate 19 18 Blood Pressure 141/62 H 139/66 Pulse Oximetry 98 95 07/28/18 04:00 07/28/18 04:30 07/28/18 08:00 Temperature 97.6 F 97.8 F Pulse Rate 60 59 L 59 L Respiratory Rate 19 24 Blood Pressure 149/65 H 130/60 Pulse Oximetry 96 98 Intake & Output 07/27/18 07/28/18 07/28/18 18:59 06:59 18:59 Intake Total 1140 / 1140 750 / 750 Balance 1140 / 1140 750 / 750 Weight 56.8 kg Intake: IV 540 / 540 D5W Inj 1,000 ML @ 100 mls/hr 540 / 540 IV.CONT .Q10H STEVEN Rx#:[id number] Oral 600 / 600 750 / 750 Other: # Voids 3 2 # Incontinent Voids 3 1 Date of Last Bowel Movement 07/27/18 07/28/18 # Bowel Movements 3 2 Narrative: GENERAL: Well-developed, well-nourished elderly female sitting up in bed in no acute distress. SKIN: Warm and dry. HEAD: Atraumatic. Normocephalic. EYES: Pupils equal/round. No scleral icterus. No injection or drainage. ENT: No nasal bleeding or discharge. Mucous membranes pink and moist. NECK: Trachea midline. CARDIOVASCULAR: Regular rate and rhythm. RESPIRATORY: Clear to auscultation. Breath sounds equal bilaterally. GASTROINTESTINAL: Abdomen soft, nondistended, nontender. + Bowel sounds MUSCULOSKELETAL: Extremities without clubbing, cyanosis, or edema. No obvious deformities. NEUROLOGICAL: Awake and alert oriented to self and place. No obvious cranial nerve deficits. Motor grossly within normal limits. Normal speech. PSYCHIATRIC: Calm and pleasant, poor historian. Results Procedures completed during hospitalization: None Labs on day of discharge: Labs from last 24 hours 07/27/18 07/27/18 09:43 09:43 Sodium 146 H Potassium 3.8 Chloride 114 H Carbon Dioxide 25.3 Anion Gap 7 BUN 24 H Creatinine 0.93 Estimated GFR 57 L Random Glucose 104 Calcium 7.8 L Magnesium 1.9 Preliminary micro results at discharge 07/25/18 18:54 Aerobic Blood Culture - Preliminary Blood - Peripheral No growth in 2 days Anaerobic Blood Culture - Preliminary No growth in 2 days 07/23/18 22:55 Aerobic Blood Culture - Preliminary Blood - Peripheral No growth in 4 days Anaerobic Blood Culture - Preliminary No growth in 4 days 07/23/18 23:00 Aerobic Blood Culture - Preliminary Blood - Peripheral Staphylococcus coag negative Anaerobic Blood Culture - Preliminary No growth in 4 days - Impressions ITS Impressions Abdomen/Pelvis CT 07/23/18 20:47 CONCLUSION: 1. Diffuse thickening of the wall of the sigmoid colon as well as mild pericolic inflammatory changes are noted suggestive of mild acute diverticulitis. No pericolic abscess is noted. 2. Degenerative changes and scoliosis of the thoracolumbar spine are noted. 3. Multiple chronic compression deformities are noted involving the lumbar spine. Abdomen/Bladder Ultrasound 07/24/18 00:00 CONCLUSION: Mild increased echogenicity to the kidneys which can be seen with medical renal disease. No hydronephrosis is seen. Discharge Plan - Discharge Disposition Patient Disposition: 03 Discharge to SNF - Discharge Condition Condition: Stable - Discharge Order Discharge Orders: Discharge Order (Routine); Ordered 07/28/18 Ordered By: Clemente Esposito - Discharge Details Anticipated Discharge Date: 07/23/18 - Physicians Team Primary Care Provider: ARMIDA, Attending Provider: Bryson Mcconnell Other Providers: Marcio Cruz DO ; [facility] ; [facility],[place]
[2018-07-28] MEDS: Calcium/Vitamin D 250/125 MG Tablet PO SCH (10:34)
[2018-07-28] MEDS: Pantoprazole Sodium 20 MG DR Tablet PO SCH (10:35)
[2018-07-28] MEDS: Lisinopril 5 MG Tablet PO SCH (10:35)
[2018-07-28] MEDS: Escitalopram 10 MG Tablet PO SCH (10:36)
[2018-07-28] MEDS: amLODIPine 10 MG Tablet PO SCH (10:36)
[2018-07-28] MEDS: Divalproex 125 MG DR Tablet PO SCH (10:36)
[2018-07-28] MEDS: Lactobacillus Acidophilus/L. Spores Tablet PO SCH (10:37)
[2018-07-28] MEDS: Amoxicillin/Clavulanate 875/125 MG Tablet PO SCH (10:37)
[2018-07-28 16:23] VITALS: BP 157/67; PULSE 60; RESP 22; TEMP 98.1; O2SAT 99
--- NOTE | 2018-07-28 20:12 | P.PNCA ---
Subjective Interval history: No events overnight Resting comfortably Medications and Allergies Allergies Allergy/AdvReac Type Severity Reaction Status Date / Time No Known Allergies Allergy Verified 05/28/18 06:25 Home Medications Medication Instructions Recorded Confirmed Type amlodipine [Norvasc] 10 mg PO DAILY 02/24/18 07/23/18 History calcium carbonate-vitamin D3 1 tab PO BID 02/24/18 07/23/18 History [Calcium 600 + D(3)] divalproex [Depakote] 125 mg PO BID 02/24/18 07/23/18 History donepezil [Aricept] 10 mg PO HS 02/24/18 07/23/18 History escitalopram oxalate [Lexapro] 5 mg PO DAILY 02/24/18 07/23/18 History mirtazapine [Remeron] 15 mg PO HS 02/24/18 07/23/18 History multivitamin with minerals 1 tab PO DAILY 02/24/18 07/23/18 History Physical Exam Vital signs: Vital Signs 07/28/18 00:00 07/28/18 00:05 07/28/18 04:00 Temperature 98.0 F Pulse Rate 58 L 58 L 60 Respiratory Rate 18 Blood Pressure 139/66 Pulse Oximetry 95 07/28/18 04:30 07/28/18 08:00 07/28/18 10:40 Temperature 97.6 F 97.8 F Pulse Rate 59 L 59 L 65 Respiratory Rate 19 24 Blood Pressure 149/65 H 130/60 Pulse Oximetry 96 98 07/28/18 12:00 07/28/18 16:00 Temperature 97.8 F 98.1 F Pulse Rate 61 60 Respiratory Rate 23 22 Blood Pressure 159/69 H 157/67 H Pulse Oximetry 97 99 Intake & Output 07/28/18 07/28/18 07/29/18 06:59 18:59 06:59 Intake Total 750 / 750 Balance 750 / 750 Weight 56.8 kg Intake: Oral 750 / 750 Other: # Voids 3 2 # Incontinent Voids 1 Date of Last Bowel Movement 07/28/18 07/27/18 # Bowel Movements 2 Narrative: GENERAL: Well-developed, well-nourished elderly female sitting up in bed in no acute distress. SKIN: Warm and dry. HEAD: Atraumatic. Normocephalic. EYES: Pupils equal/round. No scleral icterus. No injection or drainage. ENT: No nasal bleeding or discharge. Mucous membranes pink and moist. NECK: Trachea midline. CARDIOVASCULAR: Regular rate and rhythm. RESPIRATORY: Clear to auscultation. Breath sounds equal bilaterally. GASTROINTESTINAL: Abdomen soft, nondistended, nontender. + Bowel sounds MUSCULOSKELETAL: Extremities without clubbing, cyanosis, or edema. No obvious deformities. NEUROLOGICAL: Awake and alert oriented to self and place. No obvious cranial nerve deficits. Motor grossly within normal limits. Normal speech. PSYCHIATRIC: Calm and pleasant, poor historian. - Urinary Catheter Management Straight Cath placed during this visit: yes, but has since been removed by the nurse Reason for continuing: Other continuation reason Insertion date: 07/24/18 Insertion time: 17:35 Removal date: 07/24/18 Removal time: 10:19 Indwelling Urethral Catheter Cath placed during this visit: no Reason for continuing: Other continuation reason Results 07/26/18 04:52 07/27/18 09:43 Comprehensive Metabolic Panel 07/27/18 Range/Units 09:43 Sodium 146 H (136-145) meq/L Potassium 3.8 (3.5-5.1) meq/L Chloride 114 H (98-107) meq/L Carbon Dioxide 25.3 (21.0-32.0) meq/L BUN 24 H (7-18) mg/dL Creatinine 0.93 (0.50-1.00) mg/dL Calcium 7.8 L (8.5-10.1) mg/dL Intake and Output 07/28/18 07/28/18 07/28/18 06:59 14:59 22:59 Intake Total 750 / 750 Balance 750 / 750 Intake: Oral 750 / 750 Other: # Voids 3 2 # Incontinent Voids 1 Date of Last Bowel Movement 07/28/18 07/27/18 # Bowel Movements 2 Weight 56.8 kg Assessment and Plan - Assessment (1) Afib Code(s): I48.91 - Unspecified atrial fibrillation Status: Acute (2) Cardiomyopathy Code(s): I42.9 - Cardiomyopathy, unspecified Status: Acute - Plan 1. Coffee-grounds emesis concerning for an upper gastrointestinal bleed. Per primary team 2. Atrial fibrillation, which appears to be new onset. Converted to sinus after Cardizem Low dose BB Not an anticoagulation candidate due to GI bleed 3. Chronic kidney disease. 4. Coronary artery disease. 5. Hypertension. 6. Depression. 7. Cardiomyopathy EF 25-30% Not a candidate for ischemic work up with concern for GI bleed, age, overall comorbidities Possible tachyarrhythmia induced Repeat echo in 3 months if heart rates stable BB changed to Coreg ROJAS-I add Con't medical management 8. No further cardiovascular work up Will see PRN, call with questions
== END 2018-07-28 17:45 | DRG 871 ==
LOC: NEPC 19:17 → NEDA 22:38 → N06 07-24 03:16
PROVIDERS: ADMIT Internal Medicine; ATTEND Internal Medicine
CPT/HCPCS: 74176; 76775; 80048; 80053; 81001; 82140; 82948; 82962; 83605; 83735; 85014; 85018; 85025; 85610; 85730; 86403; 86850; 86900; 86901; 87040; 87077; 87086; 87186; 87205; 87493; 90765; 90775; 93005; 93306; 96365; 96375; 97110; 97116; 97163; 99285; C9113; J0744; J2270; J2405; J2543; J7030; J7040; J7070